=== PATIENT | female | born 1985 | race American Indian/Alaskan Native ===

== ENCOUNTER 2020-01-25 10:53 | Day surgery (SDC) | payer OTHER, MEDICAID ==
--- NOTE | 2020-01-25 08:36 | History and Physical Report ---
History of Present Illness Date of examination: 01/25/20 Chief complaint: , vaginal bleeding History of present illness: Pt is a 34 year old [place] LMP 10/18/19 at 14w1d by LMP was noted to have a missed at 11 wks on 01/23/20. On 01/24/20 she presented with vaginal bleeding and presents today for surgical management of incomplete . Past History Past Medical History: GERD Past Surgical History: D&C Family/Genetic History: stroke Social history: - Obstetrical History Expected Date of Delivery: 07/24/20 Actual Gestation: 14 Week(s) 1 Day(s) : 2 Para: 0 Hx # Term Pregnancies: 0 Number of Pregnancies: 0 Spontaneous Abortions: 0 Induced : 1 Number of Living Children: 0 Review of Systems All systems: negative - Physical Exam Breasts: Positive: deferred Abdomen: Positive: soft Genitourinary (Female): Positive: normal external genitalia Extremities: Positive: normal Results All other labs normal. Assessment and Plan A: Incomplete at 11 wks P: Proceed with suction dilation and curettage and other indicated procedures
[~2020-01-25 10:53] MED LIST: LACTATED RINGERS 1,000 ML IV SCH
--- NOTE | 2020-01-25 11:33 | Anesthesia Consultation ---
Anesthesia Consult and Med Hx Date of service: 01/25/20 - Airway Anesthetic Teeth Evaluation: Good ROM Head & Neck: Adequate Mental/Hyoid Distance: Adequate Mallampati Class: Class III Intubation Access Assessment: Possibly Difficult - Pulmonary Exam CTA: Yes - Cardiac Exam Cardiac Exam: RRR - Pre-Operative Health Status ASA Pre-Surgery Classification: ASA1 Proposed Anesthetic Plan: General - Pulmonary Hx Smoking: No Hx Respiratory Symptoms: No - Cardiovascular System Hx Hypertension: No - Central Nervous System CVA: No - Gastrointestinal Hx Gastroesophageal Reflux Disease: Yes (well controlled) - Endocrine Hx Renal Disease: No Hx Liver Disease: No Hx Insulin Dependent Diabetes: No Hx Non-Insulin Dependent Diabetes: No Hx Thyroid Disease: No - Other Systems Hx Obesity: No - Additional Comments Anesthesia Medical History Comments: No prior GA. No FHx anesthetic complications. Missed Ab at 11wks.
[2020-01-25] MEDS ORDERED: fentaNYL 100 MCG/2 ML INJ IV PRN (11:34)
--- NOTE | 2020-01-25 11:34 | Anesthesia Day of Surgery ---
Anesthesia Day of Surgery - Day of Surgery Patient Examined: Yes Patient H&P Reviewed: Yes Patient is NPO: Yes
[2020-01-25] MEDS ORDERED: miSOPROStol 200 MCG TAB PR ONE ×2 (12:00→14:27)
[2020-01-25] MEDS ORDERED: DOXYCYCLINE HYCLATE 100 MG in SODIUM CHLORIDE 0.9% 250ML 250 ML IV ONE (12:00)
[2020-01-25] MEDS ORDERED: SCOPOLAMINE TRANSDERMAL PATCH 72 HR TD NR (12:00)
[2020-01-25] MEDS ORDERED: MIDAZOLAM 2 MG/2 ML INJ IV NR (12:00)
[2020-01-25] MEDS ORDERED: METHYLERGONOVINE MALEATE 0.2 MG/ML VIAL IM ONE ×2 (12:00→14:28)
[2020-01-25 12:26] LABS: Basophils % (Auto) 0.3 % (0.0-1.8); Eosinophils # (Auto) 0.1 K/mm3 (0.0-0.4); Eosinophils % (Auto) 1.6 % (0.0-4.3); Hematocrit 35.4 % (30.3-42.9); Hemoglobin 11.8 gm/dl (10.1-14.3); Lymphocytes # (Auto) 1.6 K/mm3 (1.2-5.4); Lymphocytes % (Auto) 22.8 % (13.4-35.0); Mean Corpuscular HGB Conc 33 % (30-34); Mean Corpuscular Volume 93 fl (79-97); Monocytes # (Auto) 0.5 K/mm3 (0.0-0.8); Monocytes % (Auto) 7.2 % (0.0-7.3); Platelet Count 226 K/mm3 (140-440); Red Cell Distribution Width 13.9 % (13.2-15.2)
[2020-01-25] MEDS ORDERED: SILVER NITRATE APPLICATOR 1 EA TP ONE (13:31)
[2020-01-25] MEDS ORDERED: HYDROmorphone 1 MG/1 ML INJ ONE (13:59)
[2020-01-25] MEDS ORDERED: LIDOCAINE MPF (2%) 20 MG/1 ML VIAL 5 ML ONE (13:59)
[2020-01-25] MEDS ORDERED: propofoL 200 MG/20 ML VIAL IV ONE (13:59)
[2020-01-25] MEDS ORDERED: ONDANSETRON 4 MG/2 ML INJ ONE (14:29)
[2020-01-25] MEDS ORDERED: KETOROLAC 30 MG/1 ML INJ ONE (14:29)
[2020-01-25] MEDS ORDERED: SODIUM CHLORIDE 0.9% IRR 1,000 ML BOTTLE IR ONE (14:29)
--- NOTE | 2020-01-25 14:34 | Operative Report ---
Operative Report Operative Report: Date of procedure: January 25, 2020 Preoperative diagnosis: Incomplete at 11 wks Postoperative diagnosis: Same Procedure: Suction Dilation and Curettage Surgeon: Winnie Fernandez MD Anesthesia: General Findings: 1) Small mobile antervered uterus which sounded to 11 cm 2) Open cervical os with products of conception 3) No fetus visualized on ultrasound prior to the start of the procedure EBL: 50 mL IVF: 700 mL Urine output: 200 mL, clear, prior to procedure Specimens: Products of conception to pathology Drains: None Complications: None. Counts correct x 2 Disposition: Stable to PACU Indication for procedure: Pt is a 34 year old who presents for surgical management of incomplete at 11 wks. Procedure in detail: After the risks, benefits, alternatives and complications were explained to the patient she gave informed consent for the procedure. She was subsequently taken to the operating room with her IV noted to be running well. She was placed in the dorsal supine position and SCDs were noted to be in place and functioning. General anesthesia was then induced without difficulty. She was then placed in the dorsal lithotomy position and prepped and draped in a normal sterile fashion. A timeout was performed. An ultrasound was performed prior to the start of the procedure indicating no fetus was present, just products of conception. The bladder was emptied yielding 200 mL of clear urine. A bi-valve speculum was placed into the vagina for visualization of the cervix. A single-tooth tenaculum was placed on the anterior lip of the cervix. The cervix was serially dilated to a #29 Antonio dilator. A number 10 rigid suction curette was used to evacuate the uterine cavity. A sharp curettage was done and noted to be gritty x 4 quadrants. Ultrasound confirms a thin endometrial stripe. A dose of Methergine 0.2 mg IM was given to ensure hemostasis. All instruments were then removed from the vagina atraumatically. Misoprostol 800 mg was placed per rectum. At this time, the procedure was ended. The patient was placed into the dorsal supine position and extubated without difficulty. She was then taken to the PACU in stable condition. All counts were correct x 2.
--- NOTE | 2020-01-25 14:38 | Short Stay Summary ---
Short Stay Documentation Date of service: 01/25/20 - History H&P: dictated Social history: - Allergies and Medications Current Medications: Allergies chloroquine Allergy (Verified 01/25/20 11:15) Unknown Active Medications Fentanyl (Sublimaze) 50 mcg IV Q5MIN PRN PRN Reason: Pain , Severe (7-10) Lactated Ringer's (Lactated Ringers) 1,000 mls @ 100 mls/hr IV DIRECT PETE Last Admin: 01/25/20 12:00 Dose: 100 mls/hr Documented by: Midazolam HCl (Versed) 2 mg IV PREOP NR Stop: 01/25/20 23:59 Last Admin: 01/25/20 12:50 Dose: 2 mg Documented by: Scopolamine (Transderm-Scop) 1 each TD PREOP NR Stop: 01/25/20 18:00 Last Admin: 01/25/20 12:50 Dose: 1 each Documented by: - Physical exam Breasts: deferred - Brief post op/procedure progress note Date of procedure: 01/25/20 Pre-op diagnosis: Incomplete at 11 wks Post-op diagnosis: same Procedure: Suction dilation and curettage Anesthesia: MAC Findings: 1) Small mobile antervered uterus which sounded to 11 cm 2) Open cervical os with products of conception 3) No fetus visualized on ultrasound prior to the start of the procedure Surgeon: ALLAN FERNANDEZ Estimated blood loss: 50-100ml (50 mL) Pathology: list (products of conception) Specimen disposition: to lab Condition: stable - Hospital course Hospital course: Patient underwent suction dilation and curettage which he tolerated well. She was observed in the PACU until she met discharge criteria. She will follow-up in the office in [address] Fernandez. - Disposition Condition at discharge: Stable Disposition: DC-01 TO HOME OR SELFCARE - Discharge Diagnoses (1) Incomplete Status: Acute Short Stay Discharge Plan Activity: other (Nothing in vagina x 4 wks, no tub baths ) Weight Bearing Status: Full Weight Bearing Diet: regular Follow up with: PRIMARY CARE, [Primary Care Provider] - 7 Days Prescriptions: Doxycycline Hyclate 100 mg PO BID #14 tablet. Ibuprofen [Motrin] 800 mg PO Q8HR PRN #30 tablet PRN Reason: Pain, Moderate (4-6) oxyCODONE /ACETAMINOPHEN [Percocet 5/325] 1 tab PO Q6HR PRN #20 tablet PRN Reason: Pain
--- NOTE | 2020-01-25 14:53 | Ultrasound Report ---
ULTRASOUND GUIDANCE INTRAOPERATIVE HISTORY: Retained products of conception FINDINGS: Transabdominal grayscale ultrasound imaging was provided during D and C by [facility]MENT SPECIALIST. The init ial images demonstrate a slightly prominent endometrium measuring 1.1 cm in thickness. Post procedure the endometrium measures 3 mm. Please correlate with the procedural report as needed. IMPRESSION: Successful D and C under ultrasound guidance. Signer Name: Malvin Nieves Jr, MD Signed: 01/25/2020 2:49 PM Workstation Name: [id number]
[2020-01-25 18:53] VITALS: BP 112/60
--- NOTE | 2020-01-25 19:18 | Post Anesthesia Evaluation ---
- Post Anesthesia Evaluation Patient Participated: Yes Airway Patent: Yes Stable Respiratory Function: Yes Nausea/Vomiting: No Temp > 96.8F: Yes Pain Manageable: Yes Adequeate Hydration: Yes Anesthesia Complications: No Block Receding Appropriately: Not Applicable Patient on Ventilator: No
== END 2020-01-25 10:54 | disposition home or self-care (01) ==
LOC: OR 10:53
PROVIDERS: ATTEND Obstetrics & Gynecology
DX: O03.4 Incomplete spontaneous abortion without complication (principal); Z3A.11 11 weeks gestation of pregnancy; K21.9 Gastro-esophageal reflux disease without esophagitis; Z79.899 Other long term (current) drug therapy; Z88.8 Allergy status to other drugs, medicaments and biological substances
CPT/HCPCS: 36415; 59812; 76998; 85025; 86850; 86900; 86901; 88305; J1170; J1885; J2210; J2250; J2405; J2704; J7050; J7120

== ENCOUNTER 2021-03-18 15:16 | Inpatient (IN) | payer MEDICAID, OTHER ==
[2021-03-18] MEDS: LACTATED RINGERS 1,000 ML IV SCH (16:35)
[2021-03-18] MEDS: BETAMET ACET/BETAMET NA PH 6 MG/ML INJ 5 ML MDV IM SCH (18:19)
--- NOTE | 2021-03-18 20:11 | History and Physical Report ---
History of Present Illness Date of examination: 03/18/21 Chief complaint: Oligohydramnios History of present illness: 35yo @ 34w4d presents as admit from [facility] evaluation for oligohydramnios. Evaluation secondary to advanced maternal age and chronic hypertension. She denies contractions, LOF, or vaginal bleeding. +FM. No complaints. PNC per [facility]. Past History Past Medical History: hypertension Past Surgical History: D&C [employer] History: herpes Family/Genetic History: stroke Social history: no significant social history - Obstetrical History Expected Date of Delivery: 04/25/21 Actual Gestation: 34 Week(s) 5 Day(s) : 3 Para: 0 Spontaneous Abortions: 2 Medications and Allergies Allergies Allergy/AdvReac Type Severity Reaction Status Date / Time chloroquine Allergy Unknown Verified 01/25/20 11:15 Home Medications Medication Instructions Recorded Confirmed Last Taken Type Plus Tablet 1 tab PO DAILY 03/19/21 03/19/21 03/18/21 08:00 History Active Meds: Active Medications Betamethasone Acet/Betameth SodPhos (Betamet Acet/Betamet Na Ph 6 Mg/Ml Inj 5 Ml Mdv) 12 mg IM Q24H PETE Stop: 03/19/21 19:01 Last Admin: 03/18/21 18:19 Dose: 12 mg Documented by: Lactated Ringer's (Lactated Ringers) 1,000 mls @ 125 mls/hr IV DIRECT PETE Last Admin: 03/18/21 16:35 Dose: 125 mls/hr Documented by: - Vital Signs Vital signs: Vital Signs Pulse BP 76 118/67 03/18/21 15:53 03/18/21 15:53 Temp Pulse Resp BP Pulse Ox 98.0 F 84 20 128/64 99 03/18/21 19:24 03/18/21 20:08 03/18/21 19:24 03/18/21 19:21 03/18/21 20:08 - Physical Exam Breasts: Positive: normal Cardiovascular: Regular rate Lungs: Positive: Clear to auscultation Abdomen: Positive: normal appearance, normal bowel sounds. Negative: tenderness, guarding Genitourinary (Female): Positive: normal external genitalia Uterus: Positive: normal size Extremities: Positive: normal - Obstetrical FHR: category 1 Uterine Contraction Monitor Mode: External Uterine Contraction Pattern: Irregular Uterine Contraction Intensity: Mild Results All other labs normal. Assessment and Plan -continuous IV fluids -repeat BPP in 24 hours -continuous monitoring - Patient Problems (1) Oligohydramnios antepartum Current Visit: Yes Status: Acute Plan to address problem: -decreased GAYLA on MFM eval -continuous fluids -repeat BPP in AM -Beta x2 -MFM recommendations reviewed, if GAYLA <5cm on repeat evaluation plan for inpatient observation until delivery 36-37wks -if GAYLA>5 plan for outpatient surveillance -delivery earlier if warranted for maternal/ indications PNC per [facility] reviewed on chart. O+/Liz/HIV-HepB neg/RPRNR/OGTTelevated- 3OGTT neg -GBS ordered (2) Chronic hypertension affecting Current Visit: Yes Status: Acute Plan to address problem: labetalol 100 q d -monitor for s/s of superimposed preeclampsia (3) Advanced maternal age during Current Visit: Yes Status: Acute (4) Herpes infection in Current Visit: Yes Status: Acute Plan to address problem: -valacyclovir daily (5) Glucose intolerance Current Visit: Yes Status: Acute Plan to address problem: -3OGTT wnl
[2021-03-18] MEDS ORDERED: PRENATAL VIT27-FE FUMARATE-FOLIC ACID VIT TAB PO ONE (20:29)
[2021-03-18] MEDS: valACYclovir 500 MG TAB PO SCH (21:35)
[2021-03-18 21:58] LABS: Bilirubin,Urine NEG (Negative); Blood,Urine NEG (Negative); Color,Urine Straw (Yellow); Protein,Urine <15 mg/dL mg/dL (Negative); RBC,Urine < 1.0 /HPF (0.0-6.0); Urobilinogen,Urine < 2.0 mg/dL (<2.0); WBC,Urine < 1.0 /HPF (0.0-6.0)
[2021-03-19] MEDS: LACTATED RINGERS 1,000 ML IV SCH ×2 (04:31→18:35)
--- NOTE | 2021-03-19 07:45 | Progress Note ---
Assessment and Plan - Patient Problems (1) Oligohydramnios antepartum Current Visit: Yes Status: Acute Plan to address problem: Plan for induction at 36 weeks Subjective - Subjective Date of service: 03/19/21 Interval history: 35-year-old -0-2-0 at 34+5 weeks admitted for oligohydramnios. Plan is to deliver at 36 weeks. The patient is currently without complaints. Patient reports: no new complaints, no loss of fluid Objective - Vital Signs Vital Signs: Vital Signs - 12hr 03/18/21 03/18/21 03/18/21 19:45 19:50 19:55 Temperature Pulse Rate 81 86 83 Respiratory Rate Blood Pressure O2 Sat by Pulse 98 99 98 Oximetry 03/18/21 03/18/21 03/18/21 20:03 20:08 20:13 Temperature Pulse Rate 81 84 84 Respiratory Rate Blood Pressure O2 Sat by Pulse 99 99 99 Oximetry 03/18/21 03/18/21 03/18/21 20:18 20:23 20:28 Temperature Pulse Rate 83 81 81 Respiratory Rate Blood Pressure O2 Sat by Pulse 99 100 99 Oximetry 03/18/21 03/18/21 03/18/21 20:33 20:37 20:43 Temperature Pulse Rate 79 73 77 Respiratory Rate Blood Pressure O2 Sat by Pulse 98 98 98 Oximetry 03/18/21 03/18/21 03/18/21 20:48 20:53 20:58 Temperature Pulse Rate 73 85 82 Respiratory Rate Blood Pressure O2 Sat by Pulse 98 98 98 Oximetry 03/18/21 03/18/21 03/18/21 21:07 21:12 21:17 Temperature Pulse Rate 85 66 78 Respiratory Rate Blood Pressure O2 Sat by Pulse 100 99 99 Oximetry 03/18/21 03/18/21 03/18/21 21:22 21:27 21:32 Temperature Pulse Rate 72 75 81 Respiratory Rate Blood Pressure O2 Sat by Pulse 99 98 99 Oximetry 03/18/21 03/18/21 03/18/21 21:37 21:42 21:47 Temperature Pulse Rate 76 69 78 Respiratory Rate Blood Pressure O2 Sat by Pulse 99 99 99 Oximetry 03/18/21 03/18/21 03/18/21 21:52 21:57 22:08 Temperature Pulse Rate 80 76 78 Respiratory Rate Blood Pressure O2 Sat by Pulse 99 99 98 Oximetry 05/04/0303/18/21 03/18/21 22:13 22:18 22:23 Temperature Pulse Rate 72 68 75 Respiratory Rate Blood Pressure O2 Sat by Pulse 99 100 99 Oximetry 03/18/21 03/18/21 03/18/21 22:28 22:33 22:38 Temperature Pulse Rate 74 67 66 Respiratory Rate Blood Pressure O2 Sat by Pulse 99 98 99 Oximetry 03/18/21 03/18/21 03/18/21 22:43 22:48 22:53 Temperature Pulse Rate 75 91 H 74 Respiratory Rate Blood Pressure O2 Sat by Pulse 98 98 98 Oximetry 03/18/21 03/18/21 03/18/21 22:58 23:03 23:11 Temperature Pulse Rate 78 81 88 Respiratory Rate Blood Pressure O2 Sat by Pulse 98 98 99 Oximetry 03/18/21 03/18/21 03/18/21 23:16 23:21 23:26 Temperature Pulse Rate 82 79 79 Respiratory Rate Blood Pressure O2 Sat by Pulse 99 98 97 Oximetry 03/18/21 03/18/21 03/18/21 23:31 23:36 23:41 Temperature Pulse Rate 77 86 95 H Respiratory Rate Blood Pressure 103/58 O2 Sat by Pulse 98 97 98 Oximetry 03/18/21 03/18/21 03/18/21 23:46 23:51 23:56 Temperature Pulse Rate 69 74 72 Respiratory Rate Blood Pressure O2 Sat by Pulse 97 98 98 Oximetry 03/19/21 03/19/21 03/19/21 00:01 00:06 00:11 Temperature Pulse Rate 73 70 78 Respiratory Rate Blood Pressure O2 Sat by Pulse 98 98 98 Oximetry 03/19/21 03/19/21 03/19/21 00:16 00:23 00:28 Temperature Pulse Rate 69 82 85 Respiratory Rate Blood Pressure O2 Sat by Pulse 98 99 99 Oximetry 03/19/21 03/19/21 03/19/21 00:33 00:38 00:43 Temperature Pulse Rate 80 76 79 Respiratory Rate Blood Pressure O2 Sat by Pulse 99 99 99 Oximetry 03/19/21 03/19/21 03/19/21 00:48 00:53 00:58 Temperature Pulse Rate 86 74 90 Respiratory Rate Blood Pressure O2 Sat by Pulse 98 98 98 Oximetry 03/19/21 03/19/21 03/19/21 01:00 01:03 01:08 Temperature 98.1 F Pulse Rate 82 75 Respiratory Rate Blood Pressure O2 Sat by Pulse 98 99 Oximetry 03/19/21 03/19/21 03/19/21 01:13 01:18 01:23 Temperature Pulse Rate 93 H 78 92 H Respiratory Rate Blood Pressure O2 Sat by Pulse 98 98 98 Oximetry 03/19/21 03/19/21 03/19/21 01:28 01:33 01:41 Temperature Pulse Rate 80 74 77 Respiratory Rate Blood Pressure O2 Sat by Pulse 98 98 99 Oximetry 03/19/21 03/19/21 03/19/21 01:46 01:51 01:56 Temperature Pulse Rate 82 80 88 Respiratory Rate Blood Pressure O2 Sat by Pulse 99 99 100 Oximetry 03/19/21 03/19/21 03/19/21 02:01 02:06 02:11 Temperature Pulse Rate 77 87 91 H Respiratory Rate Blood Pressure O2 Sat by Pulse 98 98 98 Oximetry 03/19/21 03/19/21 03/19/21 02:16 02:21 02:26 Temperature Pulse Rate 83 91 H 91 H Respiratory Rate Blood Pressure O2 Sat by Pulse 99 98 98 Oximetry 03/19/21 03/19/21 03/19/21 02:31 02:40 02:45 Temperature Pulse Rate 75 87 93 H Respiratory Rate Blood Pressure O2 Sat by Pulse 98 99 99 Oximetry 03/19/21 03/19/21 03/19/21 02:50 02:55 03:00 Temperature Pulse Rate 80 97 H 92 H Respiratory Rate Blood Pressure O2 Sat by Pulse 99 99 98 Oximetry 03/19/21 03/19/21 03/19/21 03:05 03:10 03:15 Temperature Pulse Rate 75 80 78 Respiratory Rate Blood Pressure 107/61 O2 Sat by Pulse 98 99 99 Oximetry 03/19/21 03/19/21 03/19/21 03:20 03:25 03:30 Temperature Pulse Rate 96 H 86 91 H Respiratory Rate Blood Pressure O2 Sat by Pulse 99 99 100 Oximetry 03/19/21 03/19/21 03/19/21 03:35 03:40 03:45 Temperature Pulse Rate 91 H 78 91 H Respiratory Rate Blood Pressure O2 Sat by Pulse 99 98 98 Oximetry 03/19/21 03/19/21 03/19/21 03:50 03:55 04:00 Temperature Pulse Rate 96 H 81 91 H Respiratory Rate Blood Pressure O2 Sat by Pulse 99 98 98 Oximetry 03/19/21 03/19/21 03/19/21 04:05 04:12 04:17 Temperature Pulse Rate 81 96 H 89 Respiratory Rate Blood Pressure O2 Sat by Pulse 98 100 99 Oximetry 03/19/21 03/19/21 03/19/21 04:22 04:27 04:32 Temperature Pulse Rate 92 H 78 99 H Respiratory Rate Blood Pressure O2 Sat by Pulse 98 99 99 Oximetry 03/19/21 03/19/21 03/19/21 04:37 04:42 04:47 Temperature Pulse Rate 71 92 H 76 Respiratory Rate Blood Pressure O2 Sat by Pulse 98 98 99 Oximetry 03/19/21 03/19/21 03/19/21 04:52 04:57 05:02 Temperature Pulse Rate 80 97 H 75 Respiratory Rate Blood Pressure O2 Sat by Pulse 99 99 99 Oximetry 03/19/21 03/19/21 03/19/21 05:07 05:15 05:20 Temperature Pulse Rate 85 94 H 79 Respiratory Rate Blood Pressure O2 Sat by Pulse 99 99 99 Oximetry 03/19/21 03/19/21 03/19/21 05:25 05:30 05:35 Temperature Pulse Rate 65 77 76 Respiratory Rate Blood Pressure O2 Sat by Pulse 99 99 99 Oximetry 03/19/21 03/19/21 03/19/21 05:40 05:45 05:50 Temperature Pulse Rate 70 90 91 H Respiratory Rate Blood Pressure O2 Sat by Pulse 99 99 98 Oximetry 03/19/21 03/19/21 03/19/21 05:55 06:00 06:05 Temperature Pulse Rate 92 H 88 95 H Respiratory Rate Blood Pressure O2 Sat by Pulse 99 98 98 Oximetry 03/19/21 03/19/21 03/19/21 06:10 06:14 06:15 Temperature Pulse Rate 76 96 H 99 H Respiratory Rate Blood Pressure 98/55 O2 Sat by Pulse 98 99 Oximetry 03/19/21 03/19/21 03/19/21 06:17 06:20 06:25 Temperature 98.6 F Pulse Rate 102 H 87 Respiratory 20 Rate Blood Pressure O2 Sat by Pulse 98 98 99 Oximetry 03/19/21 03/19/21 03/19/21 06:30 06:35 06:40 Temperature Pulse Rate 81 95 H 99 H Respiratory Rate Blood Pressure O2 Sat by Pulse 98 99 98 Oximetry 03/19/21 03/19/21 03/19/21 06:45 06:50 06:55 Temperature Pulse Rate 80 89 103 H Respiratory Rate Blood Pressure O2 Sat by Pulse 98 99 99 Oximetry 03/19/21 03/19/21 03/19/21 07:00 07:05 07:10 Temperature Pulse Rate 102 H 99 H 76 Respiratory Rate Blood Pressure O2 Sat by Pulse 99 98 98 Oximetry 03/19/21 03/19/21 03/19/21 07:15 07:20 07:25 Temperature Pulse Rate 75 70 75 Respiratory Rate Blood Pressure O2 Sat by Pulse 98 98 98 Oximetry 03/19/21 03/19/21 03/19/21 07:30 07:35 07:40 Temperature Pulse Rate 89 77 91 H Respiratory Rate Blood Pressure O2 Sat by Pulse 98 98 98 Oximetry - Labs Labs: Laboratory Results - last 24 hr 03/18/21 03/18/21 20:35 21:41 Urine Color Straw Urine Turbidity Clear Urine pH 7.0 Ur Specific [place] 1.006 Urine Protein <15 mg/dl Urine Glucose (UA) Neg Urine Ketones Neg Urine Blood Neg Urine Nitrite Neg Urine Bilirubin Neg Urine Urobilinogen < 2.0 Ur Leukocyte Esterase Neg Urine WBC (Auto) < 1.0 Urine RBC (Auto) < 1.0 U Epithel Cells (Auto) 1.0 Membranes Rupture Negative
--- NOTE | 2021-03-19 08:06 | Consultation ---
History of Present Illness Consult date: 03/19/21 Past History Past Medical History: hypertension Past Surgical History: D&C [employer] History: herpes Family/Genetic History: stroke - Obstetrical History : 3 Medications and Allergies Allergies Allergy/AdvReac Type Severity Reaction Status Date / Time chloroquine Allergy Unknown Verified 01/25/20 11:15 Home Medications Medication Instructions Recorded Confirmed Last Taken Type Plus Tablet 1 tab PO DAILY 03/19/21 03/19/21 03/18/21 08:00 History Active Meds: Active Medications Betamethasone Acet/Betameth SodPhos (Betamet Acet/Betamet Na Ph 6 Mg/Ml Inj 5 Ml Mdv) 12 mg IM Q24H PETE Stop: 03/19/21 19:01 Last Admin: 03/18/21 18:19 Dose: 12 mg Documented by: Lactated Ringer's (Lactated Ringers) 1,000 mls @ 125 mls/hr IV DIRECT PETE Last Admin: 03/19/21 04:31 Dose: 125 mls/hr Documented by: Labetalol HCl (Labetalol 100 Mg Tab) 100 mg PO QDAY PETE Valacyclovir HCl (Valacyclovir 500 Mg Tab) 1,000 mg PO QDAY PETE Last Admin: 03/18/21 21:35 Dose: 1,000 mg Documented by: - Vital Signs Vital signs: Vital Signs Pulse BP 76 118/67 03/18/21 15:53 03/18/21 15:53 Temp Pulse Resp BP Pulse Ox 98.6 F 90 20 98/55 98 03/19/21 06:17 03/19/21 08:00 03/19/21 06:17 03/19/21 06:14 03/19/21 08:00 Results All other labs normal. [facility] and [facility] to follow Pt seen yesterday in the office and was noted to have an GAYLA of 5cm She was sent to [facility] for evalaution to r/o ROM . ROM test was negative A: IUP at 34 5/7 weeks gestation -complete course of steroids CHTN stable on current labetalol dose Decreased GAYLA : continuous monitoring, monitor for Cat III tracing Repeat GAYLA /BPP/Doppler today Continued hospitalization is advised if the GAYLA remains 5cm or less
[2021-03-19] MEDS: valACYclovir 500 MG TAB PO SCH (10:05)
--- NOTE | 2021-03-19 12:37 | Ultrasound Report ---
ULTRASOUND BIOPHYSICAL PROFILE INDICATION: LOW GAYLA. COMPARISON: None available. FINDINGS: heart rate is 133 beats per minute. breathing movement = 2 Gross body movement = 2 tone = 2 Qualitative amniotic fluid volume = 0 IMPRESSION: biophysical profile = 04/21 Signer Name: Malvin Nieves Jr, MD Signed: 03/19/2021 12:32 PM Workstation Name: [id number]
[2021-03-19 18:29] LABS: Hematocrit 31.3 % (30.3-42.9); Hemoglobin 10.3 gm/dl (10.1-14.3); Mean Corpuscular HGB Conc 33 % (30-34); Mean Corpuscular Volume 94 fl (79-97); Platelet Count 184 K/mm3 (140-440); Red Blood Count 3.34 M/mm3 (3.65-5.03); Red Cell Distribution Width 13.5 % (13.2-15.2)
[2021-03-19] MEDS: BETAMET ACET/BETAMET NA PH 6 MG/ML INJ 5 ML MDV IM SCH (18:35)
[2021-03-20] MEDS: LACTATED RINGERS 1,000 ML IV SCH ×2 (04:51→22:46)
[2021-03-20] MEDS: valACYclovir 500 MG TAB PO SCH (10:07)
--- NOTE | 2021-03-20 13:18 | Progress Note ---
Assessment and Plan - Patient Problems (1) Oligohydramnios antepartum Current Visit: Yes Status: Acute Plan to address problem: continue inpatient monitoring with delivery at 36 weeks Subjective - Subjective Date of service: 03/20/21 Interval history: 35-year-old -0-2-0 at 34+6 weeks admitted for oligohydramnios. Plan is to deliver at 36 weeks. Patient is having regular contractions that are not painful. Patient reports: contractions, no loss of fluid Objective - Vital Signs Vital Signs: Vital Signs - 12hr 03/20/21 03/20/21 03/20/21 01:19 01:24 01:29 Temperature Pulse Rate 77 73 79 Respiratory Rate Blood Pressure Blood Pressure [Left] O2 Sat by Pulse 99 98 98 Oximetry 03/20/21 03/20/21 03/20/21 01:34 01:37 01:39 Temperature Pulse Rate 76 88 77 Respiratory Rate Blood Pressure 100/54 Blood Pressure [Left] O2 Sat by Pulse 98 98 Oximetry 03/20/21 03/20/21 03/20/21 01:44 01:49 01:54 Temperature Pulse Rate 77 72 78 Respiratory Rate Blood Pressure Blood Pressure [Left] O2 Sat by Pulse 97 97 97 Oximetry 03/20/21 03/20/21 03/20/21 02:03 02:08 02:13 Temperature Pulse Rate 92 H 75 78 Respiratory Rate Blood Pressure Blood Pressure [Left] O2 Sat by Pulse 94 98 97 Oximetry 03/20/21 03/20/21 03/20/21 02:18 02:23 02:28 Temperature Pulse Rate 62 66 65 Respiratory Rate Blood Pressure Blood Pressure [Left] O2 Sat by Pulse 98 98 98 Oximetry 03/20/21 03/20/21 03/20/21 02:33 02:38 02:43 Temperature Pulse Rate 64 71 63 Respiratory Rate Blood Pressure Blood Pressure [Left] O2 Sat by Pulse 98 98 97 Oximetry 03/20/21 03/20/21 03/20/21 02:48 02:53 02:58 Temperature Pulse Rate 67 64 64 Respiratory Rate Blood Pressure Blood Pressure [Left] O2 Sat by Pulse 98 97 97 Oximetry 03/20/21 03/20/21 03/20/21 03:03 03:08 03:13 Temperature Pulse Rate 89 74 70 Respiratory Rate Blood Pressure Blood Pressure [Left] O2 Sat by Pulse 98 98 98 Oximetry 03/20/21 03/20/21 03/20/21 03:18 03:23 03:28 Temperature Pulse Rate 75 90 77 Respiratory Rate Blood Pressure Blood Pressure [Left] O2 Sat by Pulse 98 98 97 Oximetry 03/20/21 03/20/21 03/20/21 03:29 03:33 03:37 Temperature Pulse Rate 104 H 91 H 82 Respiratory Rate Blood Pressure 93/55 Blood Pressure [Left] O2 Sat by Pulse 91 98 Oximetry 03/20/21 03/20/21 03/20/21 03:38 03:40 03:43 Temperature 98.1 F Pulse Rate 82 78 Respiratory Rate Blood Pressure Blood Pressure [Left] O2 Sat by Pulse 98 98 Oximetry 03/20/21 03/20/21 03/20/21 03:48 03:53 04:03 Temperature Pulse Rate 76 73 87 Respiratory Rate Blood Pressure Blood Pressure [Left] O2 Sat by Pulse 97 97 99 Oximetry 03/20/21 03/20/21 03/20/21 04:08 04:13 04:18 Temperature Pulse Rate 71 62 62 Respiratory Rate Blood Pressure Blood Pressure [Left] O2 Sat by Pulse 98 98 99 Oximetry 03/20/21 03/20/21 03/20/21 04:23 04:28 04:33 Temperature Pulse Rate 63 65 66 Respiratory Rate Blood Pressure Blood Pressure [Left] O2 Sat by Pulse 98 98 98 Oximetry 03/20/21 03/20/21 03/20/21 04:37 04:38 04:43 Temperature Pulse Rate 67 67 68 Respiratory Rate Blood Pressure 97/56 Blood Pressure [Left] O2 Sat by Pulse 99 99 Oximetry 03/20/21 03/20/21 03/20/21 04:48 04:53 04:58 Temperature Pulse Rate 63 66 69 Respiratory Rate Blood Pressure Blood Pressure [Left] O2 Sat by Pulse 99 97 97 Oximetry 03/20/21 03/20/21 03/20/21 05:03 05:08 05:13 Temperature Pulse Rate 76 72 66 Respiratory Rate Blood Pressure Blood Pressure [Left] O2 Sat by Pulse 97 98 98 Oximetry 03/20/21 03/20/21 03/20/21 05:18 05:25 05:30 Temperature Pulse Rate 70 110 H 79 Respiratory Rate Blood Pressure Blood Pressure [Left] O2 Sat by Pulse 98 98 99 Oximetry 03/20/21 03/20/21 03/20/21 05:35 05:37 05:40 Temperature Pulse Rate 70 79 78 Respiratory Rate Blood Pressure 106/56 Blood Pressure [Left] O2 Sat by Pulse 99 99 Oximetry 03/20/21 03/20/21 03/20/21 05:45 05:50 05:55 Temperature Pulse Rate 81 87 81 Respiratory Rate Blood Pressure Blood Pressure [Left] O2 Sat by Pulse 99 99 98 Oximetry 03/20/21 03/20/21 03/20/21 06:00 06:11 06:16 Temperature Pulse Rate 81 99 H 71 Respiratory Rate Blood Pressure Blood Pressure [Left] O2 Sat by Pulse 98 99 98 Oximetry 03/20/21 03/20/21 03/20/21 06:21 06:26 06:31 Temperature Pulse Rate 71 74 78 Respiratory Rate Blood Pressure Blood Pressure [Left] O2 Sat by Pulse 98 97 99 Oximetry 03/20/21 03/20/21 03/20/21 06:36 06:37 06:41 Temperature Pulse Rate 70 70 61 Respiratory Rate Blood Pressure 97/59 Blood Pressure [Left] O2 Sat by Pulse 98 98 Oximetry 03/20/21 03/20/21 03/20/21 06:46 06:51 06:56 Temperature Pulse Rate 72 69 69 Respiratory Rate Blood Pressure Blood Pressure [Left] O2 Sat by Pulse 97 97 97 Oximetry 03/20/21 03/20/21 03/20/21 07:01 07:06 07:11 Temperature Pulse Rate 83 65 70 Respiratory Rate Blood Pressure Blood Pressure [Left] O2 Sat by Pulse 98 98 98 Oximetry 03/20/21 03/20/21 03/20/21 07:16 07:23 07:28 Temperature Pulse Rate 66 88 71 Respiratory Rate Blood Pressure Blood Pressure [Left] O2 Sat by Pulse 99 99 99 Oximetry 03/20/21 03/20/21 03/20/21 07:33 07:37 07:38 Temperature Pulse Rate 69 69 72 Respiratory Rate Blood Pressure 102/58 Blood Pressure [Left] O2 Sat by Pulse 98 98 Oximetry 03/20/21 03/20/21 03/20/21 07:42 07:43 07:47 Temperature 97.9 F Pulse Rate 76 78 74 Respiratory 18 Rate Blood Pressure 108/63 Blood Pressure 108/63 [Left] O2 Sat by Pulse 91 99 99 Oximetry 03/20/21 03/20/21 03/20/21 07:48 07:53 07:58 Temperature Pulse Rate 71 73 70 Respiratory Rate Blood Pressure Blood Pressure [Left] O2 Sat by Pulse 100 100 100 Oximetry 03/20/21 03/20/21 03/20/21 08:08 08:10 08:13 Temperature Pulse Rate 96 H 80 84 Respiratory Rate Blood Pressure Blood Pressure [Left] O2 Sat by Pulse 100 92 98 Oximetry 03/20/21 03/20/21 03/20/21 08:18 08:23 08:28 Temperature Pulse Rate 72 74 78 Respiratory Rate Blood Pressure Blood Pressure [Left] O2 Sat by Pulse 99 92 99 Oximetry 03/20/21 03/20/21 03/20/21 08:33 08:37 08:38 Temperature Pulse Rate 76 83 81 Respiratory Rate Blood Pressure 105/56 Blood Pressure [Left] O2 Sat by Pulse 99 99 Oximetry 03/20/21 03/20/21 03/20/21 08:43 08:48 08:53 Temperature Pulse Rate 84 102 H 96 H Respiratory Rate Blood Pressure Blood Pressure [Left] O2 Sat by Pulse 99 98 99 Oximetry 03/20/21 03/20/21 03/20/21 08:58 09:03 09:07 Temperature Pulse Rate 102 H 106 H 99 H Respiratory Rate Blood Pressure Blood Pressure [Left] O2 Sat by Pulse 98 98 93 Oximetry 03/20/21 03/20/21 03/20/21 09:08 09:13 09:18 Temperature Pulse Rate 100 H 88 78 Respiratory Rate Blood Pressure Blood Pressure [Left] O2 Sat by Pulse 94 100 100 Oximetry 03/20/21 03/20/21 03/20/21 09:23 09:28 09:33 Temperature Pulse Rate 86 82 78 Respiratory Rate Blood Pressure Blood Pressure [Left] O2 Sat by Pulse 99 100 98 Oximetry 03/20/21 03/20/21 03/20/21 09:37 09:38 09:43 Temperature Pulse Rate 76 83 78 Respiratory Rate Blood Pressure 113/60 Blood Pressure [Left] O2 Sat by Pulse 98 98 Oximetry 03/20/21 03/20/21 03/20/21 09:48 10:00 10:01 Temperature Pulse Rate 74 112 H 110 H Respiratory Rate Blood Pressure Blood Pressure [Left] O2 Sat by Pulse 99 100 94 Oximetry 03/20/21 03/20/21 03/20/21 10:05 10:06 10:10 Temperature Pulse Rate 86 94 H 82 Respiratory Rate Blood Pressure 111/63 111/63 Blood Pressure [Left] O2 Sat by Pulse 99 99 Oximetry 03/20/21 03/20/21 03/20/21 10:15 10:20 10:25 Temperature Pulse Rate 75 71 74 Respiratory Rate Blood Pressure Blood Pressure [Left] O2 Sat by Pulse 98 98 98 Oximetry 03/20/21 03/20/21 03/20/21 10:30 10:35 10:37 Temperature Pulse Rate 65 80 85 Respiratory Rate Blood Pressure 102/62 Blood Pressure [Left] O2 Sat by Pulse 98 98 Oximetry 03/20/21 03/20/21 03/20/21 10:40 10:45 10:50 Temperature Pulse Rate 81 79 102 H Respiratory Rate Blood Pressure Blood Pressure [Left] O2 Sat by Pulse 98 98 97 Oximetry 03/20/21 03/20/21 03/20/21 10:55 11:00 11:01 Temperature 97.9 F Pulse Rate 95 H 74 85 Respiratory 16 Rate Blood Pressure 98/53 Blood Pressure 98/53 [Left] O2 Sat by Pulse 98 98 98 Oximetry 03/20/21 03/20/21 03/20/21 11:05 11:10 11:15 Temperature Pulse Rate 93 H 76 82 Respiratory Rate Blood Pressure Blood Pressure [Left] O2 Sat by Pulse 96 97 98 Oximetry 03/20/21 03/20/21 03/20/21 11:20 11:25 11:30 Temperature Pulse Rate 91 H 84 75 Respiratory Rate Blood Pressure Blood Pressure [Left] O2 Sat by Pulse 99 99 99 Oximetry 03/20/21 03/20/21 03/20/21 11:35 11:43 11:48 Temperature Pulse Rate 108 H 100 H 82 Respiratory Rate Blood Pressure Blood Pressure [Left] O2 Sat by Pulse 96 96 97 Oximetry 03/20/21 03/20/21 03/20/21 11:53 11:58 12:03 Temperature Pulse Rate 73 67 69 Respiratory Rate Blood Pressure Blood Pressure [Left] O2 Sat by Pulse 100 98 98 Oximetry 03/20/21 03/20/21 03/20/21 12:08 12:12 12:13 Temperature Pulse Rate 70 77 79 Respiratory Rate Blood Pressure 117/62 Blood Pressure [Left] O2 Sat by Pulse 98 98 Oximetry 03/20/21 03/20/21 03/20/21 12:18 12:23 12:31 Temperature Pulse Rate 74 80 79 Respiratory Rate Blood Pressure Blood Pressure [Left] O2 Sat by Pulse 99 97 99 Oximetry 03/20/21 03/20/21 03/20/21 12:36 12:37 12:41 Temperature Pulse Rate 89 90 74 Respiratory Rate Blood Pressure 115/73 Blood Pressure [Left] O2 Sat by Pulse 100 99 Oximetry 03/20/21 03/20/21 03/20/21 12:46 12:51 12:56 Temperature Pulse Rate 91 H 88 96 H Respiratory Rate Blood Pressure Blood Pressure [Left] O2 Sat by Pulse 100 100 100 Oximetry - Labs Labs: Abnormal Labs 03/19/21 17:23 WBC 13.6 H RBC 3.34 L Laboratory Results - last 24 hr 03/19/21 03/19/21 03/19/21 17:23 17:40 17:54 WBC 13.6 H RBC 3.34 L Hgb 10.3 Hct 31.3 MCV 94 MCH 31 MCHC 33 RDW 13.5 Plt Count 184 Syphilis IgG Antibody Nonreactive Blood Type O POSITIVE Antibody Screen Negative
[2021-03-21] MEDS: LACTATED RINGERS 1,000 ML IV SCH ×2 (06:09→10:02)
--- NOTE | 2021-03-21 09:34 | Progress Note ---
Assessment and Plan -continuous IV fluids -continuous monitoring - Patient Problems (1) Oligohydramnios antepartum Current Visit: Yes Status: Acute Plan to address problem: -continuous fluids -repeat BPP, persistently low fluid, repeat in AM -s/p Beta x2 -IOL at 36wks PNC per [facility] reviewed on chart. O+/Liz/HIV-HepB neg/RPRNR/OGTTelevated- 3OGTT neg -GBS ordered (2) Chronic hypertension affecting Current Visit: Yes Status: Acute Plan to address problem: labetalol 100 q d -monitor for s/s of superimposed preeclampsia (3) Advanced maternal age during Current Visit: Yes Status: Acute (4) Herpes infection in Current Visit: Yes Status: Acute (5) Glucose intolerance Current Visit: Yes Status: Acute Subjective - Subjective Principal diagnosis: Oligohydramnios Interval history: 35yo @ 35wks presents as admit from [facility] evaluation for oligohydramnios with plan for inpatient monitoring and delivery if findings persist. Evaluation secondary to advanced maternal age and chronic hypertension. No new complaints. Patient reports: new complaints, movement normal, contractions, no loss of fluid Objective - Vital Signs Vital Signs: Vital Signs - 12hr 03/20/21 03/20/21 03/20/21 21:35 21:40 21:45 Temperature Pulse Rate 82 77 78 Respiratory Rate Blood Pressure O2 Sat by Pulse 98 99 99 Oximetry 03/20/21 03/20/21 03/20/21 21:50 21:55 22:00 Temperature Pulse Rate 80 74 74 Respiratory Rate Blood Pressure O2 Sat by Pulse 99 98 99 Oximetry 03/20/21 03/20/21 03/20/21 22:05 22:10 22:15 Temperature Pulse Rate 78 80 79 Respiratory Rate Blood Pressure O2 Sat by Pulse 98 98 97 Oximetry 03/20/21 03/20/21 03/20/21 22:22 22:27 22:32 Temperature Pulse Rate 94 H 90 82 Respiratory Rate Blood Pressure O2 Sat by Pulse 100 99 99 Oximetry 03/20/21 03/20/21 03/20/21 22:37 22:42 22:47 Temperature Pulse Rate 81 73 82 Respiratory Rate Blood Pressure O2 Sat by Pulse 99 98 99 Oximetry 03/20/21 03/20/21 03/20/21 22:52 22:57 23:02 Temperature Pulse Rate 74 75 77 Respiratory Rate Blood Pressure O2 Sat by Pulse 99 99 99 Oximetry 03/20/21 03/20/21 03/20/21 23:07 23:15 23:20 Temperature Pulse Rate 78 87 76 Respiratory Rate Blood Pressure O2 Sat by Pulse 99 99 99 Oximetry 03/20/21 03/20/21 03/20/21 23:25 23:30 23:35 Temperature Pulse Rate 80 71 70 Respiratory Rate Blood Pressure O2 Sat by Pulse 98 98 97 Oximetry 03/20/21 03/20/21 03/20/21 23:40 23:45 23:50 Temperature Pulse Rate 76 72 83 Respiratory Rate Blood Pressure O2 Sat by Pulse 97 97 98 Oximetry 03/20/21 03/21/21 03/21/21 23:55 00:00 00:05 Temperature Pulse Rate 74 73 74 Respiratory Rate Blood Pressure O2 Sat by Pulse 97 97 97 Oximetry 03/21/21 03/21/21 03/21/21 00:10 00:15 00:20 Temperature Pulse Rate 74 85 69 Respiratory Rate Blood Pressure O2 Sat by Pulse 97 98 98 Oximetry 03/21/21 03/21/21 03/21/21 00:28 00:29 00:30 Temperature 98.6 F Pulse Rate 91 H 77 Respiratory Rate Blood Pressure 101/56 O2 Sat by Pulse 98 Oximetry 03/21/21 03/21/21 03/21/21 00:33 00:38 00:43 Temperature Pulse Rate 79 81 76 Respiratory Rate Blood Pressure O2 Sat by Pulse 99 99 98 Oximetry 03/21/21 03/21/21 03/21/21 00:48 00:53 00:58 Temperature Pulse Rate 83 81 87 Respiratory Rate Blood Pressure O2 Sat by Pulse 99 98 99 Oximetry 03/21/21 03/21/21 03/21/21 01:03 01:08 01:13 Temperature Pulse Rate 77 76 80 Respiratory Rate Blood Pressure O2 Sat by Pulse 98 97 98 Oximetry 03/21/21 03/21/21 03/21/21 01:18 01:23 01:28 Temperature Pulse Rate 76 86 79 Respiratory Rate Blood Pressure O2 Sat by Pulse 98 98 98 Oximetry 03/21/21 03/21/21 03/21/21 01:33 01:38 01:43 Temperature Pulse Rate 77 72 92 H Respiratory Rate Blood Pressure O2 Sat by Pulse 98 98 98 Oximetry 03/21/21 03/21/21 03/21/21 01:52 01:57 02:02 Temperature Pulse Rate 86 76 68 Respiratory Rate Blood Pressure O2 Sat by Pulse 99 99 98 Oximetry 03/21/21 03/21/21 03/21/21 02:07 02:12 02:17 Temperature Pulse Rate 71 70 77 Respiratory Rate Blood Pressure O2 Sat by Pulse 97 97 98 Oximetry 03/21/21 03/21/21 03/21/21 02:22 02:27 02:32 Temperature Pulse Rate 73 73 76 Respiratory Rate Blood Pressure O2 Sat by Pulse 98 98 98 Oximetry 03/21/21 03/21/21 03/21/21 02:37 02:42 02:47 Temperature Pulse Rate 77 75 80 Respiratory Rate Blood Pressure O2 Sat by Pulse 97 97 98 Oximetry 03/21/21 03/21/21 03/21/21 02:52 02:59 03:04 Temperature Pulse Rate 77 94 H 76 Respiratory Rate Blood Pressure O2 Sat by Pulse 98 98 98 Oximetry 03/21/21 03/21/21 03/21/21 03:09 03:14 03:19 Temperature Pulse Rate 78 70 74 Respiratory Rate Blood Pressure O2 Sat by Pulse 98 97 97 Oximetry 03/21/21 03/21/21 03/21/21 03:24 03:29 03:34 Temperature Pulse Rate 76 77 79 Respiratory Rate Blood Pressure O2 Sat by Pulse 97 98 97 Oximetry 03/21/21 03/21/21 03/21/21 03:39 03:44 03:49 Temperature Pulse Rate 81 84 81 Respiratory Rate Blood Pressure O2 Sat by Pulse 98 98 97 Oximetry 03/21/21 03/21/21 03/21/21 03:54 03:59 04:01 Temperature Pulse Rate 82 94 H 103 H Respiratory Rate Blood Pressure O2 Sat by Pulse 97 97 93 Oximetry 03/21/21 03/21/21 03/21/21 04:04 04:11 04:16 Temperature 97.8 F Pulse Rate 95 H 87 81 Respiratory 20 Rate Blood Pressure O2 Sat by Pulse 98 97 99 Oximetry 03/21/21 03/21/21 03/21/21 04:21 04:26 04:31 Temperature Pulse Rate 66 71 75 Respiratory Rate Blood Pressure O2 Sat by Pulse 98 99 99 Oximetry 03/21/21 03/21/21 03/21/21 04:36 04:41 04:46 Temperature Pulse Rate 77 75 72 Respiratory Rate Blood Pressure O2 Sat by Pulse 98 98 99 Oximetry 03/21/21 03/21/21 03/21/21 04:51 04:56 05:01 Temperature Pulse Rate 70 86 82 Respiratory Rate Blood Pressure O2 Sat by Pulse 98 98 100 Oximetry 03/21/21 03/21/21 03/21/21 05:06 05:11 05:15 Temperature Pulse Rate 79 76 75 Respiratory Rate Blood Pressure 100/58 O2 Sat by Pulse 98 98 Oximetry 03/21/21 03/21/21 03/21/21 05:16 05:21 05:26 Temperature Pulse Rate 80 81 78 Respiratory Rate Blood Pressure O2 Sat by Pulse 98 97 98 Oximetry 03/21/21 03/21/21 03/21/21 05:31 05:36 05:41 Temperature Pulse Rate 76 78 80 Respiratory Rate Blood Pressure O2 Sat by Pulse 97 97 98 Oximetry 03/21/21 03/21/21 03/21/21 05:46 05:51 06:00 Temperature Pulse Rate 79 79 92 H Respiratory Rate Blood Pressure O2 Sat by Pulse 98 97 98 Oximetry 03/21/21 03/21/21 03/21/21 06:03 06:05 06:10 Temperature Pulse Rate 84 80 74 Respiratory Rate Blood Pressure O2 Sat by Pulse 92 97 97 Oximetry 03/21/21 03/21/21 03/21/21 06:15 06:20 06:25 Temperature Pulse Rate 73 71 89 Respiratory Rate Blood Pressure O2 Sat by Pulse 97 98 98 Oximetry 03/21/21 03/21/21 03/21/21 06:30 06:35 06:47 Temperature Pulse Rate 68 72 74 Respiratory Rate Blood Pressure O2 Sat by Pulse 99 99 99 Oximetry 03/21/21 03/21/21 03/21/21 06:52 06:57 07:02 Temperature Pulse Rate 68 67 64 Respiratory Rate Blood Pressure O2 Sat by Pulse 100 99 99 Oximetry 03/21/21 03/21/21 03/21/21 07:07 07:12 07:15 Temperature 98.1 F Pulse Rate 65 73 Respiratory 18 Rate Blood Pressure O2 Sat by Pulse 98 98 Oximetry 03/21/21 03/21/21 03/21/21 07:17 07:22 07:30 Temperature Pulse Rate 74 73 107 H Respiratory Rate Blood Pressure O2 Sat by Pulse 99 98 99 Oximetry 03/21/21 03/21/21 03/21/21 07:35 07:40 07:45 Temperature Pulse Rate 78 69 80 Respiratory Rate Blood Pressure O2 Sat by Pulse 100 100 100 Oximetry 03/21/21 03/21/21 03/21/21 07:50 07:55 08:00 Temperature Pulse Rate 67 77 73 Respiratory Rate Blood Pressure O2 Sat by Pulse 100 99 99 Oximetry 03/21/21 03/21/21 03/21/21 08:05 08:10 08:15 Temperature Pulse Rate 78 79 91 H Respiratory Rate Blood Pressure O2 Sat by Pulse 99 99 100 Oximetry 03/21/21 03/21/21 03/21/21 08:31 08:36 08:41 Temperature Pulse Rate 94 H 77 88 Respiratory Rate Blood Pressure O2 Sat by Pulse 100 99 98 Oximetry 03/21/21 03/21/21 03/21/21 08:46 08:51 08:56 Temperature Pulse Rate 77 81 80 Respiratory Rate Blood Pressure O2 Sat by Pulse 99 99 99 Oximetry 03/21/21 03/21/21 03/21/21 09:01 09:06 09:11 Temperature Pulse Rate 81 77 78 Respiratory Rate Blood Pressure O2 Sat by Pulse 99 100 100 Oximetry 03/21/21 03/21/21 03/21/21 09:16 09:24 09:29 Temperature Pulse Rate 84 98 H 80 Respiratory Rate Blood Pressure O2 Sat by Pulse 100 100 99 Oximetry - Exam Breasts: deferred Cardiovascular: Regular rate Lungs: Clear to auscultation Abdomen: Present: normal appearance Uterus: Present: normal FHR: category 1 Uterine Contraction Monitor Mode: External Uterine Contraction Pattern: Absent Extremities: normal - Labs Labs: Abnormal Labs 03/19/21 17:23 WBC 13.6 H RBC 3.34 L
[2021-03-21] MEDS: valACYclovir 500 MG TAB PO SCH (10:01)
--- NOTE | 2021-03-21 13:58 | Progress Note ---
Assessment and Plan Pt seen yesterday in the office and was noted to have an GAYLA of 5cm She was sent to [facility] for evalaution to r/o ROM . ROM test was negative A: IUP at 35 0/7 weeks gestation -s/p course of steroids CHTN stable on current labetalol dose Decreased GAYLA : GAYLA 4.7cm 5/6 continuous monitoring, monitor for Cat III tracing Continue GAYLA /BPP/Doppler q 2-3 days Continued hospitalization is advised if the GAYLA remains 5cm or less , with delivery at 36 weeks If the GAYLA >5cm and testing is reassuring, she can resume twice weekly outpt a ntenatal surveillance with delivery at a later gestational age Subjective - Subjective Date of service: 03/21/21 Interval history: She has no complaints Denied cramping , bleeding , LOF Patient reports: contractions, no loss of fluid Objective - Vital Signs Vital Signs: Vital Signs - 12hr 03/21/21 03/21/21 03/21/21 01:57 02:02 02:07 Temperature Pulse Rate 76 68 71 Respiratory Rate Blood Pressure O2 Sat by Pulse 99 98 97 Oximetry 03/21/21 03/21/21 03/21/21 02:12 02:17 02:22 Temperature Pulse Rate 70 77 73 Respiratory Rate Blood Pressure O2 Sat by Pulse 97 98 98 Oximetry 03/21/21 03/21/21 03/21/21 02:27 02:32 02:37 Temperature Pulse Rate 73 76 77 Respiratory Rate Blood Pressure O2 Sat by Pulse 98 98 97 Oximetry 03/21/21 03/21/21 03/21/21 02:42 02:47 02:52 Temperature Pulse Rate 75 80 77 Respiratory Rate Blood Pressure O2 Sat by Pulse 97 98 98 Oximetry 03/21/21 03/21/21 03/21/21 02:59 03:04 03:09 Temperature Pulse Rate 94 H 76 78 Respiratory Rate Blood Pressure O2 Sat by Pulse 98 98 98 Oximetry 03/21/21 03/21/21 03/21/21 03:14 03:19 03:24 Temperature Pulse Rate 70 74 76 Respiratory Rate Blood Pressure O2 Sat by Pulse 97 97 97 Oximetry 03/21/21 03/21/21 03/21/21 03:29 03:34 03:39 Temperature Pulse Rate 77 79 81 Respiratory Rate Blood Pressure O2 Sat by Pulse 98 97 98 Oximetry 03/21/21 03/21/21 03/21/21 03:44 03:49 03:54 Temperature Pulse Rate 84 81 82 Respiratory Rate Blood Pressure O2 Sat by Pulse 98 97 97 Oximetry 03/21/21 03/21/21 03/21/21 03:59 04:01 04:04 Temperature Pulse Rate 94 H 103 H 95 H Respiratory Rate Blood Pressure O2 Sat by Pulse 97 93 98 Oximetry 03/21/21 03/21/21 03/21/21 04:11 04:16 04:21 Temperature 97.8 F Pulse Rate 87 81 66 Respiratory 20 Rate Blood Pressure O2 Sat by Pulse 97 99 98 Oximetry 03/21/21 03/21/21 03/21/21 04:26 04:31 04:36 Temperature Pulse Rate 71 75 77 Respiratory Rate Blood Pressure O2 Sat by Pulse 99 99 98 Oximetry 03/21/21 03/21/21 03/21/21 04:41 04:46 04:51 Temperature Pulse Rate 75 72 70 Respiratory Rate Blood Pressure O2 Sat by Pulse 98 99 98 Oximetry 03/21/21 03/21/21 03/21/21 04:56 05:01 05:06 Temperature Pulse Rate 86 82 79 Respiratory Rate Blood Pressure O2 Sat by Pulse 98 100 98 Oximetry 03/21/21 03/21/21 03/21/21 05:11 05:15 05:16 Temperature Pulse Rate 76 75 80 Respiratory Rate Blood Pressure 100/58 O2 Sat by Pulse 98 98 Oximetry 03/21/21 03/21/21 03/21/21 05:21 05:26 05:31 Temperature Pulse Rate 81 78 76 Respiratory Rate Blood Pressure O2 Sat by Pulse 97 98 97 Oximetry 03/21/21 03/21/21 03/21/21 05:36 05:41 05:46 Temperature Pulse Rate 78 80 79 Respiratory Rate Blood Pressure O2 Sat by Pulse 97 98 98 Oximetry 03/21/21 03/21/21 03/21/21 05:51 06:00 06:03 Temperature Pulse Rate 79 92 H 84 Respiratory Rate Blood Pressure O2 Sat by Pulse 97 98 92 Oximetry 03/21/21 03/21/21 03/21/21 06:05 06:10 06:15 Temperature Pulse Rate 80 74 73 Respiratory Rate Blood Pressure O2 Sat by Pulse 97 97 97 Oximetry 03/21/21 03/21/21 03/21/21 06:20 06:25 06:30 Temperature Pulse Rate 71 89 68 Respiratory Rate Blood Pressure O2 Sat by Pulse 98 98 99 Oximetry 03/21/21 03/21/21 03/21/21 06:35 06:47 06:52 Temperature Pulse Rate 72 74 68 Respiratory Rate Blood Pressure O2 Sat by Pulse 99 99 100 Oximetry 03/21/21 03/21/21 03/21/21 06:57 07:02 07:07 Temperature Pulse Rate 67 64 65 Respiratory Rate Blood Pressure O2 Sat by Pulse 99 99 98 Oximetry 03/21/21 03/21/21 03/21/21 07:12 07:15 07:17 Temperature 98.1 F Pulse Rate 73 74 Respiratory 18 Rate Blood Pressure O2 Sat by Pulse 98 99 Oximetry 03/21/21 03/21/21 03/21/21 07:22 07:30 07:35 Temperature Pulse Rate 73 107 H 78 Respiratory Rate Blood Pressure O2 Sat by Pulse 98 99 100 Oximetry 03/21/21 03/21/21 03/21/21 07:40 07:45 07:50 Temperature Pulse Rate 69 80 67 Respiratory Rate Blood Pressure O2 Sat by Pulse 100 100 100 Oximetry 03/21/21 03/21/21 03/21/21 07:55 08:00 08:05 Temperature Pulse Rate 77 73 78 Respiratory Rate Blood Pressure O2 Sat by Pulse 99 99 99 Oximetry 03/21/21 03/21/21 03/21/21 08:10 08:15 08:31 Temperature Pulse Rate 79 91 H 94 H Respiratory Rate Blood Pressure O2 Sat by Pulse 99 100 100 Oximetry 03/21/21 03/21/21 03/21/21 08:36 08:41 08:46 Temperature Pulse Rate 77 88 77 Respiratory Rate Blood Pressure O2 Sat by Pulse 99 98 99 Oximetry 03/21/21 03/21/21 03/21/21 08:51 08:56 09:01 Temperature Pulse Rate 81 80 81 Respiratory Rate Blood Pressure O2 Sat by Pulse 99 99 99 Oximetry 03/21/21 03/21/21 03/21/21 09:06 09:11 09:16 Temperature Pulse Rate 77 78 84 Respiratory Rate Blood Pressure O2 Sat by Pulse 100 100 100 Oximetry 03/21/21 03/21/21 03/21/21 09:24 09:29 09:34 Temperature Pulse Rate 98 H 80 79 Respiratory Rate Blood Pressure O2 Sat by Pulse 100 99 99 Oximetry 03/21/21 03/21/21 03/21/21 09:39 09:44 09:49 Temperature Pulse Rate 87 72 76 Respiratory Rate Blood Pressure O2 Sat by Pulse 98 98 98 Oximetry 03/21/21 03/21/21 03/21/21 09:54 09:59 10:00 Temperature Pulse Rate 92 H 75 74 Respiratory Rate Blood Pressure 109/61 O2 Sat by Pulse 99 99 Oximetry 03/21/21 03/21/21 03/21/21 10:01 10:04 10:14 Temperature Pulse Rate 74 77 88 Respiratory Rate Blood Pressure 109/61 O2 Sat by Pulse 100 100 Oximetry 03/21/21 03/21/21 03/21/21 10:19 10:24 10:29 Temperature Pulse Rate 78 78 81 Respiratory Rate Blood Pressure O2 Sat by Pulse 100 100 100 Oximetry 03/21/21 03/21/21 03/21/21 10:34 10:39 10:44 Temperature Pulse Rate 89 79 76 Respiratory Rate Blood Pressure O2 Sat by Pulse 100 100 100 Oximetry 03/21/21 03/21/21 03/21/21 10:49 11:01 11:06 Temperature Pulse Rate 75 57 L 91 H Respiratory Rate Blood Pressure O2 Sat by Pulse 99 100 100 Oximetry 03/21/21 03/21/21 03/21/21 11:11 11:16 11:21 Temperature Pulse Rate 79 85 79 Respiratory Rate Blood Pressure O2 Sat by Pulse 99 100 99 Oximetry 03/21/21 03/21/21 03/21/21 11:26 11:31 11:36 Temperature Pulse Rate 75 77 75 Respiratory Rate Blood Pressure O2 Sat by Pulse 97 99 99 Oximetry 03/21/21 03/21/21 03/21/21 11:41 11:46 11:51 Temperature Pulse Rate 77 76 74 Respiratory Rate Blood Pressure O2 Sat by Pulse 100 99 100 Oximetry 03/21/21 03/21/21 03/21/21 11:56 12:00 12:04 Temperature 98.1 F Pulse Rate 75 65 Respiratory 16 Rate Blood Pressure O2 Sat by Pulse 100 99 Oximetry 03/21/21 03/21/21 03/21/21 12:09 12:14 12:19 Temperature Pulse Rate 73 84 73 Respiratory Rate Blood Pressure O2 Sat by Pulse 99 99 100 Oximetry 03/21/21 03/21/2103/21/21 12:24 12:29 12:34 Temperature Pulse Rate 94 H 74 76 Respiratory Rate Blood Pressure O2 Sat by Pulse 100 99 99 Oximetry 03/21/21 03/21/21 03/21/21 12:39 12:44 12:52 Temperature Pulse Rate 74 73 101 H Respiratory Rate Blood Pressure O2 Sat by Pulse 99 99 99 Oximetry 03/21/21 03/21/21 03/21/21 12:57 13:02 13:07 Temperature Pulse Rate 82 66 64 Respiratory Rate Blood Pressure O2 Sat by Pulse 100 99 100 Oximetry 03/21/21 03/21/21 03/21/21 13:12 13:17 13:22 Temperature Pulse Rate 69 72 76 Respiratory Rate Blood Pressure O2 Sat by Pulse 99 99 99 Oximetry 03/21/21 03/21/21 03/21/21 13:27 13:32 13:38 Temperature Pulse Rate 71 78 Respiratory Rate Blood Pressure O2 Sat by Pulse 100 99 99 Oximetry 03/21/21 03/21/21 03/21/21 13:43 13:48 13:53 Temperature Pulse Rate 80 66 87 Respiratory Rate Blood Pressure O2 Sat by Pulse 100 100 100 Oximetry - Exam Narrative Exam: NAD laying in bed FHR: category 1 Uterine Contraction Pattern: Absent Extremities: normal - Labs Labs: Abnormal Labs 03/19/21 17:23 WBC 13.6 H RBC 3.34 L
[2021-03-22] MEDS: valACYclovir 500 MG TAB PO SCH (10:17)
--- NOTE | 2021-03-22 11:06 | Ultrasound Report ---
ULTRASOUND OBSTETRIC LIMITED ULTRASOUND BIOPHYSICAL PROFILE INDICATION / CLINICAL INFORMATION: oligohydramnios. Clinical Gestational Age (GA): 35.1 weeks.days COMPARISON: 03/19/2021 FINDINGS: BREATHING MOVEMENT = 2 GROSS BODY MOVEMENT = 2 TONE = 2 QUALITATIVE AMNIOTIC FLUID VOLUME = 0 TOTAL BIOPHYSICAL SCORE = 8/8 HEART RATE (beats per minute): 143 AMNIOTIC FLUID INDEX (cm) = 3.9 (normal = 7-24 cm) PRESENTATION: Cephalic. ADDITIONAL FINDINGS: None. IMPRESSION: 1. Biophysical Score = 6/8 2. Oligohydramnios, similar when compared to the prior examination. Signer Name: Yoan Mercado MD Signed: 03/22/2021 11:01 AM Workstation Name: [id number]
--- NOTE | 2021-03-22 11:09 | Progress Note ---
Assessment and Plan -continuous IV fluids -continuous monitoring - Patient Problems (1) Oligohydramnios antepartum Current Visit: Yes Status: Acute Plan to address problem: -continuous fluids -repeat BPP this AM, persistently low fluid -s/p Beta x2 -IOL at 36wks PNC per [facility] reviewed on chart. O+/Liz/HIV-HepB neg/RPRNR/OGTTelevated- 3OGTT neg -GBS negative (2) Chronic hypertension affecting Current Visit: Yes Status: Acute Plan to address problem: labetalol 100 q d -monitor for s/s of superimposed preeclampsia (3) Advanced maternal age during Current Visit: Yes Status: Acute (4) Herpes infection in Current Visit: Yes Status: Acute (5) Glucose intolerance Current Visit: Yes Status: Acute Subjective - Subjective Date of service: 03/22/21 Principal diagnosis: Oligohydramnios Interval history: 35yo @ 35w1d presents as admit from [facility] evaluation for oligohydramnios with plan for inpatient monitoring and delivery if findings persist. Evaluation secondary to advanced maternal age and chronic hypertension. No new complaints. Patient reports: new complaints, movement normal, contractions, no loss of fluid Objective - Vital Signs Vital Signs: Vital Signs - 12hr 03/21/21 03/21/21 03/21/21 23:10 23:15 23:20 Temperature Pulse Rate 68 69 70 Respiratory Rate Blood Pressure Blood Pressure [Left] O2 Sat by Pulse 100 98 98 Oximetry 03/21/21 03/21/21 03/21/21 23:25 23:30 23:35 Temperature Pulse Rate 69 72 69 Respiratory Rate Blood Pressure Blood Pressure [Left] O2 Sat by Pulse 97 98 98 Oximetry 03/21/21 03/21/21 03/21/21 23:41 23:46 23:51 Temperature Pulse Rate 96 H 86 76 Respiratory Rate Blood Pressure Blood Pressure [Left] O2 Sat by Pulse 99 100 100 Oximetry 03/21/21 03/22/21 03/22/21 23:56 00:01 00:06 Temperature Pulse Rate 77 75 80 Respiratory Rate Blood Pressure Blood Pressure [Left] O2 Sat by Pulse 99 97 97 Oximetry 03/22/21 03/22/21 03/22/21 00:11 00:16 00:21 Temperature Pulse Rate 85 86 82 Respiratory Rate Blood Pressure Blood Pressure [Left] O2 Sat by Pulse 98 99 100 Oximetry 03/22/21 03/22/21 03/22/21 00:26 00:31 00:36 Temperature Pulse Rate 89 93 H 82 Respiratory Rate Blood Pressure Blood Pressure [Left] O2 Sat by Pulse 99 100 100 Oximetry 03/22/21 03/22/21 03/22/21 00:41 00:46 00:56 Temperature Pulse Rate 74 81 96 H Respiratory Rate Blood Pressure Blood Pressure [Left] O2 Sat by Pulse 99 99 100 Oximetry 03/22/21 03/22/21 03/22/21 01:01 01:06 01:11 Temperature Pulse Rate 66 69 76 Respiratory Rate Blood Pressure Blood Pressure [Left] O2 Sat by Pulse 97 97 97 Oximetry 03/22/21 03/22/21 03/22/21 01:16 01:21 01:28 Temperature Pulse Rate 73 75 97 H Respiratory Rate Blood Pressure Blood Pressure [Left] O2 Sat by Pulse 98 97 99 Oximetry 03/22/21 03/22/21 03/22/21 01:33 01:38 01:43 Temperature Pulse Rate 73 77 76 Respiratory Rate Blood Pressure Blood Pressure [Left] O2 Sat by Pulse 99 98 99 Oximetry 03/22/21 03/22/21 03/22/21 01:48 01:53 01:58 Temperature Pulse Rate 75 78 77 Respiratory Rate Blood Pressure Blood Pressure [Left] O2 Sat by Pulse 99 99 99 Oximetry 03/22/21 03/22/21 03/22/21 02:03 02:08 02:13 Temperature Pulse Rate 81 76 78 Respiratory Rate Blood Pressure Blood Pressure [Left] O2 Sat by Pulse 99 98 99 Oximetry 03/22/21 03/22/21 03/22/21 02:18 02:26 02:31 Temperature Pulse Rate 73 97 H 73 Respiratory Rate Blood Pressure Blood Pressure [Left] O2 Sat by Pulse 97 98 99 Oximetry 03/22/21 03/22/21 03/22/21 02:36 02:41 02:46 Temperature Pulse Rate 68 77 78 Respiratory Rate Blood Pressure Blood Pressure [Left] O2 Sat by Pulse 98 98 98 Oximetry 03/22/21 03/22/21 03/22/21 02:51 02:56 03:01 Temperature Pulse Rate 73 73 82 Respiratory Rate Blood Pressure Blood Pressure [Left] O2 Sat by Pulse 100 100 100 Oximetry 03/22/21 03/22/2121 03:06 03:10 03:11 Temperature Pulse Rate 78 95 H 77 Respiratory Rate Blood Pressure Blood Pressure [Left] O2 Sat by Pulse 99 92 97 Oximetry 03/22/21 03/22/21 03/22/21 03:16 03:21 03:32 Temperature Pulse Rate 80 73 94 H Respiratory Rate Blood Pressure Blood Pressure [Left] O2 Sat by Pulse 98 99 100 Oximetry 03/22/21 03/22/21 03/22/21 03:37 03:42 03:47 Temperature Pulse Rate 66 63 66 Respiratory Rate Blood Pressure Blood Pressure [Left] O2 Sat by Pulse 98 99 98 Oximetry 03/22/21 03/22/21 03/22/21 03:52 03:57 04:02 Temperature Pulse Rate 64 69 69 Respiratory Rate Blood Pressure Blood Pressure [Left] O2 Sat by Pulse 98 98 98 Oximetry 03/22/21 03/22/21 03/22/21 04:11 04:16 04:21 Temperature Pulse Rate 77 75 73 Respiratory Rate Blood Pressure Blood Pressure [Left] O2 Sat by Pulse 99 99 98 Oximetry 03/22/21 03/22/21 03/22/21 04:26 04:31 04:36 Temperature Pulse Rate 70 77 73 Respiratory Rate Blood Pressure Blood Pressure [Left] O2 Sat by Pulse 98 98 99 Oximetry 03/22/21 03/22/21 03/22/21 04:41 04:46 04:51 Temperature Pulse Rate 75 79 74 Respiratory Rate Blood Pressure Blood Pressure [Left] O2 Sat by Pulse 98 98 98 Oximetry 03/22/21 03/22/21 03/22/21 04:56 05:01 05:06 Temperature Pulse Rate 86 94 H 83 Respiratory Rate Blood Pressure Blood Pressure [Left] O2 Sat by Pulse 94 97 99 Oximetry 03/22/21 03/22/21 03/22/21 05:11 05:16 05:21 Temperature Pulse Rate 85 76 73 Respiratory Rate Blood Pressure Blood Pressure [Left] O2 Sat by Pulse 100 98 98 Oximetry 03/22/21 03/22/21 03/22/21 05:26 05:31 05:36 Temperature Pulse Rate 74 74 78 Respiratory Rate Blood Pressure Blood Pressure [Left] O2 Sat by Pulse 99 98 99 Oximetry 03/22/21 03/22/21 03/22/21 05:41 05:46 05:51 Temperature Pulse Rate 80 71 64 Respiratory Rate Blood Pressure Blood Pressure [Left] O2 Sat by Pulse 98 98 98 Oximetry 03/22/21 03/22/21 03/22/21 05:56 06:01 06:06 Temperature Pulse Rate 64 64 68 Respiratory Rate Blood Pressure Blood Pressure [Left] O2 Sat by Pulse 97 97 97 Oximetry 03/22/21 03/22/21 03/22/21 06:11 06:20 06:25 Temperature Pulse Rate 76 92 H 70 Respiratory Rate Blood Pressure Blood Pressure [Left] O2 Sat by Pulse 97 100 98 Oximetry 03/22/21 03/22/21 03/22/21 06:30 06:35 06:40 Temperature Pulse Rate 69 69 66 Respiratory Rate Blood Pressure Blood Pressure [Left] O2 Sat by Pulse 97 97 98 Oximetry 03/22/21 03/22/21 03/22/21 06:45 06:50 06:59 Temperature Pulse Rate 71 98 H 85 Respiratory Rate Blood Pressure Blood Pressure [Left] O2 Sat by Pulse 98 97 98 Oximetry 03/22/21 03/22/21 03/22/21 07:04 07:09 07:14 Temperature Pulse Rate 79 75 76 Respiratory Rate Blood Pressure Blood Pressure [Left] O2 Sat by Pulse 100 99 99 Oximetry 03/22/21 03/22/21 03/22/21 07:19 07:24 07:29 Temperature Pulse Rate 89 77 73 Respiratory Rate Blood Pressure Blood Pressure [Left] O2 Sat by Pulse 99 99 99 Oximetry 03/22/21 03/22/21 03/22/21 07:45 07:48 07:50 Temperature 98.4 F Pulse Rate 90 68 70 Respiratory 16 Rate Blood Pressure 118/68 Blood Pressure 118/68 [Left] O2 Sat by Pulse 98 98 98 Oximetry 03/22/21 03/22/21 03/22/21 07:55 08:00 08:05 Temperature Pulse Rate 75 73 72 Respiratory Rate Blood Pressure Blood Pressure [Left] O2 Sat by Pulse 99 98 98 Oximetry 03/22/21 03/22/21 03/22/21 08:10 08:15 08:20 Temperature Pulse Rate 73 88 80 Respiratory Rate Blood Pressure Blood Pressure [Left] O2 Sat by Pulse 98 98 99 Oximetry 03/22/21 03/22/21 03/22/21 09:23 09:28 09:33 Temperature Pulse Rate 83 79 85 Respiratory Rate Blood Pressure Blood Pressure [Left] O2 Sat by Pulse 100 99 99 Oximetry 03/22/21 03/22/21 03/22/21 09:38 09:43 09:49 Temperature Pulse Rate 97 H 77 110 H Respiratory Rate Blood Pressure Blood Pressure [Left] O2 Sat by Pulse 99 99 100 Oximetry 03/22/21 03/22/21 03/22/21 09:54 09:59 10:04 Temperature Pulse Rate 83 79 78 Respiratory Rate Blood Pressure Blood Pressure [Left] O2 Sat by Pulse 98 98 98 Oximetry 03/22/21 03/22/21 03/22/21 10:14 10:15 10:16 Temperature Pulse Rate 102 H 93 H 87 Respiratory Rate Blood Pressure 99/65 107/71 Blood Pressure [Left] O2 Sat by Pulse 98 Oximetry 03/22/21 03/22/21 03/22/21 10:17 10:19 10:24 Temperature Pulse Rate 87 94 H 81 Respiratory Rate Blood Pressure 107/71 Blood Pressure [Left] O2 Sat by Pulse 99 99 Oximetry 03/22/21 03/22/21 03/22/21 10:29 10:34 10:39 Temperature Pulse Rate 84 79 77 Respiratory Rate Blood Pressure Blood Pressure [Left] O2 Sat by Pulse 99 97 97 Oximetry 03/22/21 03/22/21 03/22/21 10:44 10:51 10:56 Temperature Pulse Rate 75 92 H 75 Respiratory Rate Blood Pressure Blood Pressure [Left] O2 Sat by Pulse 96 98 99 Oximetry 03/22/21 03/22/21 11:01 11:06 Temperature Pulse Rate 77 75 Respiratory Rate Blood Pressure Blood Pressure [Left] O2 Sat by Pulse 98 98 Oximetry - Exam Breasts: normal Cardiovascular: Regular rate Lungs: Clear to auscultation Abdomen: Present: normal appearance Uterus: Present: normal FHR: category 1 Uterine Contraction Monitor Mode: External Uterine Contraction Pattern: Absent Extremities: normal - Labs Labs: Abnormal Labs 03/19/21 17:23 WBC 13.6 H RBC 3.34 L Laboratory Results - last 24 hr 03/21/21 09:00 Coronavirus (PCR) Negative
[2021-03-22 12:41] LABS: Hemoglobin 9.5 gm/dl (10.1-14.3); Mean Corpuscular HGB Conc 33 % (30-34); Mean Corpuscular Volume 94 fl (79-97); Platelet Count 183 K/mm3 (140-440); Red Cell Distribution Width 13.7 % (13.2-15.2)
[2021-03-22] MEDS: LACTATED RINGERS 1,000 ML IV SCH (15:39)
--- NOTE | 2021-03-23 08:25 | Progress Note ---
Assessment and Plan - Patient Problems (1) Oligohydramnios antepartum Current Visit: Yes Status: Acute Plan to address problem: continue expectant management with delivery at 36 weeks Subjective - Subjective Date of service: 03/23/21 Principal diagnosis: Oligohydramnios Interval history: 35-year-old -0-2-0 at 35+ weeks admitted for oligohydramnios. Plan is to deliver at 36 weeks. Patient denies contractions or vaginal bleeding Patient reports: movement normal, no loss of fluid Objective - Vital Signs Vital Signs: Vital Signs - 12hr 03/22/21 03/22/21 03/22/21 20:27 20:32 20:37 Temperature Pulse Rate 87 81 78 Respiratory Rate Blood Pressure Blood Pressure [Left] O2 Sat by Pulse 99 99 98 Oximetry 03/22/21 03/22/21 03/22/21 20:42 20:50 20:55 Temperature Pulse Rate 85 100 H 77 Respiratory Rate Blood Pressure Blood Pressure [Left] O2 Sat by Pulse 99 99 100 Oximetry 03/22/21 03/22/21 03/22/21 21:00 21:05 21:10 Temperature Pulse Rate 81 77 101 H Respiratory Rate Blood Pressure Blood Pressure [Left] O2 Sat by Pulse 100 99 99 Oximetry 03/22/21 03/22/21 03/22/21 21:16 21:21 21:26 Temperature Pulse Rate 95 H 89 82 Respiratory Rate Blood Pressure Blood Pressure [Left] O2 Sat by Pulse 100 99 98 Oximetry 03/22/21 03/22/21 03/22/21 21:35 21:40 21:45 Temperature Pulse Rate 98 H 83 83 Respiratory Rate Blood Pressure Blood Pressure [Left] O2 Sat by Pulse 100 99 99 Oximetry 03/22/21 03/22/21 03/22/21 21:50 21:55 22:00 Temperature Pulse Rate 75 77 78 Respiratory Rate Blood Pressure Blood Pressure [Left] O2 Sat by Pulse 98 99 98 Oximetry 03/22/21 03/22/21 03/22/21 22:05 22:12 22:17 Temperature Pulse Rate 78 110 H 81 Respiratory Rate Blood Pressure Blood Pressure [Left] O2 Sat by Pulse 99 99 99 Oximetry 03/22/21 03/22/21 03/22/21 22:22 22:27 22:32 Temperature Pulse Rate 78 79 81 Respiratory Rate Blood Pressure Blood Pressure [Left] O2 Sat by Pulse 99 99 99 Oximetry 03/22/21 03/22/21 03/22/21 22:37 22:42 22:51 Temperature Pulse Rate 78 82 90 Respiratory Rate Blood Pressure Blood Pressure [Left] O2 Sat by Pulse 99 99 99 Oximetry 03/22/21 03/22/21 03/22/21 22:56 23:01 23:06 Temperature Pulse Rate 83 82 80 Respiratory Rate Blood Pressure Blood Pressure [Left] O2 Sat by Pulse 98 98 98 Oximetry 03/22/21 03/22/21 03/22/21 23:11 23:16 23:25 Temperature Pulse Rate 81 79 85 Respiratory Rate Blood Pressure Blood Pressure [Left] O2 Sat by Pulse 99 98 99 Oximetry 03/22/21 03/22/21 03/22/21 23:30 23:35 23:40 Temperature Pulse Rate 80 92 H 74 Respiratory Rate Blood Pressure Blood Pressure [Left] O2 Sat by Pulse 98 98 97 Oximetry 03/22/21 03/22/21 03/22/21 23:48 23:53 23:58 Temperature Pulse Rate 111 H 81 82 Respiratory Rate Blood Pressure Blood Pressure [Left] O2 Sat by Pulse 98 98 97 Oximetry 03/23/21 03/23/21 03/23/21 00:03 00:08 00:13 Temperature Pulse Rate 80 83 78 Respiratory Rate Blood Pressure Blood Pressure [Left] O2 Sat by Pulse 97 98 98 Oximetry 03/23/21 03/23/21 03/23/21 00:20 00:25 00:30 Temperature Pulse Rate 99 H 75 76 Respiratory Rate Blood Pressure Blood Pressure [Left] O2 Sat by Pulse 100 97 98 Oximetry 03/23/21 03/23/21 03/23/21 00:35 00:40 00:45 Temperature Pulse Rate 76 80 79 Respiratory Rate Blood Pressure Blood Pressure [Left] O2 Sat by Pulse 97 97 98 Oximetry 03/23/21 03/23/21 03/23/21 00:50 00:51 00:55 Temperature Pulse Rate 85 86 96 H Respiratory Rate Blood Pressure Blood Pressure [Left] O2 Sat by Pulse 98 91 96 Oximetry 03/23/21 03/23/21 03/23/21 00:58 01:00 01:05 Temperature Pulse Rate 94 H 82 65 Respiratory Rate Blood Pressure Blood Pressure [Left] O2 Sat by Pulse 90 98 99 Oximetry 03/23/21 03/23/21 03/23/21 01:10 01:15 01:20 Temperature Pulse Rate 75 74 75 Respiratory Rate Blood Pressure Blood Pressure [Left] O2 Sat by Pulse 98 97 97 Oximetry 03/23/21 03/23/21 03/23/21 01:25 01:30 01:35 Temperature Pulse Rate 75 76 75 Respiratory Rate Blood Pressure Blood Pressure [Left] O2 Sat by Pulse 97 97 97 Oximetry 03/23/21 03/23/21 03/23/21 01:40 01:45 01:50 Temperature Pulse Rate 78 98 H 95 H Respiratory Rate Blood Pressure Blood Pressure [Left] O2 Sat by Pulse 97 99 98 Oximetry 03/23/21 03/23/21 03/23/21 01:52 01:55 02:00 Temperature 98.1 F Pulse Rate 77 67 66 Respiratory Rate Blood Pressure 108/57 Blood Pressure [Left] O2 Sat by Pulse 97 97 Oximetry 03/23/21 03/23/21 03/23/21 02:05 02:10 02:15 Temperature Pulse Rate 70 71 69 Respiratory Rate Blood Pressure Blood Pressure [Left] O2 Sat by Pulse 97 97 97 Oximetry 03/23/21 03/23/21 03/23/21 02:20 02:22 02:25 Temperature Pulse Rate 75 76 85 Respiratory Rate Blood Pressure Blood Pressure [Left] O2 Sat by Pulse 97 93 88 Oximetry 03/23/21 03/23/21 03/23/21 02:28 02:30 02:35 Temperature Pulse Rate 91 H 84 86 Respiratory Rate Blood Pressure Blood Pressure [Left] O2 Sat by Pulse 93 96 96 Oximetry 03/23/21 03/23/21 03/23/21 02:36 02:40 02:45 Temperature Pulse Rate 94 H 99 H 73 Respiratory Rate Blood Pressure Blood Pressure [Left] O2 Sat by Pulse 94 98 98 Oximetry 03/23/21 03/23/21 03/23/21 02:50 02:55 03:00 Temperature Pulse Rate 70 74 74 Respiratory Rate Blood Pressure Blood Pressure [Left] O2 Sat by Pulse 98 98 98 Oximetry 03/23/21 03/23/21 03/23/21 03:05 03:10 03:15 Temperature Pulse Rate 78 74 78 Respiratory Rate Blood Pressure Blood Pressure [Left] O2 Sat by Pulse 98 98 98 Oximetry 03/23/21 03/23/21 03/23/21 03:20 03:25 03:32 Temperature Pulse Rate 78 76 85 Respiratory Rate Blood Pressure Blood Pressure [Left] O2 Sat by Pulse 98 98 98 Oximetry 03/23/21 03/23/21 03/23/21 03:37 03:42 03:47 Temperature Pulse Rate 68 67 71 Respiratory Rate Blood Pressure Blood Pressure [Left] O2 Sat by Pulse 98 97 97 Oximetry 03/23/21 03/23/21 03/23/21 03:52 03:57 04:02 Temperature Pulse Rate 73 72 74 Respiratory Rate Blood Pressure Blood Pressure [Left] O2 Sat by Pulse 97 98 97 Oximetry 03/23/21 03/23/21 03/23/21 04:07 04:09 04:12 Temperature Pulse Rate 72 83 89 Respiratory Rate Blood Pressure Blood Pressure [Left] O2 Sat by Pulse 97 94 97 Oximetry 03/23/21 03/23/21 03/23/21 04:17 04:22 04:27 Temperature Pulse Rate 101 H 91 H 86 Respiratory Rate Blood Pressure Blood Pressure [Left] O2 Sat by Pulse 95 98 99 Oximetry 03/23/21 03/23/21 03/23/21 04:32 04:37 04:42 Temperature Pulse Rate 73 68 75 Respiratory Rate Blood Pressure Blood Pressure [Left] O2 Sat by Pulse 99 98 98 Oximetry 03/23/21 03/23/21 03/23/21 04:47 04:52 04:57 Temperature Pulse Rate 74 76 76 Respiratory Rate Blood Pressure Blood Pressure [Left] O2 Sat by Pulse 98 98 98 Oximetry 03/23/21 03/23/21 03/23/21 05:02 05:09 05:14 Temperature Pulse Rate 80 93 H 76 Respiratory Rate Blood Pressure Blood Pressure [Left] O2 Sat by Pulse 98 99 98 Oximetry 03/23/21 03/23/21 03/23/21 05:19 05:24 05:29 Temperature Pulse Rate 73 72 71 Respiratory Rate Blood Pressure Blood Pressure [Left] O2 Sat by Pulse 98 98 98 Oximetry 03/23/21 03/23/21 03/23/21 05:34 05:39 05:43 Temperature Pulse Rate 69 75 84 Respiratory Rate Blood Pressure Blood Pressure [Left] O2 Sat by Pulse 97 97 89 Oximetry 03/23/21 03/23/21 03/23/21 05:44 05:49 05:54 Temperature Pulse Rate 79 80 77 Respiratory Rate Blood Pressure Blood Pressure [Left] O2 Sat by Pulse 97 97 98 Oximetry 03/23/21 03/23/21 03/23/21 06:01 06:05 06:11 Temperature Pulse Rate 103 H 82 75 Respiratory Rate Blood Pressure Blood Pressure [Left] O2 Sat by Pulse 99 98 98 Oximetry 03/23/21 03/23/21 03/23/21 06:15 06:20 06:25 Temperature Pulse Rate 78 76 80 Respiratory Rate Blood Pressure Blood Pressure [Left] O2 Sat by Pulse 98 99 99 Oximetry 03/23/21 03/23/21 03/23/21 06:30 06:35 06:41 Temperature Pulse Rate 75 70 84 Respiratory Rate Blood Pressure Blood Pressure [Left] O2 Sat by Pulse 98 98 98 Oximetry 03/23/21 03/23/21 03/23/21 06:52 06:58 07:02 Temperature Pulse Rate 80 82 71 Respiratory Rate Blood Pressure Blood Pressure [Left] O2 Sat by Pulse 98 99 99 Oximetry 03/23/21 03/23/21 03/23/21 07:07 07:13 07:17 Temperature Pulse Rate 72 74 73 Respiratory Rate Blood Pressure Blood Pressure [Left] O2 Sat by Pulse 99 98 99 Oximetry 03/23/21 03/23/21 03/23/21 07:22 07:25 07:26 Temperature 98.4 F Pulse Rate 77 81 75 Respiratory 18 Rate Blood Pressure 117/67 Blood Pressure 117/67 [Left] O2 Sat by Pulse 99 99 Oximetry 03/23/21 03/23/21 03/23/21 07:27 07:32 07:41 Temperature Pulse Rate 74 81 91 H Respiratory Rate Blood Pressure Blood Pressure [Left] O2 Sat by Pulse 99 99 98 Oximetry 03/23/21 03/23/21 03/23/21 07:46 07:51 07:57 Temperature Pulse Rate 74 82 92 H Respiratory Rate Blood Pressure Blood Pressure [Left] O2 Sat by Pulse 99 100 99 Oximetry 03/23/21 03/23/21 03/23/21 08:01 08:07 08:12 Temperature Pulse Rate 77 75 84 Respiratory Rate Blood Pressure Blood Pressure [Left] O2 Sat by Pulse 98 98 100 Oximetry 03/23/21 08:20 Temperature Pulse Rate 88 Respiratory Rate Blood Pressure Blood Pressure [Left] O2 Sat by Pulse 97 Oximetry - Labs Labs: Abnormal Labs 03/19/21 03/22/21 17:23 11:51 WBC 13.6 H RBC 3.34 L 3.10 L Hgb 9.5 L Hct 29.0 L Laboratory Results - last 24 hr 03/22/21 03/22/21 11:51 11:53 WBC 10.1 RBC 3.10 L Hgb 9.5 L Hct 29.0 L MCV 94 MCH 31 MCHC 33 RDW 13.7 Plt Count 183 Blood Type O POSITIVE Antibody Screen Negative
[2021-03-23] MEDS: valACYclovir 500 MG TAB PO SCH (09:52)
--- NOTE | 2021-03-23 12:34 | Progress Note ---
Assessment and Plan A: IUP at 35 2/7 weeks gestation -s/p course of steroids CHTN stable on current labetalol dose Oligohydramnios GAYLA 4.7cm 03/19 GAYLA 3.9cm on 03/22 continuous monitoring, monitor for Cat III tracing Continue GAYLA /BPP/Doppler q 2-3 days Delivery is advised at 36 weeks gestation Pt is in agreement with the plan of care Subjective - Subjective Date of service: 03/23/21 Principal diagnosis: Oligohydramnios Interval history: She has no complaints Denied cramping , bleeding , LOF Repeat GAYLA 03/22 was 3.9cm BPP 04/21 ( -2 for fluid ), NST has been Cat I Patient reports: movement normal, no loss of fluid Objective - Vital Signs Vital Signs: Vital Signs - 12hr 03/23/21 03/23/21 03/23/21 00:35 00:40 00:45 Temperature Pulse Rate 76 80 79 Respiratory Rate Blood Pressure Blood Pressure [Left] O2 Sat by Pulse 97 97 98 Oximetry 03/23/21 03/23/21 03/23/21 00:50 00:51 00:55 Temperature Pulse Rate 85 86 96 H Respiratory Rate Blood Pressure Blood Pressure [Left] O2 Sat by Pulse 98 91 96 Oximetry 03/23/21 03/23/21 03/23/21 00:58 01:00 01:05 Temperature Pulse Rate 94 H 82 65 Respiratory Rate Blood Pressure Blood Pressure [Left] O2 Sat by Pulse 90 98 99 Oximetry 03/23/21 03/23/21 03/23/21 01:10 01:15 01:20 Temperature Pulse Rate 75 74 75 Respiratory Rate Blood Pressure Blood Pressure [Left] O2 Sat by Pulse 98 97 97 Oximetry 03/23/21 03/23/21 03/23/21 01:25 01:30 01:35 Temperature Pulse Rate 75 76 75 Respiratory Rate Blood Pressure Blood Pressure [Left] O2 Sat by Pulse 97 97 97 Oximetry 03/23/21 03/23/21 03/23/21 01:40 01:45 01:50 Temperature Pulse Rate 78 98 H 95 H Respiratory Rate Blood Pressure Blood Pressure [Left] O2 Sat by Pulse 97 99 98 Oximetry 03/23/21 03/23/21 03/23/21 01:52 01:55 02:00 Temperature 98.1 F Pulse Rate 77 67 66 Respiratory Rate Blood Pressure 108/57 Blood Pressure [Left] O2 Sat by Pulse 97 97 Oximetry 03/23/21 03/23/21 03/23/21 02:05 02:10 02:15 Temperature Pulse Rate 70 71 69 Respiratory Rate Blood Pressure Blood Pressure [Left] O2 Sat by Pulse 97 97 97 Oximetry 03/23/21 03/23/21 03/23/21 02:20 02:22 02:25 Temperature Pulse Rate 75 76 85 Respiratory Rate Blood Pressure Blood Pressure [Left] O2 Sat by Pulse 97 93 88 Oximetry 03/23/21 03/23/21 03/23/21 02:28 02:30 02:35 Temperature Pulse Rate 91 H 84 86 Respiratory Rate Blood Pressure Blood Pressure [Left] O2 Sat by Pulse 93 96 96 Oximetry 03/23/21 03/23/21 03/23/21 02:36 02:40 02:45 Temperature Pulse Rate 94 H 99 H 73 Respiratory Rate Blood Pressure Blood Pressure [Left] O2 Sat by Pulse 94 98 98 Oximetry 03/23/21 03/23/21 03/23/21 02:50 02:55 03:00 Temperature Pulse Rate 70 74 74 Respiratory Rate Blood Pressure Blood Pressure [Left] O2 Sat by Pulse 98 98 98 Oximetry 03/23/21 03/23/21 03/23/21 03:05 03:10 03:15 Temperature Pulse Rate 78 74 78 Respiratory Rate Blood Pressure Blood Pressure [Left] O2 Sat by Pulse 98 98 98 Oximetry 03/23/21 03/23/21 03/23/21 03:20 03:25 03:32 Temperature Pulse Rate 78 76 85 Respiratory Rate Blood Pressure Blood Pressure [Left] O2 Sat by Pulse 98 98 98 Oximetry 03/23/21 03/23/21 03/23/21 03:37 03:42 03:47 Temperature Pulse Rate 68 67 71 Respiratory Rate Blood Pressure Blood Pressure [Left] O2 Sat by Pulse 98 97 97 Oximetry 03/23/21 03/23/21 03/23/21 03:52 03:57 04:02 Temperature Pulse Rate 73 72 74 Respiratory Rate Blood Pressure Blood Pressure [Left] O2 Sat by Pulse 97 98 97 Oximetry 03/23/21 03/23/21 03/23/21 04:07 04:09 04:12 Temperature Pulse Rate 72 83 89 Respiratory Rate Blood Pressure Blood Pressure [Left] O2 Sat by Pulse 97 94 97 Oximetry 03/23/21 03/23/21 03/23/21 04:17 04:22 04:27 Temperature Pulse Rate 101 H 91 H 86 Respiratory Rate Blood Pressure Blood Pressure [Left] O2 Sat by Pulse 95 98 99 Oximetry 03/23/21 03/23/21 03/23/21 04:32 04:37 04:42 Temperature Pulse Rate 73 68 75 Respiratory Rate Blood Pressure Blood Pressure [Left] O2 Sat by Pulse 99 98 98 Oximetry 03/23/21 03/23/21 03/23/21 04:47 04:52 04:57 Temperature Pulse Rate 74 76 76 Respiratory Rate Blood Pressure Blood Pressure [Left] O2 Sat by Pulse 98 98 98 Oximetry 03/23/21 03/23/21 03/23/21 05:02 05:09 05:14 Temperature Pulse Rate 80 93 H 76 Respiratory Rate Blood Pressure Blood Pressure [Left] O2 Sat by Pulse 98 99 98 Oximetry 03/23/21 03/23/21 03/23/21 05:19 05:24 05:29 Temperature Pulse Rate 73 72 71 Respiratory Rate Blood Pressure Blood Pressure [Left] O2 Sat by Pulse 98 98 98 Oximetry 03/23/21 03/23/21 03/23/21 05:34 05:39 05:43 Temperature Pulse Rate 69 75 84 Respiratory Rate Blood Pressure Blood Pressure [Left] O2 Sat by Pulse 97 97 89 Oximetry 03/23/21 03/23/21 03/23/21 05:44 05:49 05:54 Temperature Pulse Rate 79 80 77 Respiratory Rate Blood Pressure Blood Pressure [Left] O2 Sat by Pulse 97 97 98 Oximetry 03/23/21 03/23/21 03/23/21 06:01 06:05 06:11 Temperature Pulse Rate 103 H 82 75 Respiratory Rate Blood Pressure Blood Pressure [Left] O2 Sat by Pulse 99 98 98 Oximetry 03/23/21 03/23/21 03/23/21 06:15 06:20 06:25 Temperature Pulse Rate 78 76 80 Respiratory Rate Blood Pressure Blood Pressure [Left] O2 Sat by Pulse 98 99 99 Oximetry 03/23/21 03/23/21 03/23/21 06:30 06:35 06:41 Temperature Pulse Rate 75 70 84 Respiratory Rate Blood Pressure Blood Pressure [Left] O2 Sat by Pulse 98 98 98 Oximetry 03/23/21 03/23/21 03/23/21 06:52 06:58 07:02 Temperature Pulse Rate 80 82 71 Respiratory Rate Blood Pressure Blood Pressure [Left] O2 Sat by Pulse 98 99 99 Oximetry 03/23/21 03/23/21 03/23/21 07:07 07:13 07:17 Temperature Pulse Rate 72 74 73 Respiratory Rate Blood Pressure Blood Pressure [Left] O2 Sat by Pulse 99 98 99 Oximetry 03/23/21 03/23/21 03/23/21 07:22 07:25 07:26 Temperature 98.4 F Pulse Rate 77 81 75 Respiratory 18 Rate Blood Pressure 117/67 Blood Pressure 117/67 [Left] O2 Sat by Pulse 99 99 Oximetry 03/23/21 03/23/21 03/23/21 07:27 07:32 07:41 Temperature Pulse Rate 74 81 91 H Respiratory Rate Blood Pressure Blood Pressure [Left] O2 Sat by Pulse 99 99 98 Oximetry 03/23/21 03/23/21 03/23/21 07:46 07:51 07:57 Temperature Pulse Rate 74 82 92 H Respiratory Rate Blood Pressure Blood Pressure [Left] O2 Sat by Pulse 99 100 99 Oximetry 03/23/21 03/23/21 03/23/21 08:01 08:07 08:12 Temperature Pulse Rate 77 75 84 Respiratory Rate Blood Pressure Blood Pressure [Left] O2 Sat by Pulse 98 98 100 Oximetry 03/23/21 03/23/21 03/23/21 08:20 08:24 08:29 Temperature Pulse Rate 88 87 72 Respiratory Rate Blood Pressure Blood Pressure [Left] O2 Sat by Pulse 97 99 99 Oximetry 03/23/21 03/23/21 03/23/21 08:34 08:40 08:44 Temperature Pulse Rate 83 72 79 Respiratory Rate Blood Pressure Blood Pressure [Left] O2 Sat by Pulse 99 99 100 Oximetry 03/23/21 03/23/21 03/23/21 08:49 08:54 08:59 Temperature Pulse Rate 50 L 74 72 Respiratory Rate Blood Pressure Blood Pressure [Left] O2 Sat by Pulse 76 L 100 99 Oximetry 03/23/21 03/23/21 03/23/21 09:04 09:09 09:14 Temperature Pulse Rate 72 74 76 Respiratory Rate Blood Pressure Blood Pressure [Left] O2 Sat by Pulse 99 100 99 Oximetry 03/23/21 03/23/21 03/23/21 09:19 09:24 09:29 Temperature Pulse Rate 78 78 86 Respiratory Rate Blood Pressure Blood Pressure [Left] O2 Sat by Pulse 99 99 100 Oximetry 03/23/21 03/23/21 03/23/21 09:39 09:40 09:44 Temperature Pulse Rate 92 H 83 158 H Respiratory Rate Blood Pressure Blood Pressure [Left] O2 Sat by Pulse 96 87 96 Oximetry 03/23/21 03/23/21 03/23/21 09:46 09:49 09:50 Temperature Pulse Rate 82 82 Respiratory Rate Blood Pressure 114/71 114/71 Blood Pressure [Left] O2 Sat by Pulse 91 93 Oximetry 03/23/21 03/23/21 03/23/21 09:55 10:00 10:06 Temperature Pulse Rate 67 70 61 Respiratory Rate Blood Pressure Blood Pressure [Left] O2 Sat by Pulse 87 87 94 Oximetry 03/23/21 03/23/21 03/23/21 10:08 10:13 10:39 Temperature Pulse Rate 84 52 L Respiratory Rate Blood Pressure Blood Pressure [Left] O2 Sat by Pulse 88 89 88 Oximetry 03/23/21 03/23/21 03/23/21 10:42 10:46 10:52 Temperature Pulse Rate 89 80 86 Respiratory Rate Blood Pressure Blood Pressure [Left] O2 Sat by Pulse 99 99 99 Oximetry 03/23/21 03/23/21 03/23/21 10:56 11:01 11:06 Temperature Pulse Rate 81 85 83 Respiratory Rate Blood Pressure Blood Pressure [Left] O2 Sat by Pulse 99 99 99 Oximetry 03/23/21 03/23/21 03/23/21 11:36 11:41 11:45 Temperature Pulse Rate 88 78 83 Respiratory Rate Blood Pressure Blood Pressure [Left] O2 Sat by Pulse 98 99 100 Oximetry 03/23/21 03/23/21 03/23/21 11:50 11:55 12:04 Temperature Pulse Rate 89 79 105 H Respiratory Rate Blood Pressure Blood Pressure [Left] O2 Sat by Pulse 98 99 100 Oximetry 03/23/21 03/23/21 03/23/21 12:09 12:14 12:20 Temperature Pulse Rate 74 77 73 Respiratory Rate Blood Pressure Blood Pressure [Left] O2 Sat by Pulse 99 99 98 Oximetry 03/23/21 12:28 Temperature Pulse Rate 95 H Respiratory Rate Blood Pressure Blood Pressure [Left] O2 Sat by Pulse 99 Oximetry - Exam Narrative Exam: laying in bed NAD Abdomen: Present: normal appearance FHR: category 1 Uterine Contraction Pattern: Absent Extremities: normal - Labs Labs: Abnormal Labs 03/19/21 03/22/21 17:23 11:51 WBC 13.6 H RBC 3.34 L 3.10 L Hgb 9.5 L Hct 29.0 L Laboratory Results - last 24 hr 03/22/21 03/22/21 11:51 11:53 WBC 10.1 RBC 3.10 L Hgb 9.5 L Hct 29.0 L MCV 94 MCH 31 MCHC 33 RDW 13.7 Plt Count 183 Blood Type O POSITIVE Antibody Screen Negative - Results US- obstetric: report reviewed (03/22 US reviewed)
[2021-03-23] MEDS: LACTATED RINGERS 1,000 ML IV SCH ×2 (13:15→21:39)
[2021-03-24] MEDS: valACYclovir 500 MG TAB PO SCH (10:36)
--- NOTE | 2021-03-24 12:00 | Ultrasound Report ---
US OB BPP WO NON-STRESS US OB LIMITED US OB VELOCIMETRY UMBILCAL ART INDICATION / CLINICAL INFORMATION: Oligohydramnios. COMPARISON: Ultrasound 2 days prior. FINDINGS: Biophysical profile: breathing movement = 2 Gross body movement = 2 tone = 2 Qualitative amniotic fluid volume = 0 Amniotic fluid index is 2.3 cm. (Previously 3.9) Presentation is Cephalic. heart rate is 146 beats per minute. S/D ratio average: 2.33 Resistive index: 0.6 Umbilical artery waveform is normal. IMPRESSION: 1. biophysical profile = 04/21 2. Persistent oligohydramnios, as above. 3. Umbilical artery waveform is normal with normal S/D ratio and resistive index. Signer Name: Dante Cobb MD Signed: 03/24/2021 11:55 AM Workstation Name: [id number]
[2021-03-24] MEDS: LACTATED RINGERS 1,000 ML IV SCH ×2 (12:11→20:16)
--- NOTE | 2021-03-24 13:06 | Progress Note ---
Assessment and Plan A: IUP at 35 3/7 weeks gestation -s/p course of steroids CHTN stable on current labetalol dose Oligohydramnios 03/19/21 : GAYLA 4.7cm 03/22 : GAYLA 3.9cm 03/24 GAYLA 2.3cm , normal dopplers BPP 6/8 - cat I tracing final BPP 8/10 1. Continuous monitoring, monitor for Cat III tracing Proceed with delivery if tracing becomes non reassuring ( Cat III), BPP 6/10 or less , AEDF or RF on UA dopplers 2. Continue GAYLA /BPP/Doppler q 2-3 days 3 Delivery is advised at 36 weeks gestation - sooner if indicated ( see above) She is tired of being hospitalized and asked about an earlier delivery We discussed delivery at 35 vs 36 weeks , potential risks associaed with prematurity, NICU admission, prolonged hospitalization. All questions were answered She would like to continue expectant management , with planned delivery at 36 0/7 weeks if the fetus remains stable , to reduce the length of NICU stay Advised immediate delivery is recommended if the status becomes non reassuring 4 Labetalol was held to reduce maternal hypotension, and potential uteroplacental insufficiency She is in agreement with the plan of care Subjective - Subjective Date of service: 03/24/21 Principal diagnosis: Oligohydramnios Interval history: She has no complaints Denied cramping , bleeding , LOF , abnl vaginal discharge Patient reports: movement normal, no loss of fluid Objective - Vital Signs Vital Signs: Vital Signs - 12hr 03/24/21 03/24/21 03/24/21 01:06 01:11 01:16 Temperature Pulse Rate 73 72 72 Respiratory Rate Blood Pressure O2 Sat by Pulse 97 97 97 Oximetry 03/24/21 03/24/21 03/24/21 01:21 01:26 01:31 Temperature Pulse Rate 73 74 78 Respiratory Rate Blood Pressure O2 Sat by Pulse 97 97 97 Oximetry 03/24/21 03/24/21 03/24/21 01:36 01:41 01:46 Temperature Pulse Rate 69 73 74 Respiratory Rate Blood Pressure O2 Sat by Pulse 97 97 97 Oximetry 03/24/21 03/24/21 03/24/21 01:51 01:56 01:59 Temperature Pulse Rate 73 73 88 Respiratory Rate Blood Pressure O2 Sat by Pulse 96 96 86 Oximetry 03/24/21 03/24/21 03/24/21 02:01 02:06 02:11 Temperature Pulse Rate 79 104 H 62 Respiratory Rate Blood Pressure O2 Sat by Pulse 95 100 97 Oximetry 03/24/21 03/24/21 03/24/21 02:16 02:21 02:26 Temperature Pulse Rate 64 63 69 Respiratory Rate Blood Pressure O2 Sat by Pulse 98 97 97 Oximetry 03/24/21 03/24/21 03/24/21 02:31 02:36 02:41 Temperature Pulse Rate 72 73 73 Respiratory Rate Blood Pressure O2 Sat by Pulse 97 96 96 Oximetry 03/24/21 03/24/21 03/24/21 02:43 02:46 02:49 Temperature Pulse Rate 87 83 83 Respiratory Rate Blood Pressure O2 Sat by Pulse 89 95 93 Oximetry 03/24/21 03/24/21 03/24/21 02:51 02:54 02:56 Temperature Pulse Rate 80 101 H 95 H Respiratory Rate Blood Pressure O2 Sat by Pulse 96 93 99 Oximetry 03/24/21 03/24/21 03/24/21 03:01 03:06 03:11 Temperature Pulse Rate 96 H 72 66 Respiratory Rate Blood Pressure O2 Sat by Pulse 99 99 98 Oximetry 03/24/21 03/24/21 03/24/21 03:16 03:21 03:26 Temperature Pulse Rate 68 68 74 Respiratory Rate Blood Pressure O2 Sat by Pulse 97 97 97 Oximetry 03/24/21 03/24/21 03/24/21 03:31 03:36 03:41 Temperature Pulse Rate 72 75 75 Respiratory Rate Blood Pressure O2 Sat by Pulse 97 97 97 Oximetry 03/24/21 03/24/21 03/24/21 03:46 03:49 03:51 Temperature Pulse Rate 74 79 92 H Respiratory Rate Blood Pressure O2 Sat by Pulse 97 92 98 Oximetry 03/24/21 03/24/21 03/24/21 03:57 04:02 04:07 Temperature Pulse Rate 98 H 63 64 Respiratory Rate Blood Pressure O2 Sat by Pulse 99 98 98 Oximetry 03/24/21 03/24/21 03/24/21 04:12 04:17 04:22 Temperature Pulse Rate 67 69 69 Respiratory Rate Blood Pressure O2 Sat by Pulse 97 96 96 Oximetry 03/24/21 03/24/21 03/24/21 04:27 04:28 04:32 Temperature Pulse Rate 70 77 72 Respiratory Rate Blood Pressure O2 Sat by Pulse 95 94 97 Oximetry 03/24/21 03/24/21 03/24/21 04:36 04:37 04:41 Temperature Pulse Rate 82 79 77 Respiratory Rate Blood Pressure O2 Sat by Pulse 93 97 94 Oximetry 03/24/21 03/24/21 03/24/21 04:42 04:46 04:47 Temperature Pulse Rate 68 80 78 Respiratory Rate Blood Pressure O2 Sat by Pulse 99 93 96 Oximetry 03/24/21 03/24/21 03/24/21 04:52 04:57 05:02 Temperature Pulse Rate 111 H 76 75 Respiratory Rate Blood Pressure O2 Sat by Pulse 99 98 98 Oximetry 03/24/21 03/24/21 03/24/21 05:07 05:12 05:17 Temperature Pulse Rate 70 74 68 Respiratory Rate Blood Pressure O2 Sat by Pulse 98 97 97 Oximetry 03/24/21 03/24/21 03/24/21 05:22 05:27 05:32 Temperature Pulse Rate 70 75 74 Respiratory Rate Blood Pressure O2 Sat by Pulse 98 97 97 Oximetry 03/24/21 03/24/21 03/24/21 05:37 05:46 05:51 Temperature Pulse Rate 73 106 H 66 Respiratory Rate Blood Pressure O2 Sat by Pulse 97 99 98 Oximetry 03/24/21 03/24/21 03/24/21 05:56 06:01 06:06 Temperature Pulse Rate 62 65 73 Respiratory Rate Blood Pressure O2 Sat by Pulse 98 97 95 Oximetry 03/24/21 03/24/21 03/24/21 06:10 06:11 06:16 Temperature Pulse Rate 78 72 72 Respiratory Rate Blood Pressure O2 Sat by Pulse 92 95 96 Oximetry 03/24/21 03/24/21 03/24/21 06:19 06:21 06:26 Temperature Pulse Rate 76 73 79 Respiratory Rate Blood Pressure O2 Sat by Pulse 93 96 94 Oximetry 03/24/21 03/24/21 03/24/21 06:31 06:34 06:36 Temperature Pulse Rate 71 75 81 Respiratory Rate Blood Pressure O2 Sat by Pulse 96 93 96 Oximetry 03/24/21 03/24/21 03/24/21 06:41 06:46 06:50 Temperature Pulse Rate 72 75 104 H Respiratory Rate Blood Pressure O2 Sat by Pulse 95 94 98 Oximetry 03/24/21 03/24/21 03/24/21 06:55 07:00 07:05 Temperature Pulse Rate 71 71 67 Respiratory Rate Blood Pressure O2 Sat by Pulse 96 96 99 Oximetry 03/24/21 03/24/21 03/24/21 07:10 07:15 07:20 Temperature Pulse Rate 69 70 75 Respiratory Rate Blood Pressure O2 Sat by Pulse 98 98 97 Oximetry 03/24/21 03/24/21 03/24/21 07:25 07:30 07:35 Temperature Pulse Rate 72 68 70 Respiratory Rate Blood Pressure O2 Sat by Pulse 100 99 97 Oximetry 03/24/21 03/24/21 03/24/21 07:40 07:41 07:50 Temperature Pulse Rate 76 67 76 Respiratory Rate Blood Pressure O2 Sat by Pulse 97 92 0 L Oximetry 03/24/21 03/24/21 03/24/21 07:53 07:58 08:03 Temperature Pulse Rate 91 H 88 79 Respiratory Rate Blood Pressure O2 Sat by Pulse 97 98 99 Oximetry 03/24/21 03/24/21 03/24/21 08:08 08:13 08:18 Temperature Pulse Rate 70 76 72 Respiratory Rate Blood Pressure O2 Sat by Pulse 99 99 99 Oximetry 03/24/21 03/24/21 03/24/21 08:23 08:28 08:33 Temperature Pulse Rate 67 76 69 Respiratory Rate Blood Pressure O2 Sat by Pulse 99 98 99 Oximetry 03/24/21 03/24/21 03/24/21 08:38 08:47 08:52 Temperature Pulse Rate 77 81 83 Respiratory Rate Blood Pressure O2 Sat by Pulse 98 99 98 Oximetry 03/24/21 03/24/21 03/24/21 08:57 09:01 09:02 Temperature Pulse Rate 68 96 H 84 Respiratory Rate Blood Pressure O2 Sat by Pulse 98 87 98 Oximetry 03/24/21 03/24/21 03/24/21 09:07 09:12 09:17 Temperature Pulse Rate 87 94 H 85 Respiratory Rate Blood Pressure O2 Sat by Pulse 98 96 97 Oximetry 03/24/21 03/24/21 03/24/21 09:21 09:22 09:26 Temperature 98.4 F Pulse Rate 90 88 Respiratory Rate Blood Pressure O2 Sat by Pulse 91 99 Oximetry 03/24/21 03/24/21 03/24/21 09:27 09:32 09:37 Temperature Pulse Rate 89 86 89 Respiratory Rate Blood Pressure 106/63 O2 Sat by Pulse 98 98 98 Oximetry 03/24/21 03/24/21 03/24/21 09:42 09:47 09:52 Temperature Pulse Rate 92 H 86 92 H Respiratory Rate Blood Pressure O2 Sat by Pulse 98 98 98 Oximetry 03/24/21 03/24/21 03/24/21 10:09 10:14 10:19 Temperature Pulse Rate 99 H 80 93 H Respiratory Rate Blood Pressure O2 Sat by Pulse 100 100 100 Oximetry 03/24/21 03/24/21 03/24/21 10:24 10:29 10:34 Temperature Pulse Rate 82 87 91 H Respiratory Rate Blood Pressure O2 Sat by Pulse 100 99 98 Oximetry 03/24/21 03/24/21 03/24/21 10:36 10:39 10:44 Temperature Pulse Rate 81 91 H 89 Respiratory Rate Blood Pressure O2 Sat by Pulse 99 100 Oximetry 03/24/21 03/24/21 03/24/21 10:51 10:56 11:01 Temperature Pulse Rate 108 H 78 88 Respiratory Rate Blood Pressure O2 Sat by Pulse 97 99 100 Oximetry 03/24/21 03/24/21 03/24/21 11:06 11:11 11:22 Temperature Pulse Rate 80 84 101 H Respiratory Rate Blood Pressure O2 Sat by Pulse 100 99 98 Oximetry 03/24/21 03/24/21 03/24/21 11:27 11:32 11:37 Temperature Pulse Rate 79 86 81 Respiratory Rate Blood Pressure O2 Sat by Pulse 98 97 100 Oximetry 03/24/21 03/24/21 03/24/21 11:42 11:47 11:52 Temperature Pulse Rate 81 81 86 Respiratory Rate Blood Pressure O2 Sat by Pulse 100 99 98 Oximetry 03/24/21 03/24/21 03/24/21 11:57 12:02 12:07 Temperature Pulse Rate 77 108 H 78 Respiratory Rate Blood Pressure O2 Sat by Pulse 98 100 99 Oximetry 03/24/21 03/24/21 03/24/21 12:12 12:17 12:22 Temperature 98.8 F Pulse Rate 82 79 101 H Respiratory 16 Rate Blood Pressure 107/62 O2 Sat by Pulse 99 98 97 Oximetry 03/24/21 03/24/21 03/24/21 12:27 12:32 12:37 Temperature Pulse Rate 79 74 78 Respiratory Rate Blood Pressure O2 Sat by Pulse 96 96 96 Oximetry 03/24/21 03/24/21 03/24/21 12:42 12:47 12:52 Temperature Pulse Rate 80 88 78 Respiratory Rate Blood Pressure O2 Sat by Pulse 96 97 96 Oximetry 03/24/21 12:57 Temperature Pulse Rate 79 Respiratory Rate Blood Pressure O2 Sat by Pulse 97 Oximetry - Exam Narrative Exam: NAD laying in bed Abdomen: Present: normal appearance FHR: category 1 Uterine Contraction Pattern: Absent - Labs Labs: Abnormal Labs 03/19/21 03/22/21 17:23 11:51 WBC 13.6 H RBC 3.34 L 3.10 L Hgb 9.5 L Hct 29.0 L - Results US- obstetric: report reviewed
--- NOTE | 2021-03-24 19:22 | Progress Note ---
Assessment and Plan -continuous IV fluids -continuous monitoring -delivery at 36wks - Patient Problems (1) Oligohydramnios antepartum Current Visit: Yes Status: Acute Plan to address problem: -continuous fluids -repeat BPP this AM, persistently low fluid -s/p Beta x2 -IOL at 36wks -MFM recommendations reviewed, continue with plan as outlined. PNC per [facility] reviewed on chart. O+/Liz/HIV-HepB neg/RPRNR/OGTTelevated- 3OGTT neg -GBS negative (2) Chronic hypertension affecting Current Visit: Yes Status: Acute Plan to address problem: labetalol 100 q d, held today secondary to hypotension -monitor for s/s of superimposed preeclampsia (3) Advanced maternal age during Current Visit: Yes Status: Acute (4) Herpes infection in Current Visit: Yes Status: Acute (5) Glucose intolerance Current Visit: Yes Status: Acute Subjective - Subjective Principal diagnosis: Oligohydramnios Interval history: 35yo @ 35w3d presents as admit from [facility] evaluation for oligohydramnios with plan for inpatient monitoring and delivery if findings persist. Evaluation secondary to advanced maternal age and chronic hypertension. No new complaints. Patient reports: movement normal, no new complaints, no loss of fluid, no vaginal bleeding, no contractions Objective - Vital Signs Vital Signs: Vital Signs - 12hr 03/24/21 03/24/21 03/24/21 07:20 07:25 07:30 Temperature Pulse Rate 75 72 68 Respiratory Rate Blood Pressure O2 Sat by Pulse 97 100 99 Oximetry 03/24/21 03/24/21 03/24/21 07:35 07:40 07:41 Temperature Pulse Rate 70 76 67 Respiratory Rate Blood Pressure O2 Sat by Pulse 97 97 92 Oximetry 03/24/21 03/24/21 03/24/21 07:50 07:53 07:58 Temperature Pulse Rate 76 91 H 88 Respiratory Rate Blood Pressure O2 Sat by Pulse 0 L 97 98 Oximetry 03/24/21 03/24/21 03/24/21 08:03 08:08 08:13 Temperature Pulse Rate 79 70 76 Respiratory Rate Blood Pressure O2 Sat by Pulse 99 99 99 Oximetry 03/24/21 03/24/21 03/24/21 08:18 08:23 08:28 Temperature Pulse Rate 72 67 76 Respiratory Rate Blood Pressure O2 Sat by Pulse 99 99 98 Oximetry 03/24/21 03/24/21 03/24/21 08:33 08:38 08:47 Temperature Pulse Rate 69 77 81 Respiratory Rate Blood Pressure O2 Sat by Pulse 99 98 99 Oximetry 03/24/21 03/24/21 03/24/21 08:52 08:57 09:01 Temperature Pulse Rate 83 68 96 H Respiratory Rate Blood Pressure O2 Sat by Pulse 98 98 87 Oximetry 03/24/21 03/24/21 03/24/21 09:02 09:07 09:12 Temperature Pulse Rate 84 87 94 H Respiratory Rate Blood Pressure O2 Sat by Pulse 98 98 96 Oximetry 03/24/21 03/24/21 03/24/21 09:17 09:21 09:22 Temperature Pulse Rate 85 90 Respiratory Rate Blood Pressure O2 Sat by Pulse 97 91 99 Oximetry 03/24/21 03/24/21 03/24/21 09:26 09:27 09:32 Temperature 98.4 F Pulse Rate 88 89 86 Respiratory Rate Blood Pressure 106/63 O2 Sat by Pulse 98 98 Oximetry 03/24/21 03/24/21 03/24/21 09:37 09:42 09:47 Temperature Pulse Rate 89 92 H 86 Respiratory Rate Blood Pressure O2 Sat by Pulse 98 98 98 Oximetry 03/24/21 03/24/21 03/24/21 09:52 10:09 10:14 Temperature Pulse Rate 92 H 99 H 80 Respiratory Rate Blood Pressure O2 Sat by Pulse 98 100 100 Oximetry 03/24/21 03/24/21 03/24/21 10:19 10:24 10:29 Temperature Pulse Rate 93 H 82 87 Respiratory Rate Blood Pressure O2 Sat by Pulse 100 100 99 Oximetry 03/24/21 03/24/21 03/24/21 10:34 10:36 10:39 Temperature Pulse Rate 91 H 81 91 H Respiratory Rate Blood Pressure O2 Sat by Pulse 98 99 Oximetry 03/24/21 03/24/21 03/24/21 10:44 10:51 10:56 Temperature Pulse Rate 89 108 H 78 Respiratory Rate Blood Pressure O2 Sat by Pulse 100 97 99 Oximetry 03/24/21 03/24/21 03/24/21 11:01 11:06 11:11 Temperature Pulse Rate 88 80 84 Respiratory Rate Blood Pressure O2 Sat by Pulse 100 100 99 Oximetry 03/24/21 03/24/21 03/24/21 11:22 11:27 11:32 Temperature Pulse Rate 101 H 79 86 Respiratory Rate Blood Pressure O2 Sat by Pulse 98 98 97 Oximetry 03/24/21 03/24/21 03/24/21 11:37 11:42 11:47 Temperature Pulse Rate 81 81 81 Respiratory Rate Blood Pressure O2 Sat by Pulse 100 100 99 Oximetry 03/24/21 03/24/21 03/24/21 11:52 11:57 12:02 Temperature Pulse Rate 86 77 108 H Respiratory Rate Blood Pressure O2 Sat by Pulse 98 98 100 Oximetry 03/24/21 03/24/21 03/24/21 12:07 12:12 12:17 Temperature 98.8 F Pulse Rate 78 82 79 Respiratory 16 Rate Blood Pressure 107/62 O2 Sat by Pulse 99 99 98 Oximetry 03/24/21 03/24/21 03/24/21 12:22 12:27 12:32 Temperature Pulse Rate 101 H 79 74 Respiratory Rate Blood Pressure O2 Sat by Pulse 97 96 96 Oximetry 03/24/21 03/24/21 03/24/21 12:37 12:42 12:47 Temperature Pulse Rate 78 80 88 Respiratory Rate Blood Pressure O2 Sat by Pulse 96 96 97 Oximetry 03/24/21 03/24/21 03/24/21 12:52 12:57 13:02 Temperature Pulse Rate 78 79 77 Respiratory Rate Blood Pressure O2 Sat by Pulse 96 97 97 Oximetry 03/24/21 03/24/21 03/24/21 13:07 13:12 13:19 Temperature Pulse Rate 81 81 112 H Respiratory Rate Blood Pressure O2 Sat by Pulse 98 97 98 Oximetry 03/24/21 03/24/21 03/24/21 13:24 13:29 13:34 Temperature Pulse Rate 73 72 73 Respiratory Rate Blood Pressure O2 Sat by Pulse 100 99 98 Oximetry 03/24/21 03/24/21 03/24/21 13:39 13:44 13:49 Temperature Pulse Rate 76 79 80 Respiratory Rate Blood Pressure O2 Sat by Pulse 98 98 98 Oximetry 03/24/21 03/24/21 03/24/21 13:54 13:59 14:04 Temperature Pulse Rate 67 73 74 Respiratory Rate Blood Pressure O2 Sat by Pulse 98 99 98 Oximetry 03/24/21 03/24/21 03/24/21 14:09 14:14 14:19 Temperature Pulse Rate 82 73 77 Respiratory Rate Blood Pressure O2 Sat by Pulse 97 100 100 Oximetry 03/24/21 03/24/21 03/24/21 14:24 14:29 14:38 Temperature Pulse Rate 71 75 108 H Respiratory Rate Blood Pressure O2 Sat by Pulse 99 100 97 Oximetry 03/24/21 03/24/21 03/24/21 14:43 14:48 14:53 Temperature Pulse Rate 68 68 74 Respiratory Rate Blood Pressure O2 Sat by Pulse 100 98 100 Oximetry 03/24/21 03/24/21 03/24/21 14:58 15:03 15:08 Temperature Pulse Rate 73 74 75 Respiratory Rate Blood Pressure O2 Sat by Pulse 98 99 99 Oximetry 03/24/21 03/24/21 03/24/21 15:13 15:22 15:23 Temperature Pulse Rate 74 80 79 Respiratory Rate Blood Pressure O2 Sat by Pulse 99 100 89 Oximetry 03/24/21 03/24/21 03/24/21 15:27 15:32 15:37 Temperature Pulse Rate 72 74 71 Respiratory Rate Blood Pressure O2 Sat by Pulse 99 98 96 Oximetry 03/24/21 03/24/21 03/24/21 15:42 15:47 15:52 Temperature Pulse Rate 73 69 70 Respiratory Rate Blood Pressure O2 Sat by Pulse 99 99 100 Oximetry 03/24/21 03/24/21 03/24/21 15:57 16:02 16:32 Temperature Pulse Rate 75 66 73 Respiratory Rate Blood Pressure O2 Sat by Pulse 100 100 100 Oximetry 03/24/21 03/24/21 03/24/21 16:33 16:37 16:42 Temperature Pulse Rate 65 89 78 Respiratory Rate Blood Pressure O2 Sat by Pulse 93 100 100 Oximetry 03/24/21 03/24/21 03/24/21 16:47 16:52 16:55 Temperature Pulse Rate 86 84 60 Respiratory Rate Blood Pressure O2 Sat by Pulse 100 100 85 Oximetry 03/24/21 03/24/21 03/24/21 16:57 17:02 17:07 Temperature Pulse Rate 78 81 85 Respiratory Rate Blood Pressure O2 Sat by Pulse 100 100 99 Oximetry 03/24/21 03/24/21 03/24/21 17:12 17:13 17:18 Temperature Pulse Rate 81 47 L 84 Respiratory Rate Blood Pressure O2 Sat by Pulse 100 89 100 Oximetry 05/10/0403/24/21 03/24/21 17:24 17:25 17:30 Temperature Pulse Rate 65 76 Respiratory Rate Blood Pressure O2 Sat by Pulse 100 85 100 Oximetry 03/24/21 03/24/21 03/24/21 17:35 17:40 17:50 Temperature Pulse Rate 74 75 105 H Respiratory Rate Blood Pressure O2 Sat by Pulse 100 99 99 Oximetry 03/24/21 03/24/21 03/24/21 17:55 18:00 18:05 Temperature Pulse Rate 80 78 75 Respiratory Rate Blood Pressure O2 Sat by Pulse 100 100 100 Oximetry 03/24/21 03/24/21 03/24/21 18:10 18:15 18:18 Temperature Pulse Rate 78 80 89 Respiratory Rate Blood Pressure O2 Sat by Pulse 99 100 84 Oximetry 03/24/21 03/24/21 03/24/21 18:20 18:25 18:30 Temperature Pulse Rate 71 67 67 Respiratory Rate Blood Pressure O2 Sat by Pulse 100 100 99 Oximetry 03/24/21 03/24/21 03/24/21 18:35 18:40 18:45 Temperature Pulse Rate 68 69 74 Respiratory Rate Blood Pressure O2 Sat by Pulse 98 99 98 Oximetry 03/24/21 03/24/21 03/24/21 18:50 18:56 19:01 Temperature Pulse Rate 80 84 75 Respiratory Rate Blood Pressure O2 Sat by Pulse 99 98 100 Oximetry 03/24/21 03/24/21 03/24/21 19:06 19:11 19:16 Temperature 98.9 F Pulse Rate 74 74 71 Respiratory 20 Rate Blood Pressure 118/70 O2 Sat by Pulse 100 100 100 Oximetry - Exam Cardiovascular: Regular rate Lungs: Clear to auscultation Abdomen: Present: normal appearance FHR: category 1 Uterine Contraction Monitor Mode: External Uterine Contraction Pattern: Absent - Labs Labs: Abnormal Labs 03/19/21 03/22/21 17:23 11:51 WBC 13.6 H RBC 3.34 L 3.10 L Hgb 9.5 L Hct 29.0 L
[2021-03-25] MEDS: LACTATED RINGERS 1,000 ML IV SCH ×3 (03:32→22:16)
[2021-03-25] MEDS: valACYclovir 500 MG TAB PO SCH (10:07)
--- NOTE | 2021-03-25 13:08 | Progress Note ---
Assessment and Plan A: IUP at 35w4d s/p betamethasone x 2 doses Oligohydramnios Chronic Hypertension Advanced Maternal Age P: Continue current management with plan for delivery at 36 wks. Subjective - Subjective Date of service: 03/25/21 Principal diagnosis: Oligohydramnios, Chronic HTN Interval history: No overnight events. Pt is in good spirits. Denies headache, blurry vision, RUQ pain and scotomata. Patient reports: movement normal, no new complaints, no loss of fluid, no vaginal bleeding, no contractions Objective - Vital Signs Vital Signs: Vital Signs - 12hr 03/25/21 03/25/21 03/25/21 01:09 01:13 01:18 Temperature Pulse Rate 96 H 74 Respiratory Rate Blood Pressure O2 Sat by Pulse 94 98 98 Oximetry 03/25/21 03/25/21 03/25/21 01:23 01:28 01:33 Temperature Pulse Rate 76 73 73 Respiratory Rate Blood Pressure O2 Sat by Pulse 98 98 98 Oximetry 03/25/21 03/25/21 03/25/21 01:38 01:43 01:48 Temperature Pulse Rate 78 74 71 Respiratory Rate Blood Pressure O2 Sat by Pulse 98 97 98 Oximetry 03/25/21 03/25/21 03/25/21 01:53 01:58 02:03 Temperature Pulse Rate 74 95 H 74 Respiratory Rate Blood Pressure O2 Sat by Pulse 98 99 98 Oximetry 03/25/21 03/25/21 03/25/21 02:08 02:13 02:18 Temperature Pulse Rate 75 79 79 Respiratory Rate Blood Pressure O2 Sat by Pulse 98 98 99 Oximetry 03/25/21 03/25/21 03/25/21 02:23 02:28 02:33 Temperature Pulse Rate 93 H 89 83 Respiratory Rate Blood Pressure O2 Sat by Pulse 98 99 97 Oximetry 03/25/21 03/25/21 03/25/21 02:40 02:45 02:50 Temperature Pulse Rate 91 H 65 65 Respiratory Rate Blood Pressure O2 Sat by Pulse 99 98 98 Oximetry 03/25/21 03/25/21 03/25/21 02:55 03:00 03:05 Temperature Pulse Rate 71 69 74 Respiratory Rate Blood Pressure O2 Sat by Pulse 99 98 97 Oximetry 03/25/21 03/25/21 03/25/21 03:10 03:15 03:20 Temperature Pulse Rate 73 73 77 Respiratory Rate Blood Pressure O2 Sat by Pulse 98 97 97 Oximetry 03/25/21 03/25/21 03/25/21 03:25 03:30 03:35 Temperature Pulse Rate 76 86 65 Respiratory Rate Blood Pressure O2 Sat by Pulse 97 99 97 Oximetry 03/25/21 03/25/21 03/25/21 03:40 03:45 03:50 Temperature Pulse Rate 73 70 78 Respiratory Rate Blood Pressure O2 Sat by Pulse 98 98 99 Oximetry 03/25/21 03/25/21 03/25/21 03:55 04:00 04:06 Temperature Pulse Rate 73 87 98 H Respiratory Rate Blood Pressure O2 Sat by Pulse 98 98 99 Oximetry 03/25/21 03/25/21 03/25/21 04:11 04:16 04:21 Temperature Pulse Rate 74 75 65 Respiratory Rate Blood Pressure O2 Sat by Pulse 98 98 98 Oximetry 03/25/21 03/25/21 03/25/21 04:26 04:31 04:36 Temperature Pulse Rate 69 72 72 Respiratory Rate Blood Pressure O2 Sat by Pulse 98 98 98 Oximetry 03/25/21 03/25/21 03/25/21 04:41 04:46 04:51 Temperature Pulse Rate 76 72 71 Respiratory Rate Blood Pressure O2 Sat by Pulse 97 97 98 Oximetry 03/25/21 03/25/21 03/25/21 04:56 05:02 05:07 Temperature Pulse Rate 75 102 H 65 Respiratory Rate Blood Pressure O2 Sat by Pulse 98 99 98 Oximetry 03/25/21 03/25/21 03/25/21 05:12 05:17 05:22 Temperature Pulse Rate 66 63 77 Respiratory Rate Blood Pressure O2 Sat by Pulse 98 98 98 Oximetry 03/25/21 03/25/21 03/25/21 05:27 05:32 05:37 Temperature Pulse Rate 75 72 68 Respiratory Rate Blood Pressure O2 Sat by Pulse 97 98 98 Oximetry 03/25/21 03/25/21 03/25/21 05:42 05:46 05:47 Temperature Pulse Rate 67 98 H 91 H Respiratory Rate Blood Pressure O2 Sat by Pulse 99 91 97 Oximetry 03/25/21 03/25/21 03/25/21 05:52 05:57 06:06 Temperature Pulse Rate 83 69 100 H Respiratory Rate Blood Pressure O2 Sat by Pulse 98 99 100 Oximetry 03/25/21 03/25/2103/25/21 06:11 06:16 06:21 Temperature Pulse Rate 70 70 82 Respiratory Rate Blood Pressure O2 Sat by Pulse 98 97 98 Oximetry 03/25/21 03/25/21 03/25/21 06:22 06:26 06:31 Temperature Pulse Rate 75 69 66 Respiratory Rate Blood Pressure 126/74 O2 Sat by Pulse 98 98 Oximetry 03/25/21 03/25/21 03/25/21 06:36 06:41 06:46 Temperature Pulse Rate 72 71 72 Respiratory Rate Blood Pressure O2 Sat by Pulse 98 98 98 Oximetry 03/25/21 03/25/21 03/25/21 06:51 06:58 07:03 Temperature Pulse Rate 71 64 Respiratory Rate Blood Pressure O2 Sat by Pulse 98 99 99 Oximetry 03/25/21 03/25/21 03/25/21 07:08 07:13 07:18 Temperature Pulse Rate 62 65 74 Respiratory Rate Blood Pressure O2 Sat by Pulse 98 99 99 Oximetry 03/25/21 03/25/21 03/25/21 07:23 07:28 07:33 Temperature Pulse Rate 70 66 68 Respiratory Rate Blood Pressure O2 Sat by Pulse 98 98 98 Oximetry 03/25/21 03/25/21 03/25/21 07:38 07:43 07:48 Temperature Pulse Rate 67 77 78 Respiratory Rate Blood Pressure O2 Sat by Pulse 98 98 98 Oximetry 03/25/21 03/25/21 03/25/21 07:53 07:58 08:03 Temperature Pulse Rate 81 76 73 Respiratory Rate Blood Pressure O2 Sat by Pulse 98 99 98 Oximetry 03/25/21 03/25/21 03/25/21 08:05 08:18 08:19 Temperature Pulse Rate 76 82 Respiratory Rate Blood Pressure O2 Sat by Pulse 85 85 99 Oximetry 03/25/21 03/25/21 03/25/21 08:24 08:29 08:34 Temperature Pulse Rate 97 H 84 79 Respiratory Rate Blood Pressure O2 Sat by Pulse 98 100 100 Oximetry 03/25/21 03/25/21 03/25/21 08:35 08:39 08:44 Temperature 98.3 F Pulse Rate 78 76 75 Respiratory 20 Rate Blood Pressure 121/67 O2 Sat by Pulse 99 100 Oximetry 03/25/21 03/25/21 03/25/21 08:49 09:00 09:05 Temperature Pulse Rate 76 89 78 Respiratory Rate Blood Pressure O2 Sat by Pulse 99 100 99 Oximetry 03/25/21 03/25/21 03/25/21 09:10 09:15 09:20 Temperature Pulse Rate 78 82 81 Respiratory Rate Blood Pressure O2 Sat by Pulse 100 99 99 Oximetry 03/25/21 03/25/21 03/25/21 09:25 09:35 09:40 Temperature Pulse Rate 82 89 88 Respiratory Rate Blood Pressure O2 Sat by Pulse 99 100 99 Oximetry 03/25/21 03/25/21 03/25/21 09:45 09:50 09:55 Temperature Pulse Rate 77 80 79 Respiratory Rate Blood Pressure O2 Sat by Pulse 100 100 99 Oximetry 03/25/21 03/25/21 03/25/21 10:00 10:05 10:10 Temperature Pulse Rate 82 85 79 Respiratory Rate Blood Pressure O2 Sat by Pulse 99 100 99 Oximetry 03/25/21 03/25/21 03/25/21 10:15 11:06 11:15 Temperature Pulse Rate 80 96 H 89 Respiratory Rate Blood Pressure O2 Sat by Pulse 99 100 99 Oximetry 03/25/21 03/25/21 03/25/21 11:20 11:25 11:30 Temperature Pulse Rate 88 84 84 Respiratory Rate Blood Pressure O2 Sat by Pulse 99 99 100 Oximetry 03/25/21 03/25/21 03/25/21 11:35 11:40 11:45 Temperature Pulse Rate 86 85 91 H Respiratory Rate Blood Pressure O2 Sat by Pulse 99 99 99 Oximetry 03/25/21 03/25/21 03/25/21 11:50 11:55 12:00 Temperature Pulse Rate 85 84 98 H Respiratory Rate Blood Pressure O2 Sat by Pulse 98 98 98 Oximetry 03/25/21 03/25/21 03/25/21 12:05 12:10 12:15 Temperature Pulse Rate 107 H 88 90 Respiratory Rate Blood Pressure O2 Sat by Pulse 98 99 99 Oximetry 03/25/21 03/25/21 03/25/21 12:20 12:25 12:30 Temperature Pulse Rate 76 85 88 Respiratory Rate Blood Pressure O2 Sat by Pulse 100 99 98 Oximetry 03/25/21 03/25/21 03/25/21 12:35 12:40 12:45 Temperature Pulse Rate 78 84 89 Respiratory Rate Blood Pressure O2 Sat by Pulse 99 98 98 Oximetry 05/11/0303/25/21 03/25/21 12:50 12:55 13:00 Temperature Pulse Rate 110 H 79 82 Respiratory Rate Blood Pressure O2 Sat by Pulse 96 99 98 Oximetry - Exam Breasts: deferred Abdomen: Present: soft (gravid ). Absent: tenderness Uterus: Present: normal (gravid ) FHR: auscultation normal Uterine Tone Measurement Phase: Resting - Labs Labs: Abnormal Labs 03/19/21 03/22/21 17:23 11:51 WBC 13.6 H RBC 3.34 L 3.10 L Hgb 9.5 L Hct 29.0 L
--- NOTE | 2021-03-25 16:57 | Consultation ---
Consult Note - Parent Education I met with parent(s) and discussed the following:: Need for NICU admission, Temp erature regulation, Possible need for IV fluids/TPN and IV antibiotics, Importance of providing breast milk & encouraged pumping aft delivery, Slow feeding advancement and monitoring of tolerance. NG/OG feeds, Need to monitor for jaundice, Data for survival & survival without significant co-morbidities Parent(s) demonstrated understanding of all the information:: Yes Additional Comment: 35yo mother of a 35 4/7 week male infant who was admitted for oligohydramnios. 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 OB/AMFM plan at present is to induce at 36 weeks. O+, HIV negative, Hep B negative , rubella immune, GC/Chlamydia negative, GBS unknown. Mother has received bethamethasone x2 Assessment and Plan - Assessment Gestation:: 34 Estimated Weight: 5 lbs Baby's gender: Male - Plan Plan: Will attend delivery if needed Please call NICU with questions
[2021-03-26 01:08] LABS: Hematocrit 27.8 % (30.3-42.9); Hemoglobin 9.5 gm/dl (10.1-14.3); Mean Corpuscular HGB Conc 34 % (30-34); Mean Corpuscular Volume 92 fl (79-97); Platelet Count 190 K/mm3 (140-440); Red Blood Count 3.02 M/mm3 (3.65-5.03); Red Cell Distribution Width 13.6 % (13.2-15.2)
[2021-03-26] MEDS: LACTATED RINGERS 1,000 ML IV SCH (06:07)
--- NOTE | 2021-03-26 07:22 | Progress Note ---
Assessment and Plan IUP at 35 5/7 weeks gestation -s/p course of steroids CHTN stable on current labetalol dose Oligohydramnios 03/19/21 : GAYLA 4.7cm 03/22 : GAYLA 3.9cm 03/24 GAYLA 2.3cm , normal dopplers BPP 6/8 - cat I tracing final BPP 8/10 Anemia 1. Continuous monitoring, monitor for Cat III tracing Proceed with delivery if tracing becomes non reassuring ( Cat III), BPP 6/10 or less , AEDF or RF on UA dopplers 2. Continue GAYLA /BPP/Doppler q 2-3 days 3 Delivery is advised at 36 0/7 weeks gestation - sooner if indicated ( see above) 4 continue to monitor BP, Labetalol held 03/24 5. iron replacement Subjective - Subjective Date of service: 03/26/21 Principal diagnosis: Oligohydramnios, Chronic HTN Interval history: She has no complaints Denied cramping , bleeding , LOF , abnl vaginal discharge She was seen by the NICU team and had no additional questions Patient reports: movement normal, no new complaints, no loss of fluid, no vaginal bleeding, no contractions Objective - Vital Signs Vital Signs: Vital Signs - 12hr 03/25/21 03/25/21 03/25/21 19:23 19:28 19:33 Temperature Pulse Rate 88 76 79 Respiratory Rate Blood Pressure Blood Pressure [Left] O2 Sat by Pulse 98 98 99 Oximetry 03/25/21 03/25/21 03/25/21 19:38 19:40 19:43 Temperature 98.4 F Pulse Rate 83 80 79 Respiratory 16 Rate Blood Pressure 121/64 Blood Pressure 121/64 [Left] O2 Sat by Pulse 99 99 99 Oximetry 03/25/21 03/25/21 03/25/21 19:48 19:58 20:03 Temperature Pulse Rate 80 89 84 Respiratory Rate Blood Pressure Blood Pressure [Left] O2 Sat by Pulse 98 95 99 Oximetry 03/25/21 03/25/21 03/25/21 20:08 20:13 20:18 Temperature Pulse Rate 96 H 90 99 H Respiratory Rate Blood Pressure Blood Pressure [Left] O2 Sat by Pulse 99 100 100 Oximetry 03/25/21 03/25/21 03/25/21 20:23 20:33 20:38 Temperature Pulse Rate 84 60 80 Respiratory Rate Blood Pressure Blood Pressure [Left] O2 Sat by Pulse 100 84 99 Oximetry 03/25/21 03/25/21 03/25/21 20:43 20:48 20:53 Temperature Pulse Rate 88 89 88 Respiratory Rate Blood Pressure Blood Pressure [Left] O2 Sat by Pulse 99 99 99 Oximetry 03/25/21 03/25/21 03/25/21 20:58 21:03 21:08 Temperature Pulse Rate 88 81 86 Respiratory Rate Blood Pressure Blood Pressure [Left] O2 Sat by Pulse 98 99 98 Oximetry 03/25/21 03/25/21 03/25/21 21:13 21:18 21:23 Temperature Pulse Rate 85 96 H 79 Respiratory Rate Blood Pressure Blood Pressure [Left] O2 Sat by Pulse 98 96 98 Oximetry 03/25/21 03/25/21 03/25/21 21:28 21:33 21:38 Temperature Pulse Rate 88 82 84 Respiratory Rate Blood Pressure Blood Pressure [Left] O2 Sat by Pulse 98 98 98 Oximetry 03/25/21 03/25/21 03/25/21 21:43 21:53 21:58 Temperature Pulse Rate 80 94 H 89 Respiratory Rate Blood Pressure Blood Pressure [Left] O2 Sat by Pulse 98 97 97 Oximetry 03/25/21 03/25/21 03/25/21 22:03 22:08 22:13 Temperature Pulse Rate 79 78 77 Respiratory Rate Blood Pressure Blood Pressure [Left] O2 Sat by Pulse 97 98 98 Oximetry 03/25/21 03/25/21 03/25/21 22:18 22:27 22:32 Temperature Pulse Rate 88 97 H 84 Respiratory Rate Blood Pressure Blood Pressure [Left] O2 Sat by Pulse 98 90 98 Oximetry 03/25/21 03/25/21 03/25/21 22:37 22:42 22:47 Temperature Pulse Rate 80 84 86 Respiratory Rate Blood Pressure Blood Pressure [Left] O2 Sat by Pulse 99 99 98 Oximetry 03/25/21 03/25/21 03/25/21 22:52 22:57 23:02 Temperature Pulse Rate 78 105 H 80 Respiratory Rate Blood Pressure Blood Pressure [Left] O2 Sat by Pulse 99 98 98 Oximetry 03/25/21 03/25/21 03/25/21 23:07 23:12 23:16 Temperature Pulse Rate 84 79 77 Respiratory Rate Blood Pressure 117/61 Blood Pressure [Left] O2 Sat by Pulse 98 98 Oximetry 03/25/21 03/25/21 03/25/21 23:17 23:22 23:27 Temperature 97.9 F Pulse Rate 79 78 80 Respiratory 15 Rate Blood Pressure Blood Pressure 117/61 [Left] O2 Sat by Pulse 98 98 98 Oximetry 03/25/21 03/25/21 03/25/21 23:32 23:37 23:43 Temperature Pulse Rate 79 81 72 Respiratory Rate Blood Pressure Blood Pressure [Left] O2 Sat by Pulse 98 98 87 Oximetry 03/25/21 03/25/21 03/25/21 23:48 23:53 23:58 Temperature Pulse Rate 95 H 82 73 Respiratory Rate Blood Pressure Blood Pressure [Left] O2 Sat by Pulse 99 99 98 Oximetry 03/26/21 03/26/21 03/26/21 00:03 00:08 00:13 Temperature Pulse Rate 83 77 79 Respiratory Rate Blood Pressure Blood Pressure [Left] O2 Sat by Pulse 97 98 97 Oximetry 03/26/21 03/26/21 03/26/21 00:18 00:23 00:28 Temperature Pulse Rate 79 77 83 Respiratory Rate Blood Pressure Blood Pressure [Left] O2 Sat by Pulse 97 98 99 Oximetry 03/26/21 03/26/21 03/26/21 00:35 00:40 00:45 Temperature Pulse Rate 104 H 77 79 Respiratory Rate Blood Pressure Blood Pressure [Left] O2 Sat by Pulse 98 97 97 Oximetry 03/26/21 03/26/21 03/26/21 00:50 00:55 01:00 Temperature Pulse Rate 77 81 83 Respiratory Rate Blood Pressure Blood Pressure [Left] O2 Sat by Pulse 98 98 98 Oximetry 03/26/21 03/26/21 03/26/21 01:05 01:10 01:17 Temperature Pulse Rate 78 78 122 H Respiratory Rate Blood Pressure Blood Pressure [Left] O2 Sat by Pulse 98 98 90 Oximetry 03/26/21 03/26/21 03/26/21 01:22 01:27 01:32 Temperature Pulse Rate 68 74 71 Respiratory Rate Blood Pressure Blood Pressure [Left] O2 Sat by Pulse 98 98 97 Oximetry 03/26/21 03/26/21 03/26/21 01:37 01:42 01:46 Temperature Pulse Rate 71 76 80 Respiratory Rate Blood Pressure Blood Pressure [Left] O2 Sat by Pulse 97 98 92 Oximetry 03/26/21 03/26/21 03/26/21 01:47 01:52 01:57 Temperature Pulse Rate 83 82 78 Respiratory Rate Blood Pressure Blood Pressure [Left] O2 Sat by Pulse 96 97 97 Oximetry 03/26/21 03/26/21 03/26/21 02:02 02:07 02:12 Temperature Pulse Rate 79 78 83 Respiratory Rate Blood Pressure Blood Pressure [Left] O2 Sat by Pulse 99 97 99 Oximetry 03/26/21 03/26/21 03/26/21 02:17 02:22 02:27 Temperature Pulse Rate 74 71 75 Respiratory Rate Blood Pressure Blood Pressure [Left] O2 Sat by Pulse 98 97 97 Oximetry 03/26/21 03/26/21 03/26/21 02:32 02:37 02:42 Temperature Pulse Rate 72 72 75 Respiratory Rate Blood Pressure Blood Pressure [Left] O2 Sat by Pulse 98 98 97 Oximetry 03/26/21 03/26/21 03/26/21 02:47 02:52 02:57 Temperature Pulse Rate 71 72 75 Respiratory Rate Blood Pressure Blood Pressure [Left] O2 Sat by Pulse 98 98 98 Oximetry 03/26/21 03/26/21 03/26/21 03:02 03:07 03:12 Temperature Pulse Rate 74 72 84 Respiratory Rate Blood Pressure Blood Pressure [Left] O2 Sat by Pulse 98 98 98 Oximetry 03/26/21 03/26/21 03/26/21 03:17 03:22 03:27 Temperature Pulse Rate 93 H 67 74 Respiratory Rate Blood Pressure Blood Pressure [Left] O2 Sat by Pulse 98 98 98 Oximetry 03/26/21 03/26/21 03/26/21 03:32 03:37 03:42 Temperature Pulse Rate 68 74 73 Respiratory Rate Blood Pressure Blood Pressure [Left] O2 Sat by Pulse 98 98 98 Oximetry 03/26/21 03/26/21 03/26/21 03:47 03:52 03:57 Temperature Pulse Rate 68 70 69 Respiratory Rate Blood Pressure Blood Pressure [Left] O2 Sat by Pulse 98 98 98 Oximetry 03/26/21 03/26/21 03/26/21 04:02 04:07 04:12 Temperature Pulse Rate 71 69 70 Respiratory Rate Blood Pressure Blood Pressure [Left] O2 Sat by Pulse 98 97 99 Oximetry 03/26/21 03/26/21 03/26/21 04:17 04:22 04:28 Temperature Pulse Rate 69 78 96 H Respiratory Rate Blood Pressure Blood Pressure [Left] O2 Sat by Pulse 99 98 98 Oximetry 03/26/21 03/26/21 03/26/21 04:33 04:38 04:43 Temperature Pulse Rate 68 79 86 Respiratory Rate Blood Pressure Blood Pressure [Left] O2 Sat by Pulse 99 99 99 Oximetry 03/26/21 03/26/21 03/26/21 04:48 04:53 04:58 Temperature Pulse Rate 69 72 89 Respiratory Rate Blood Pressure Blood Pressure [Left] O2 Sat by Pulse 99 99 98 Oximetry 03/26/21 03/26/21 03/26/21 05:03 05:08 05:13 Temperature Pulse Rate 71 96 H 79 Respiratory Rate Blood Pressure 111/65 Blood Pressure [Left] O2 Sat by Pulse 98 98 100 Oximetry 03/26/21 03/26/21 03/26/21 05:15 05:18 05:23 Temperature 98 F Pulse Rate 77 84 Respiratory 18 Rate Blood Pressure Blood Pressure [Left] O2 Sat by Pulse 99 98 Oximetry 03/26/21 03/26/21 03/26/21 05:28 05:33 05:38 Temperature Pulse Rate 92 H 76 86 Respiratory Rate Blood Pressure Blood Pressure [Left] O2 Sat by Pulse 98 99 99 Oximetry 03/26/21 03/26/21 03/26/21 05:43 05:48 05:53 Temperature Pulse Rate 85 70 78 Respiratory Rate Blood Pressure Blood Pressure [Left] O2 Sat by Pulse 98 98 99 Oximetry 03/26/21 03/26/21 03/26/21 06:01 06:06 06:11 Temperature Pulse Rate 77 74 78 Respiratory Rate Blood Pressure Blood Pressure [Left] O2 Sat by Pulse 100 99 100 Oximetry 03/26/21 03/26/21 03/26/21 06:16 06:21 06:26 Temperature Pulse Rate 72 74 77 Respiratory Rate Blood Pressure Blood Pressure [Left] O2 Sat by Pulse 100 98 98 Oximetry 03/26/21 03/26/21 03/26/21 06:31 06:36 06:41 Temperature Pulse Rate 75 77 79 Respiratory Rate Blood Pressure Blood Pressure [Left] O2 Sat by Pulse 98 98 98 Oximetry 03/26/21 03/26/21 03/26/21 06:46 06:51 06:56 Temperature Pulse Rate 80 80 79 Respiratory Rate Blood Pressure Blood Pressure [Left] O2 Sat by Pulse 98 98 98 Oximetry 03/26/21 03/26/21 07:12 07:17 Temperature Pulse Rate 79 90 Respiratory Rate Blood Pressure Blood Pressure [Left] O2 Sat by Pulse 100 100 Oximetry - Exam Narrative Exam: NAD laying in bed Abdomen: Present: soft FHR: category 1 Uterine Contraction Pattern: Absent - Labs Labs: Abnormal Labs 03/19/21 03/22/21 03/26/21 17:23 11:51 00:26 WBC 13.6 H RBC 3.34 L 3.10 L 3.02 L Hgb 9.5 L 9.5 L Hct 29.0 L 27.8 L Laboratory Results - last 24 hr 03/26/21 03/26/21 00:26 00:26 WBC 8.5 RBC 3.02 L Hgb 9.5 L Hct 27.8 L MCV 92 MCH 31 MCHC 34 RDW 13.6 Plt Count 190 Blood Type O POSITIVE Antibody Screen Negative
--- NOTE | 2021-03-26 07:57 | Progress Note ---
Assessment and Plan - Patient Problems (1) Oligohydramnios antepartum Current Visit: Yes Status: Acute Plan to address problem: Plan for delivery at 36 weeks Subjective - Subjective Date of service: 03/26/21 Principal diagnosis: Oligohydramnios, Chronic HTN Interval history: 35-year-old -0-2-0 at 35+5 weeks admitted for oligohydramnios. Plan is to deliver at 36 weeks. Patient is currently without complaints. tracing remains reassuring Patient reports: movement normal, no new complaints, no loss of fluid, no vaginal bleeding, no contractions Objective - Vital Signs Vital Signs: Vital Signs - 12hr 03/25/21 03/25/21 03/25/21 19:58 20:03 20:08 Temperature Pulse Rate 89 84 96 H Respiratory Rate Blood Pressure Blood Pressure [Left] O2 Sat by Pulse 95 99 99 Oximetry 03/25/21 03/25/21 03/25/21 20:13 20:18 20:23 Temperature Pulse Rate 90 99 H 84 Respiratory Rate Blood Pressure Blood Pressure [Left] O2 Sat by Pulse 100 100 100 Oximetry 03/25/21 03/25/21 03/25/21 20:33 20:38 20:43 Temperature Pulse Rate 60 80 88 Respiratory Rate Blood Pressure Blood Pressure [Left] O2 Sat by Pulse 84 99 99 Oximetry 03/25/21 03/25/21 03/25/21 20:48 20:53 20:58 Temperature Pulse Rate 89 88 88 Respiratory Rate Blood Pressure Blood Pressure [Left] O2 Sat by Pulse 99 99 98 Oximetry 03/25/21 03/25/21 03/25/21 21:03 21:08 21:13 Temperature Pulse Rate 81 86 85 Respiratory Rate Blood Pressure Blood Pressure [Left] O2 Sat by Pulse 99 98 98 Oximetry 03/25/21 03/25/21 03/25/21 21:18 21:23 21:28 Temperature Pulse Rate 96 H 79 88 Respiratory Rate Blood Pressure Blood Pressure [Left] O2 Sat by Pulse 96 98 98 Oximetry 03/25/21 03/25/21 03/25/21 21:33 21:38 21:43 Temperature Pulse Rate 82 84 80 Respiratory Rate Blood Pressure Blood Pressure [Left] O2 Sat by Pulse 98 98 98 Oximetry 03/25/21 03/25/21 03/25/21 21:53 21:58 22:03 Temperature Pulse Rate 94 H 89 79 Respiratory Rate Blood Pressure Blood Pressure [Left] O2 Sat by Pulse 97 97 97 Oximetry 03/25/21 03/25/21 03/25/21 22:08 22:13 22:18 Temperature Pulse Rate 78 77 88 Respiratory Rate Blood Pressure Blood Pressure [Left] O2 Sat by Pulse 98 98 98 Oximetry 03/25/21 03/25/21 03/25/21 22:27 22:32 22:37 Temperature Pulse Rate 97 H 84 80 Respiratory Rate Blood Pressure Blood Pressure [Left] O2 Sat by Pulse 90 98 99 Oximetry 03/25/21 03/25/21 03/25/21 22:42 22:47 22:52 Temperature Pulse Rate 84 86 78 Respiratory Rate Blood Pressure Blood Pressure [Left] O2 Sat by Pulse 99 98 99 Oximetry 03/25/21 03/25/21 03/25/21 22:57 23:02 23:07 Temperature Pulse Rate 105 H 80 84 Respiratory Rate Blood Pressure Blood Pressure [Left] O2 Sat by Pulse 98 98 98 Oximetry 03/25/21 03/25/21 03/25/21 23:12 23:16 23:17 Temperature 97.9 F Pulse Rate 79 77 79 Respiratory 15 Rate Blood Pressure 117/61 Blood Pressure 117/61 [Left] O2 Sat by Pulse 98 98 Oximetry 03/25/21 03/25/21 03/25/21 23:22 23:27 23:32 Temperature Pulse Rate 78 80 79 Respiratory Rate Blood Pressure Blood Pressure [Left] O2 Sat by Pulse 98 98 98 Oximetry 03/25/21 03/25/21 03/25/21 23:37 23:43 23:48 Temperature Pulse Rate 81 72 95 H Respiratory Rate Blood Pressure Blood Pressure [Left] O2 Sat by Pulse 98 87 99 Oximetry 03/25/21 03/25/21 03/26/21 23:53 23:58 00:03 Temperature Pulse Rate 82 73 83 Respiratory Rate Blood Pressure Blood Pressure [Left] O2 Sat by Pulse 99 98 97 Oximetry 03/26/21 03/26/21 03/26/21 00:08 00:13 00:18 Temperature Pulse Rate 77 79 79 Respiratory Rate Blood Pressure Blood Pressure [Left] O2 Sat by Pulse 98 97 97 Oximetry 03/26/21 03/26/21 03/26/21 00:23 00:28 00:35 Temperature Pulse Rate 77 83 104 H Respiratory Rate Blood Pressure Blood Pressure [Left] O2 Sat by Pulse 98 99 98 Oximetry 03/26/21 03/26/21 03/26/21 00:40 00:45 00:50 Temperature Pulse Rate 77 79 77 Respiratory Rate Blood Pressure Blood Pressure [Left] O2 Sat by Pulse 97 97 98 Oximetry 03/26/21 03/26/21 03/26/21 00:55 01:00 01:05 Temperature Pulse Rate 81 83 78 Respiratory Rate Blood Pressure Blood Pressure [Left] O2 Sat by Pulse 98 98 98 Oximetry 03/26/21 03/26/21 03/26/21 01:10 01:17 01:22 Temperature Pulse Rate 78 122 H 68 Respiratory Rate Blood Pressure Blood Pressure [Left] O2 Sat by Pulse 98 90 98 Oximetry 03/26/21 03/26/21 03/26/21 01:27 01:32 01:37 Temperature Pulse Rate 74 71 71 Respiratory Rate Blood Pressure Blood Pressure [Left] O2 Sat by Pulse 98 97 97 Oximetry 03/26/21 03/26/21 03/26/21 01:42 01:46 01:47 Temperature Pulse Rate 76 80 83 Respiratory Rate Blood Pressure Blood Pressure [Left] O2 Sat by Pulse 98 92 96 Oximetry 03/26/21 03/26/21 03/26/21 01:52 01:57 02:02 Temperature Pulse Rate 82 78 79 Respiratory Rate Blood Pressure Blood Pressure [Left] O2 Sat by Pulse 97 97 99 Oximetry 03/26/21 03/26/21 03/26/21 02:07 02:12 02:17 Temperature Pulse Rate 78 83 74 Respiratory Rate Blood Pressure Blood Pressure [Left] O2 Sat by Pulse 97 99 98 Oximetry 03/26/21 03/26/21 03/26/21 02:22 02:27 02:32 Temperature Pulse Rate 71 75 72 Respiratory Rate Blood Pressure Blood Pressure [Left] O2 Sat by Pulse 97 97 98 Oximetry 03/26/21 03/26/21 03/26/21 02:37 02:42 02:47 Temperature Pulse Rate 72 75 71 Respiratory Rate Blood Pressure Blood Pressure [Left] O2 Sat by Pulse 98 97 98 Oximetry 03/26/21 03/26/21 03/26/21 02:52 02:57 03:02 Temperature Pulse Rate 72 75 74 Respiratory Rate Blood Pressure Blood Pressure [Left] O2 Sat by Pulse 98 98 98 Oximetry 0503/26/21 03/26/21 03:07 03:12 03:17 Temperature Pulse Rate 72 84 93 H Respiratory Rate Blood Pressure Blood Pressure [Left] O2 Sat by Pulse 98 98 98 Oximetry 03/26/21 03/26/21 03/26/21 03:22 03:27 03:32 Temperature Pulse Rate 67 74 68 Respiratory Rate Blood Pressure Blood Pressure [Left] O2 Sat by Pulse 98 98 98 Oximetry 03/26/21 03/26/21 03/26/21 03:37 03:42 03:47 Temperature Pulse Rate 74 73 68 Respiratory Rate Blood Pressure Blood Pressure [Left] O2 Sat by Pulse 98 98 98 Oximetry 03/26/21 03/26/21 03/26/21 03:52 03:57 04:02 Temperature Pulse Rate 70 69 71 Respiratory Rate Blood Pressure Blood Pressure [Left] O2 Sat by Pulse 98 98 98 Oximetry 03/26/21 03/26/21 03/26/21 04:07 04:12 04:17 Temperature Pulse Rate 69 70 69 Respiratory Rate Blood Pressure Blood Pressure [Left] O2 Sat by Pulse 97 99 99 Oximetry 03/26/21 03/26/21 03/26/21 04:22 04:28 04:33 Temperature Pulse Rate 78 96 H 68 Respiratory Rate Blood Pressure Blood Pressure [Left] O2 Sat by Pulse 98 98 99 Oximetry 03/26/21 03/26/21 03/26/21 04:38 04:43 04:48 Temperature Pulse Rate 79 86 69 Respiratory Rate Blood Pressure Blood Pressure [Left] O2 Sat by Pulse 99 99 99 Oximetry 03/26/21 03/26/21 03/26/21 04:53 04:58 05:03 Temperature Pulse Rate 72 89 71 Respiratory Rate Blood Pressure Blood Pressure [Left] O2 Sat by Pulse 99 98 98 Oximetry 03/26/21 03/26/21 03/26/21 05:08 05:13 05:15 Temperature 98 F Pulse Rate 96 H 79 Respiratory 18 Rate Blood Pressure 111/65 Blood Pressure [Left] O2 Sat by Pulse 98 100 Oximetry 03/26/21 03/26/21 03/26/21 05:18 05:23 05:28 Temperature Pulse Rate 77 84 92 H Respiratory Rate Blood Pressure Blood Pressure [Left] O2 Sat by Pulse 99 98 98 Oximetry 03/26/21 03/26/21 03/26/21 05:33 05:38 05:43 Temperature Pulse Rate 76 86 85 Respiratory Rate Blood Pressure Blood Pressure [Left] O2 Sat by Pulse 99 99 98 Oximetry 03/26/21 03/26/21 03/26/21 05:48 05:53 06:01 Temperature Pulse Rate 70 78 77 Respiratory Rate Blood Pressure Blood Pressure [Left] O2 Sat by Pulse 98 99 100 Oximetry 03/26/21 03/26/21 03/26/21 06:06 06:11 06:16 Temperature Pulse Rate 74 78 72 Respiratory Rate Blood Pressure Blood Pressure [Left] O2 Sat by Pulse 99 100 100 Oximetry 03/26/21 03/26/21 03/26/21 06:21 06:26 06:31 Temperature Pulse Rate 74 77 75 Respiratory Rate Blood Pressure Blood Pressure [Left] O2 Sat by Pulse 98 98 98 Oximetry 03/26/21 03/26/21 03/26/21 06:36 06:41 06:46 Temperature Pulse Rate 77 79 80 Respiratory Rate Blood Pressure Blood Pressure [Left] O2 Sat by Pulse 98 98 98 Oximetry 03/26/21 03/26/21 03/26/21 06:51 06:56 07:12 Temperature Pulse Rate 80 79 79 Respiratory Rate Blood Pressure Blood Pressure [Left] O2 Sat by Pulse 98 98 100 Oximetry 03/26/21 03/26/21 03/26/21 07:17 07:22 07:27 Temperature Pulse Rate 90 76 78 Respiratory Rate Blood Pressure Blood Pressure [Left] O2 Sat by Pulse 100 100 100 Oximetry 03/26/21 03/26/21 03/26/21 07:32 07:37 07:42 Temperature Pulse Rate 81 81 83 Respiratory Rate Blood Pressure Blood Pressure [Left] O2 Sat by Pulse 99 100 99 Oximetry 03/26/21 03/26/21 07:47 07:52 Temperature Pulse Rate 107 H 76 Respiratory Rate Blood Pressure Blood Pressure [Left] O2 Sat by Pulse 99 99 Oximetry - Labs Labs: Abnormal Labs 03/19/21 03/22/21 03/26/21 17:23 11:51 00:26 WBC 13.6 H RBC 3.34 L 3.10 L 3.02 L Hgb 9.5 L 9.5 L Hct 29.0 L 27.8 L Laboratory Results - last 24 hr 03/26/21 03/26/21 00:26 00:26 WBC 8.5 RBC 3.02 L Hgb 9.5 L Hct 27.8 L MCV 92 MCH 31 MCHC 34 RDW 13.6 Plt Count 190 Blood Type O POSITIVE Antibody Screen Negative
[2021-03-26] MEDS: valACYclovir 500 MG TAB PO SCH (09:30)
--- NOTE | 2021-03-27 08:38 | Progress Note ---
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 Pt is in good spirits but is anxious about her induction. She reports her mother is flying in tomorrow morning around 5 am. She asks that her induction be started around 6 am rather than midnight. Patient reports: movement normal, no new complaints, no loss of fluid, no vaginal bleeding, no contractions Objective - Vital Signs Vital Signs: Vital Signs - 12hr 03/26/21 03/26/21 03/26/21 20:38 20:40 20:41 Temperature 98.3 F Pulse Rate 81 84 Respiratory 17 Rate Blood Pressure 121/76 O2 Sat by Pulse 100 Oximetry 03/26/21 03/26/21 03/26/21 20:48 20:53 20:58 Temperature Pulse Rate 99 H 80 88 Respiratory Rate Blood Pressure O2 Sat by Pulse 91 98 100 Oximetry 03/26/21 03/26/21 03/26/21 21:03 21:08 21:13 Temperature Pulse Rate 82 88 83 Respiratory Rate Blood Pressure O2 Sat by Pulse 99 99 99 Oximetry 03/26/21 03/26/21 03/26/21 21:18 21:23 21:28 Temperature Pulse Rate 82 70 82 Respiratory Rate Blood Pressure O2 Sat by Pulse 100 99 99 Oximetry 03/26/21 03/26/21 03/26/21 21:33 21:40 21:45 Temperature Pulse Rate 88 98 H 98 H Respiratory Rate Blood Pressure O2 Sat by Pulse 99 100 99 Oximetry 03/26/21 03/26/21 03/26/21 21:50 21:55 22:00 Temperature Pulse Rate 77 77 89 Respiratory Rate Blood Pressure O2 Sat by Pulse 99 98 98 Oximetry 03/26/21 03/26/21 03/26/21 22:05 22:10 22:16 Temperature Pulse Rate 83 84 96 H Respiratory Rate Blood Pressure O2 Sat by Pulse 99 100 99 Oximetry 03/26/21 03/26/21 03/26/21 22:21 22:26 22:31 Temperature Pulse Rate 90 80 88 Respiratory Rate Blood Pressure O2 Sat by Pulse 99 99 99 Oximetry 03/26/21 03/26/21 03/26/21 22:36 22:41 22:46 Temperature Pulse Rate 97 H 90 87 Respiratory Rate Blood Pressure O2 Sat by Pulse 99 99 99 Oximetry 03/26/21 03/26/21 03/26/21 22:51 22:56 23:01 Temperature Pulse Rate 84 99 H 52 L Respiratory Rate Blood Pressure O2 Sat by Pulse 98 100 100 Oximetry 03/26/21 03/26/21 03/26/21 23:06 23:11 23:16 Temperature Pulse Rate 85 78 83 Respiratory Rate Blood Pressure O2 Sat by Pulse 97 96 97 Oximetry 03/26/21 03/26/21 03/26/21 23:21 23:26 23:31 Temperature Pulse Rate 77 79 85 Respiratory Rate Blood Pressure O2 Sat by Pulse 96 96 96 Oximetry 03/26/21 03/26/21 03/26/21 23:36 23:37 23:42 Temperature Pulse Rate 85 94 H 97 H Respiratory Rate Blood Pressure O2 Sat by Pulse 96 93 99 Oximetry 03/26/21 03/26/21 03/26/21 23:47 23:52 23:57 Temperature Pulse Rate 91 H 74 84 Respiratory Rate Blood Pressure O2 Sat by Pulse 96 96 96 Oximetry 03/27/21 03/27/21 03/27/21 00:02 00:03 00:07 Temperature Pulse Rate 103 H 103 H 85 Respiratory Rate Blood Pressure O2 Sat by Pulse 95 94 99 Oximetry 03/27/21 03/27/21 03/27/21 00:12 00:17 00:22 Temperature Pulse Rate 82 84 85 Respiratory Rate Blood Pressure O2 Sat by Pulse 98 98 99 Oximetry 03/27/21 03/27/21 03/27/21 00:27 00:32 00:37 Temperature Pulse Rate 81 86 84 Respiratory Rate Blood Pressure O2 Sat by Pulse 97 97 98 Oximetry 03/27/21 03/27/21 03/27/21 00:42 00:47 00:52 Temperature Pulse Rate 83 88 79 Respiratory Rate Blood Pressure O2 Sat by Pulse 98 98 98 Oximetry 03/27/21 03/27/21 03/27/21 00:57 01:02 01:15 Temperature 97.9 F Pulse Rate 84 83 81 Respiratory 17 Rate Blood Pressure 111/65 O2 Sat by Pulse 98 99 Oximetry 05/03/27/21 03/27/21 01:16 01:21 01:26 Temperature Pulse Rate 88 79 72 Respiratory Rate Blood Pressure O2 Sat by Pulse 100 99 99 Oximetry 03/27/21 03/27/21 03/27/21 01:31 01:36 01:41 Temperature Pulse Rate 78 77 79 Respiratory Rate Blood Pressure O2 Sat by Pulse 99 98 98 Oximetry 03/27/21 03/27/21 03/27/21 01:46 01:51 01:56 Temperature Pulse Rate 79 79 79 Respiratory Rate Blood Pressure O2 Sat by Pulse 98 98 98 Oximetry 03/27/21 03/27/21 03/27/21 02:01 02:06 02:11 Temperature Pulse Rate 83 78 81 Respiratory Rate Blood Pressure O2 Sat by Pulse 98 98 98 Oximetry 03/27/21 03/27/21 03/27/21 02:16 02:21 02:26 Temperature Pulse Rate 80 81 80 Respiratory Rate Blood Pressure O2 Sat by Pulse 98 98 98 Oximetry 03/27/21 03/27/21 03/27/21 02:31 02:36 02:43 Temperature Pulse Rate 85 83 83 Respiratory Rate Blood Pressure O2 Sat by Pulse 98 99 100 Oximetry 03/27/21 03/27/21 03/27/21 02:48 02:53 02:58 Temperature Pulse Rate 79 76 72 Respiratory Rate Blood Pressure O2 Sat by Pulse 99 98 98 Oximetry 03/27/21 03/27/21 03/27/21 03:03 03:08 03:13 Temperature Pulse Rate 80 80 81 Respiratory Rate Blood Pressure O2 Sat by Pulse 98 97 98 Oximetry 03/27/21 03/27/21 03/27/21 03:18 03:23 03:28 Temperature Pulse Rate 75 81 79 Respiratory Rate Blood Pressure O2 Sat by Pulse 98 98 99 Oximetry 03/27/21 03/27/21 03/27/21 03:33 03:38 03:43 Temperature Pulse Rate 85 86 83 Respiratory Rate Blood Pressure O2 Sat by Pulse 98 99 99 Oximetry 03/27/21 03/27/21 03/27/21 03:48 03:53 03:58 Temperature Pulse Rate 83 79 85 Respiratory Rate Blood Pressure O2 Sat by Pulse 99 99 99 Oximetry 03/27/21 03/27/21 03/27/21 04:03 04:08 04:13 Temperature Pulse Rate 94 H 87 78 Respiratory Rate Blood Pressure O2 Sat by Pulse 98 98 99 Oximetry 03/27/21 03/27/21 03/27/21 04:18 04:23 04:29 Temperature Pulse Rate 75 82 79 Respiratory Rate Blood Pressure O2 Sat by Pulse 99 98 100 Oximetry 03/27/21 03/27/21 03/27/21 04:34 04:39 04:44 Temperature Pulse Rate 74 66 80 Respiratory Rate Blood Pressure O2 Sat by Pulse 99 99 98 Oximetry 03/27/21 03/27/21 03/27/21 04:49 04:54 04:59 Temperature Pulse Rate 71 73 70 Respiratory Rate Blood Pressure O2 Sat by Pulse 98 98 98 Oximetry 03/27/21 03/27/21 03/27/21 05:04 05:09 05:12 Temperature Pulse Rate 74 107 H 88 Respiratory Rate Blood Pressure O2 Sat by Pulse 99 85 100 Oximetry 03/27/21 03/27/21 03/27/21 05:17 05:22 05:27 Temperature Pulse Rate 72 76 81 Respiratory Rate Blood Pressure O2 Sat by Pulse 100 99 99 Oximetry 03/27/21 03/27/21 03/27/21 05:32 05:37 05:42 Temperature Pulse Rate 78 76 77 Respiratory Rate Blood Pressure O2 Sat by Pulse 99 99 99 Oximetry 03/27/21 03/27/21 03/27/21 05:47 05:52 05:57 Temperature Pulse Rate 77 80 98 H Respiratory Rate Blood Pressure O2 Sat by Pulse 100 100 99 Oximetry 03/27/21 03/27/21 03/27/21 06:02 06:07 06:12 Temperature Pulse Rate 85 98 H 84 Respiratory Rate Blood Pressure O2 Sat by Pulse 100 98 99 Oximetry 03/27/21 03/27/21 03/27/21 06:17 06:22 06:27 Temperature Pulse Rate 95 H 91 H 89 Respiratory Rate Blood Pressure O2 Sat by Pulse 99 99 100 Oximetry 03/27/21 03/27/21 03/27/21 06:32 06:37 06:42 Temperature Pulse Rate 91 H 82 88 Respiratory Rate Blood Pressure O2 Sat by Pulse 100 99 100 Oximetry 03/27/21 03/27/21 03/27/21 06:47 06:52 06:56 Temperature Pulse Rate 93 H 92 H 100 H Respiratory Rate Blood Pressure O2 Sat by Pulse 99 100 87 Oximetry 03/27/21 03/27/2103/27/21 06:57 07:08 07:12 Temperature Pulse Rate 85 89 Respiratory Rate Blood Pressure O2 Sat by Pulse 100 90 98 Oximetry 03/27/21 03/27/21 03/27/21 07:13 07:17 07:22 Temperature 98.7 F Pulse Rate 80 85 82 Respiratory 20 Rate Blood Pressure 112/73 O2 Sat by Pulse 97 98 Oximetry 03/27/21 03/27/21 03/27/21 07:27 07:32 07:37 Temperature Pulse Rate 76 83 81 Respiratory Rate Blood Pressure O2 Sat by Pulse 99 98 98 Oximetry 03/27/21 03/27/21 03/27/21 07:42 07:56 07:57 Temperature Pulse Rate 82 101 H 120 H Respiratory Rate Blood Pressure O2 Sat by Pulse 98 98 92 Oximetry 03/27/21 03/27/21 03/27/21 08:01 08:06 08:11 Temperature Pulse Rate 87 84 85 Respiratory Rate Blood Pressure O2 Sat by Pulse 99 98 98 Oximetry 03/27/21 03/27/21 03/27/21 08:16 08:20 08:21 Temperature Pulse Rate 82 86 90 Respiratory Rate Blood Pressure O2 Sat by Pulse 98 88 99 Oximetry - Exam Breasts: deferred Abdomen: Present: soft (gravid) Uterus: Present: normal (gravid ) FHR: auscultation normal Uterine Contraction Pattern: Irregular Uterine Tone Measurement Phase: Resting Uterine Contraction Intensity: Mild - Labs Labs: Abnormal Labs 03/19/21 03/22/21 03/26/21 17:23 11:51 00:26 WBC 13.6 H RBC 3.34 L 3.10 L 3.02 L Hgb 9.5 L 9.5 L Hct 29.0 L 27.8 L
[2021-03-27] MEDS: valACYclovir 500 MG TAB PO SCH (09:27)
[2021-03-27] MEDS ORDERED: CARBOPROST TROMETHAMINE 250 MCG/1 ML INJ IM PRN (22:07)
[2021-03-27] MEDS ORDERED: OXYTOCIN 10 UNIT/1 ML INJ IM PRN (22:07)
[2021-03-27] MEDS ORDERED: ePHEDrine SULFATE 50 MG/1 ML INJ IV PRN (22:07)
[2021-03-27] MEDS ORDERED: ONDANSETRON 4 MG/2 ML INJ IV PRN (22:07)
[2021-03-27] MEDS ORDERED: MINERAL OIL 30 ML ORAL LIQD PO PRN (22:07)
[2021-03-27] MEDS ORDERED: TERBUTALINE 1 MG/1 ML INJ SUB-Q PRN (22:07)
[2021-03-27] MEDS ORDERED: fentaNYL 100 MCG/2 ML INJ IV PRN (22:07)
[2021-03-27] MEDS ORDERED: NALOXONE 0.4 MG/1 ML INJ IV PRN (22:07)
[2021-03-27] MEDS ORDERED: LOPERAMIDE 2 MG CAP PO PRN (22:07)
[2021-03-27] MEDS ORDERED: miSOPROStol 200 MCG TAB PR PRN (22:07)
[2021-03-27] MEDS ORDERED: LIDOCAINE (2%) 20 MG/1 ML VIAL 20 ML MDV INFILTRATI ONE (22:17)
[2021-03-27] MEDS ORDERED: OXYTOCIN DRIP 30 UNITS/500 ML BAG IV SCH (23:00)
[2021-03-28] MEDS ORDERED: AMPICILLIN/NS 2 GM/100 ML 2 GM/100 ML BAG IV ONE (06:00)
[2021-03-28] MEDS ORDERED: DINOPROSTONE 10 MG VAG SUPP VG ONE ×2 (06:00→07:00)
[2021-03-28] MEDS: LACTATED RINGERS 1,000 ML IV SCH ×2 (06:57→14:39)
[2021-03-28] MEDS ORDERED: OXYTOCIN DRIP 30 UNITS/500 ML BAG IV SCH (07:00)
--- NOTE | 2021-03-28 08:14 | Progress Note ---
Assessment and Plan A: IUP at 36w0d Oligohydramnios Chronic Hypertension GBS unknown on Ampicillin AMA Genital Herpes without lesion or prodrome P: Continue labor induction Closely monitor maternal and status Subjective - Subjective Date of service: 03/28/21 Principal diagnosis: Oligohydramnios, Chronic HTN Interval history: Induction of labor for oligohydramnios at 36 wks started this morning. Cervidil placed at 0645 am. Pt feels cramping but is tolerating it well. Her mother arrived safely in the city and will arrive at the hospital during visiting hours. Patient reports: movement normal, no new complaints, no loss of fluid, no vaginal bleeding, no contractions Objective - Vital Signs Vital Signs: Vital Signs - 12hr 03/27/21 03/27/21 03/27/21 20:35 20:40 20:45 Temperature Pulse Rate 89 88 89 Respiratory Rate Blood Pressure Blood Pressure [Left] O2 Sat by Pulse 100 97 98 Oximetry 03/27/21 03/27/21 03/27/21 20:51 20:56 21:01 Temperature Pulse Rate 90 89 82 Respiratory Rate Blood Pressure Blood Pressure [Left] O2 Sat by Pulse 98 98 100 Oximetry 03/27/21 03/27/21 03/27/21 21:17 21:21 21:26 Temperature Pulse Rate 90 89 93 H Respiratory Rate Blood Pressure Blood Pressure [Left] O2 Sat by Pulse 100 100 100 Oximetry 03/27/21 03/27/21 03/27/21 21:32 21:36 21:42 Temperature Pulse Rate 81 88 92 H Respiratory Rate Blood Pressure Blood Pressure [Left] O2 Sat by Pulse 99 100 99 Oximetry 03/27/21 03/27/21 03/27/21 21:47 21:52 21:57 Temperature Pulse Rate 91 H 93 H 84 Respiratory Rate Blood Pressure Blood Pressure [Left] O2 Sat by Pulse 100 100 100 Oximetry 03/27/21 03/27/21 03/27/21 22:02 22:07 22:12 Temperature Pulse Rate 99 H 90 90 Respiratory Rate Blood Pressure Blood Pressure [Left] O2 Sat by Pulse 100 100 99 Oximetry 03/27/21 03/27/21 03/27/21 22:17 22:23 22:29 Temperature Pulse Rate 106 H 96 H 105 H Respiratory Rate Blood Pressure Blood Pressure [Left] O2 Sat by Pulse 100 99 100 Oximetry 03/27/21 03/27/21 03/27/21 22:33 22:39 22:44 Temperature Pulse Rate 97 H 90 85 Respiratory Rate Blood Pressure Blood Pressure [Left] O2 Sat by Pulse 99 98 98 Oximetry 03/27/21 03/27/21 03/27/21 22:48 22:54 22:58 Temperature Pulse Rate 86 85 82 Respiratory Rate Blood Pressure Blood Pressure [Left] O2 Sat by Pulse 98 98 98 Oximetry 03/27/21 03/27/21 03/27/21 23:04 23:08 23:13 Temperature Pulse Rate 87 93 H 79 Respiratory Rate Blood Pressure 104/64 Blood Pressure [Left] O2 Sat by Pulse 98 99 98 Oximetry 03/27/21 03/27/21 03/27/21 23:18 23:24 23:28 Temperature Pulse Rate 80 80 85 Respiratory Rate Blood Pressure Blood Pressure [Left] O2 Sat by Pulse 98 98 98 Oximetry 03/27/21 03/27/21 03/27/21 23:34 23:38 23:40 Temperature Pulse Rate 92 H 89 102 H Respiratory Rate Blood Pressure Blood Pressure [Left] O2 Sat by Pulse 99 98 92 Oximetry 03/27/21 03/27/21 03/27/21 23:43 23:49 23:53 Temperature Pulse Rate 89 85 95 H Respiratory Rate Blood Pressure Blood Pressure [Left] O2 Sat by Pulse 98 98 98 Oximetry 03/28/21 03/28/21 03/28/21 00:00 00:06 00:10 Temperature Pulse Rate 92 H 72 79 Respiratory Rate Blood Pressure Blood Pressure [Left] O2 Sat by Pulse 99 98 96 Oximetry 03/28/21 03/28/21 03/28/21 00:16 00:20 00:25 Temperature Pulse Rate 83 81 76 Respiratory Rate Blood Pressure Blood Pressure [Left] O2 Sat by Pulse 97 97 97 Oximetry 03/28/21 03/28/21 03/28/21 00:30 00:35 00:40 Temperature Pulse Rate 81 78 82 Respiratory Rate Blood Pressure Blood Pressure [Left] O2 Sat by Pulse 97 97 99 Oximetry 03/28/21 03/28/21 03/28/21 00:46 00:51 00:55 Temperature Pulse Rate 83 82 82 Respiratory Rate Blood Pressure Blood Pressure [Left] O2 Sat by Pulse 98 98 98 Oximetry 03/28/21 03/28/21 03/28/21 01:00 01:05 01:10 Temperature Pulse Rate 83 81 80 Respiratory Rate Blood Pressure Blood Pressure [Left] O2 Sat by Pulse 98 99 98 Oximetry 03/28/21 03/28/21 03/28/21 01:15 01:20 01:25 Temperature Pulse Rate 80 89 99 H Respiratory Rate Blood Pressure Blood Pressure [Left] O2 Sat by Pulse 98 99 98 Oximetry 03/28/21 03/28/21 03/28/21 01:31 01:36 01:40 Temperature Pulse Rate 93 H 78 81 Respiratory Rate Blood Pressure Blood Pressure [Left] O2 Sat by Pulse 99 99 97 Oximetry 03/28/21 03/28/21 03/28/21 01:45 01:51 01:55 Temperature Pulse Rate 80 81 80 Respiratory Rate Blood Pressure Blood Pressure [Left] O2 Sat by Pulse 99 98 97 Oximetry 03/28/21 03/28/21 03/28/21 02:00 02:01 02:05 Temperature Pulse Rate 58 L 74 80 Respiratory Rate Blood Pressure Blood Pressure [Left] O2 Sat by Pulse 89 92 97 Oximetry 03/28/21 03/28/21 03/28/21 02:11 02:15 02:21 Temperature Pulse Rate 82 79 76 Respiratory Rate Blood Pressure Blood Pressure [Left] O2 Sat by Pulse 97 96 97 Oximetry 03/28/21 03/28/21 03/28/21 02:26 02:30 02:35 Temperature Pulse Rate 81 77 74 Respiratory Rate Blood Pressure Blood Pressure [Left] O2 Sat by Pulse 97 97 97 Oximetry 03/28/21 03/28/21 03/28/21 02:41 02:45 02:50 Temperature Pulse Rate 82 79 83 Respiratory Rate Blood Pressure Blood Pressure [Left] O2 Sat by Pulse 97 99 98 Oximetry 03/28/21 03/28/21 03/28/21 02:55 03:01 03:06 Temperature Pulse Rate 80 81 99 H Respiratory Rate Blood Pressure Blood Pressure [Left] O2 Sat by Pulse 98 99 99 Oximetry 03/28/21 03/28/21 03/28/21 03:11 03:15 03:21 Temperature Pulse Rate 85 87 94 H Respiratory Rate Blood Pressure Blood Pressure [Left] O2 Sat by Pulse 98 99 99 Oximetry 03/28/21 03/28/21 03/28/21 03:25 03:26 03:30 Temperature Pulse Rate 83 82 85 Respiratory Rate Blood Pressure Blood Pressure [Left] O2 Sat by Pulse 88 87 99 Oximetry 03/28/21 03/28/21 03/28/21 03:35 03:40 03:46 Temperature Pulse Rate 87 91 H 84 Respiratory Rate Blood Pressure Blood Pressure [Left] O2 Sat by Pulse 99 99 99 Oximetry 03/28/21 03/28/21 03/28/21 03:51 03:56 04:01 Temperature Pulse Rate 85 109 H 80 Respiratory Rate Blood Pressure Blood Pressure [Left] O2 Sat by Pulse 99 98 98 Oximetry 03/28/21 03/28/21 03/28/21 04:06 04:08 05:18 Temperature Pulse Rate 94 H 90 Respiratory Rate Blood Pressure Blood Pressure [Left] O2 Sat by Pulse 99 86 91 Oximetry 03/28/21 03/28/21 03/28/21 05:36 05:37 05:41 Temperature Pulse Rate 108 H 100 H Respiratory Rate Blood Pressure Blood Pressure [Left] O2 Sat by Pulse 79 L 90 100 Oximetry 03/28/21 03/28/21 03/28/21 05:49 05:50 05:55 Temperature Pulse Rate 64 90 84 Respiratory Rate Blood Pressure Blood Pressure [Left] O2 Sat by Pulse 83 L 100 100 Oximetry 03/28/21 03/28/21 03/28/21 06:00 06:05 06:10 Temperature Pulse Rate 91 H 86 86 Respiratory Rate Blood Pressure Blood Pressure [Left] O2 Sat by Pulse 99 99 99 Oximetry 03/28/21 03/28/21 03/28/21 06:15 06:19 06:21 Temperature Pulse Rate 95 H 87 89 Respiratory Rate Blood Pressure Blood Pressure [Left] O2 Sat by Pulse 100 99 91 Oximetry 03/28/21 03/28/21 03/28/21 06:25 06:30 06:34 Temperature Pulse Rate 86 86 100 H Respiratory Rate Blood Pressure Blood Pressure [Left] O2 Sat by Pulse 99 97 99 Oximetry 03/28/21 03/28/21 03/28/21 06:40 06:45 06:46 Temperature Pulse Rate 112 H 107 H 104 H Respiratory Rate Blood Pressure Blood Pressure [Left] O2 Sat by Pulse 98 87 86 Oximetry 03/28/21 03/28/21 03/28/21 06:51 06:54 06:56 Temperature Pulse Rate 81 89 97 H Respiratory Rate Blood Pressure Blood Pressure [Left] O2 Sat by Pulse 98 90 95 Oximetry 03/28/21 03/28/21 03/28/21 06:59 07:01 07:06 Temperature Pulse Rate 86 83 88 Respiratory Rate Blood Pressure Blood Pressure [Left] O2 Sat by Pulse 85 97 99 Oximetry 03/28/21 03/28/21 03/28/21 07:11 07:16 07:21 Temperature Pulse Rate 86 85 82 Respiratory Rate Blood Pressure Blood Pressure [Left] O2 Sat by Pulse 98 97 98 Oximetry 03/28/21 03/28/21 03/28/21 07:26 07:31 07:36 Temperature Pulse Rate 87 92 H 93 H Respiratory Rate Blood Pressure Blood Pressure [Left] O2 Sat by Pulse 98 98 98 Oximetry 03/28/21 03/28/21 03/28/21 07:41 07:46 07:48 Temperature 97.9 F Pulse Rate 91 H 89 89 Respiratory 18 Rate Blood Pressure Blood Pressure 112/53 [Left] O2 Sat by Pulse 99 99 98 Oximetry 03/28/21 03/28/21 03/28/21 07:49 07:51 07:56 Temperature Pulse Rate 92 H 87 95 H Respiratory Rate Blood Pressure 112/53 Blood Pressure [Left] O2 Sat by Pulse 98 98 Oximetry 03/28/21 03/28/21 03/28/21 08:01 08:06 08:07 Temperature Pulse Rate 91 H 86 93 H Respiratory Rate Blood Pressure Blood Pressure [Left] O2 Sat by Pulse 98 95 92 Oximetry - Exam Breasts: deferred Abdomen: Present: soft (gravid ) Uterus: Present: normal (gravid ) FHR: auscultation normal Uterine Contraction Monitor Mode: External Uterine Contraction Pattern: Irregular Uterine Tone Measurement Phase: Resting Extremities: normal - Labs Labs: Abnormal Labs 03/19/21 03/22/21 03/26/21 17:23 11:51 00:26 WBC 13.6 H RBC 3.34 L 3.10 L 3.02 L Hgb 9.5 L 9.5 L Hct 29.0 L 27.8 L
[2021-03-28] MEDS ORDERED: AMPICILLIN/NS 1 GM/50 ML 1 GM/50 ML BAG IV SCH (10:00)
[2021-03-28] MEDS: BUTORPHANOL 2 MG/1 ML INJ IV PRN ×2 (15:21→19:31)
[2021-03-29] MEDS ORDERED: BICITRA ORAL LIQD 30ML PO ONE (07:02)
[2021-03-29] MEDS ORDERED: METOCLOPRAMIDE 10 MG/2 ML INJ IV ONE (07:02)
[2021-03-29] MEDS ORDERED: FAMOTIDINE 20 MG/2 ML INJ IV ONE (07:02)
[2021-03-29] MEDS ORDERED: LACTATED RINGERS 1,000 ML IV SCH (07:15)
[2021-03-29] MEDS ORDERED: METHYLERGONOVINE MALEATE 0.2 MG/ML VIAL IM ONE (07:41)
[2021-03-29] MEDS ORDERED: OXYTOCIN DRIP 30 UNITS/500 ML BAG IV SCH ×2 (08:00→12:17)
[2021-03-29] MEDS ORDERED: ceFAZolin/Water 2 GM/20 ML 2 GM/20 ML SYRINGE IV NR (08:00)
[2021-03-29] MEDS ORDERED: ONDANSETRON 4 MG/2 ML INJ ONE (08:03)
[2021-03-29] MEDS ORDERED: BUPIVACAINE/PF (0.5%) 5 MG/1 ML 30 ML VIAL INFILTRATI ONE (08:03)
[2021-03-29] MEDS ORDERED: KETOROLAC 30 MG/1 ML INJ ONE (08:03)
[2021-03-29] MEDS ORDERED: dexAMETHasone 20 MG/5 ML VIAL ONE (08:03)
--- NOTE | 2021-03-29 08:41 | Progress Note ---
Assessment and Plan - Patient Problems (1) Oligohydramnios antepartum Current Visit: Yes Status: Acute Qualifiers: Fetus number: single or unspecified fetus Qualified Code(s): O41.00X0 - Oligohydramnios, unspecified trimester, not applicable or unspecified Plan to address problem: Discontinue Pitocin Discussed intolerance of labor with pt, and possibility of C/S, pt is agreeable Notified physician of repeated late decels and intolerance of Pitocin titration Physician enroute to evaluate pt (2) Chronic hypertension affecting Current Visit: Yes Status: Acute (3) Advanced maternal age during Current Visit: Yes Status: Acute (4) Herpes infection in Current Visit: Yes Status: Acute Subjective - Subjective Date of service: 03/29/21 (Note by Zainab Humphrey CNM, [id number]) Principal diagnosis: Oligohydramnios, Chronic HTN Interval history: Cervidil removed last night at 1900. Low-dose Pitocin initiated, not tolerated well, repeated late decelerations Patient reports: movement normal, contractions (irregular), no new complaints, no loss of fluid, no vaginal bleeding Objective - Vital Signs Vital Signs: Vital Signs - 12hr 03/28/21 03/28/21 03/28/21 20:33 20:38 20:43 Temperature Pulse Rate 94 H 88 102 H Blood Pressure O2 Sat by Pulse 98 98 99 Oximetry 03/28/21 03/28/21 03/28/21 21:14 21:15 21:20 Temperature Pulse Rate 50 L 89 75 Blood Pressure O2 Sat by Pulse 82 L 85 96 Oximetry 03/28/21 03/28/21 03/28/21 21:25 21:30 21:35 Temperature Pulse Rate 82 77 75 Blood Pressure O2 Sat by Pulse 96 99 99 Oximetry 03/28/21 03/28/21 03/28/21 21:40 21:45 21:50 Temperature Pulse Rate 81 104 H 81 Blood Pressure O2 Sat by Pulse 99 98 98 Oximetry 03/28/21 03/28/21 03/28/21 21:55 22:00 22:05 Temperature Pulse Rate 84 87 82 Blood Pressure O2 Sat by Pulse 97 98 97 Oximetry 03/28/21 03/28/21 03/28/21 22:10 22:15 22:20 Temperature Pulse Rate 78 102 H 101 H Blood Pressure O2 Sat by Pulse 97 98 98 Oximetry 03/28/21 03/28/21 03/28/21 22:25 22:30 22:35 Temperature Pulse Rate 87 108 H 104 H Blood Pressure O2 Sat by Pulse 99 99 100 Oximetry 03/28/21 03/28/21 03/28/21 22:45 22:50 22:55 Temperature Pulse Rate 100 H 85 94 H Blood Pressure O2 Sat by Pulse 99 99 99 Oximetry 03/28/21 03/28/21 03/28/21 23:00 23:05 23:10 Temperature Pulse Rate 90 88 103 H Blood Pressure O2 Sat by Pulse 99 99 100 Oximetry 03/28/21 03/28/21 03/28/21 23:15 23:20 23:25 Temperature Pulse Rate 94 H 82 85 Blood Pressure O2 Sat by Pulse 99 99 99 Oximetry 03/28/21 03/28/21 03/28/21 23:30 23:35 23:39 Temperature Pulse Rate 95 H 84 85 Blood Pressure 107/63 O2 Sat by Pulse 98 99 Oximetry 03/28/21 03/28/21 03/28/21 23:40 23:45 23:50 Temperature Pulse Rate 83 92 H 84 Blood Pressure O2 Sat by Pulse 99 99 99 Oximetry 03/28/21 03/29/21 03/29/21 23:55 00:00 00:05 Temperature Pulse Rate 81 94 H 84 Blood Pressure O2 Sat by Pulse 99 98 97 Oximetry 03/29/21 03/29/21 03/29/21 00:10 00:15 00:20 Temperature Pulse Rate 86 87 72 Blood Pressure O2 Sat by Pulse 97 97 97 Oximetry 03/29/21 03/29/21 03/29/21 00:25 00:30 00:32 Temperature Pulse Rate 94 H 80 88 Blood Pressure 120/68 O2 Sat by Pulse 97 96 94 Oximetry 03/29/21 03/29/21 03/29/21 00:35 00:46 00:51 Temperature Pulse Rate 95 H 79 75 Blood Pressure O2 Sat by Pulse 98 98 98 Oximetry 03/29/21 03/29/21 03/29/21 00:56 01:01 01:06 Temperature Pulse Rate 70 72 67 Blood Pressure O2 Sat by Pulse 97 96 97 Oximetry 03/29/21 03/29/21 03/29/21 01:11 01:16 01:21 Temperature Pulse Rate 70 70 78 Blood Pressure O2 Sat by Pulse 96 97 96 Oximetry 03/29/21 03/29/21 03/29/21 01:26 01:30 01:31 Temperature 98.4 F Pulse Rate 86 79 Blood Pressure O2 Sat by Pulse 98 98 Oximetry 03/29/21 03/29/21 03/29/21 01:33 01:36 01:41 Temperature Pulse Rate 87 74 76 Blood Pressure 120/84 O2 Sat by Pulse 93 98 98 Oximetry 03/29/21 03/29/21 03/29/21 01:46 01:51 01:56 Temperature Pulse Rate 78 77 75 Blood Pressure O2 Sat by Pulse 97 98 98 Oximetry 03/29/21 03/29/21 03/29/21 02:01 02:06 02:11 Temperature Pulse Rate 75 88 100 H Blood Pressure O2 Sat by Pulse 98 97 95 Oximetry 03/29/21 03/29/21 03/29/21 02:16 02:21 02:28 Temperature Pulse Rate 74 77 103 H Blood Pressure O2 Sat by Pulse 98 97 83 L Oximetry 03/29/21 03/29/21 03/29/21 02:29 02:32 02:34 Temperature Pulse Rate 103 H 86 73 Blood Pressure 119/72 O2 Sat by Pulse 83 L 98 Oximetry 03/29/21 03/29/21 03/29/21 02:39 02:44 02:49 Temperature Pulse Rate 72 71 74 Blood Pressure O2 Sat by Pulse 97 99 99 Oximetry 03/29/21 03/29/21 03/29/21 02:54 02:59 03:04 Temperature Pulse Rate 75 73 76 Blood Pressure O2 Sat by Pulse 99 99 99 Oximetry 03/29/21 03/29/21 03/29/21 03:09 03:14 03:19 Temperature Pulse Rate 73 74 76 Blood Pressure O2 Sat by Pulse 99 99 100 Oximetry 03/29/21 03/29/21 03/29/21 03:24 03:29 03:31 Temperature Pulse Rate 76 78 73 Blood Pressure 107/69 O2 Sat by Pulse 100 99 Oximetry 03/29/21 03/29/21 03/29/21 03:34 03:39 03:44 Temperature Pulse Rate 73 74 74 Blood Pressure O2 Sat by Pulse 99 99 99 Oximetry 03/29/21 03/29/21 03/29/21 03:49 03:54 03:59 Temperature Pulse Rate 77 74 74 Blood Pressure O2 Sat by Pulse 100 100 98 Oximetry 03/29/21 03/29/21 03/29/21 04:04 04:09 04:14 Temperature Pulse Rate 92 H 93 H 90 Blood Pressure O2 Sat by Pulse 99 98 98 Oximetry 03/29/21 03/29/21 03/29/21 04:23 04:28 04:31 Temperature Pulse Rate 93 H 81 85 Blood Pressure 117/69 O2 Sat by Pulse 97 97 Oximetry 03/29/21 03/29/21 03/29/21 04:33 04:38 04:43 Temperature Pulse Rate 81 72 73 Blood Pressure O2 Sat by Pulse 98 97 97 Oximetry 03/29/21 03/29/21 03/29/21 04:48 04:53 04:58 Temperature Pulse Rate 71 75 75 Blood Pressure O2 Sat by Pulse 97 97 98 Oximetry 03/29/21 03/29/21 03/29/21 05:03 05:08 05:13 Temperature Pulse Rate 88 92 H 74 Blood Pressure 123/78 O2 Sat by Pulse 97 98 100 Oximetry 03/29/21 03/29/21 03/29/21 05:18 05:23 05:28 Temperature Pulse Rate 73 70 71 Blood Pressure O2 Sat by Pulse 100 99 99 Oximetry 03/29/21 03/29/21 03/29/21 05:33 05:34 05:38 Temperature Pulse Rate 69 73 79 Blood Pressure 114/63 O2 Sat by Pulse 99 98 Oximetry 03/29/21 03/29/21 03/29/21 05:43 05:48 05:53 Temperature Pulse Rate 78 71 72 Blood Pressure O2 Sat by Pulse 99 99 99 Oximetry 03/29/21 03/29/21 03/29/21 05:58 06:03 06:08 Temperature Pulse Rate 72 72 78 Blood Pressure 114/71 O2 Sat by Pulse 98 98 98 Oximetry 03/29/21 03/29/21 03/29/21 06:13 06:18 06:23 Temperature Pulse Rate 89 86 93 H Blood Pressure O2 Sat by Pulse 100 98 99 Oximetry 03/29/21 03/29/21 03/29/21 06:28 06:33 06:38 Temperature Pulse Rate 71 89 75 Blood Pressure 117/81 O2 Sat by Pulse 98 99 99 Oximetry 03/29/21 03/29/21 03/29/21 06:43 06:48 06:53 Temperature Pulse Rate 74 81 83 Blood Pressure O2 Sat by Pulse 99 99 99 Oximetry 03/29/21 03/29/21 03/29/21 07:04 07:05 07:10 Temperature Pulse Rate 76 72 72 Blood Pressure O2 Sat by Pulse 0 L 100 99 Oximetry 03/29/21 03/29/21 03/29/21 07:15 07:16 07:20 Temperature Pulse Rate 72 72 75 Blood Pressure O2 Sat by Pulse 99 92 100 Oximetry - Exam Breasts: deferred Cardiovascular: Regular rate Lungs: Normal air movement FHR: category 3 Uterine Contraction Monitor Mode: External Cervical Dilatation: 3 Cervical Effacement Percentage: 50 station: -3 Uterine Contraction Frequency (min): 3-6 Uterine Contraction Pattern: Irregular Uterine Tone Measurement Phase: Resting Uterine Contraction Intensity: Mild - Labs Labs: Abnormal Labs 03/19/21 03/22/21 03/26/21 17:23 11:51 00:26 WBC 13.6 H RBC 3.34 L 3.10 L 3.02 L Hgb 9.5 L 9.5 L Hct 29.0 L 27.8 L
[2021-03-29] MEDS ORDERED: NalbUPHINE 10 MG/1 ML INJ IV PRN (08:43)
[2021-03-29] MEDS ORDERED: ONDANSETRON 4 MG/2 ML INJ IV PRN ×2 (08:43→12:17)
[2021-03-29] MEDS ORDERED: HYDROmorphone 1 MG/1 ML INJ IV PRN (08:43)
[2021-03-29] MEDS ORDERED: NALOXONE 0.4 MG/1 ML INJ IV PRN ×2 (08:43→12:17)
[2021-03-29] MEDS ORDERED: diphenhydrAMINE 50 MG/ML VIAL IV PRN (08:43)
[2021-03-29] MEDS ORDERED: PROMETHAZINE 25 MG RECT SUPP PR PRN (08:43)
[2021-03-29] MEDS ORDERED: PROMETHAZINE 25 MG TAB PO PRN (08:43)
--- NOTE | 2021-03-29 08:44 | Anesthesia Day of Surgery ---
Anesthesia Day of Surgery - Day of Surgery Patient Examined: Yes Patient H&P Reviewed: Yes Patient is NPO: Yes Beta Blockers: No Cardiac Clearance: No Pulmonary Clearance: No Everette's Test: N/A
--- NOTE | 2021-03-29 08:44 | Anesthesia Consultation ---
Anesthesia Consult and Med Hx Date of service: 03/29/21 - Airway Anesthetic Teeth Evaluation: Good ROM Head & Neck: Adequate Mental/Hyoid Distance: Adequate Mallampati Class: Class II Intubation Access Assessment: Probably Good - Pulmonary Exam CTA: Yes - Cardiac Exam Cardiac Exam: RRR - Pre-Operative Health Status ASA Pre-Surgery Classification: ASA2 Proposed Anesthetic Plan: Spinal Nerve Block: TAP - Pulmonary Hx Smoking: No Hx Asthma: No Hx Respiratory Symptoms: No COPD: No Hx Pneumonia: No Hx Sleep Apnea: No - Cardiovascular System Hx Hypertension: No Hx Heart Attack/AMI: No Hx Angina: No - Central Nervous System Hx Seizures: No CVA: No Hx Psychiatric Problems: No - Gastrointestinal Hx Gastroesophageal Reflux Disease: Yes (well controlled) - Endocrine Hx Renal Disease: No Hx End Stage Renal Disease: No Hx Liver Disease: No Hx Insulin Dependent Diabetes: No Hx Non-Insulin Dependent Diabetes: No Hx Thyroid Disease: No Hx Hypothyroidism: No Hx Hyperthyroidism: No - Hematic Hx Anemia: No Hx Sickle Cell Disease: No - Other Systems Hx Alcohol Use: No Hx Obesity: No
--- NOTE | 2021-03-29 08:46 | Progress Note ---
Spinal Anesthesia Block - Spinal Anesthesia Block Start Time: 08:20 Stop Time: 08:33 Performed by:: JENNIFER MONTES ([facility]) Procedure: Spinal anesthesia block is being performed for [C/S]. H&P, labs have been reviewed. Patient's questions and concerns have been answered. Informed consent has been performed. Timeout has was performed. Patient in sitting position on side of bed. Sterile prep and drape was performed. 3 mL 1% lidocaine skin wheal at L [3]-L [4]. Needle introducer advanced. 25-gauge spinal needle advanced without success. 3 mL 1% lidocaine skin wheal at L [2]-L [3]. Needle introducer advanced. 25-gauge spinal needle advanced, [+] CSF [-] blood. [Marcaine 10mg and Precedex 5mcg] Spinal dose was given. All needles removed. Patient tolerated procedure well.
[2021-03-29] MEDS ORDERED: OXYTOCIN 10 UNIT/1 ML INJ ONE (09:16)
--- NOTE | 2021-03-29 10:00 | Procedure Note ---
OB Delivery Note - Delivery Date of Delivery: 03/29/21 Surgeon: ALLAN STEVENSON Estimated blood loss: other (800 mL) - Section Preop diagnosis: nonreassuring FHR tracing Postop diagnosis: same section procedure: section, primary low transverse Disposition: PACU - A at 1 minute: 8 at 5 minutes: 9 Infant Gender: Male (2524g (5lb 9oz) @ 0907 am)
--- NOTE | 2021-03-29 10:07 | Operative Report ---
Operative Report Operative Report: Date of procedure: February 27, 2021 Preoperative diagnosis: 1)IUP at 36w1d 2) Oligohydramnios 3) Nonreassuring status- repetitive late decelerations 4) Chronic HTN 5) AMA Postoperative diagnosis: Same Procedure: Primary low transverse section Surgeon: Winnie Fernandez M.D. Anesthesia: Regional Findings: 1) Viable male , Apgars 8 and 9, weight 2524 g, (5 lb 9 oz) in cephalic presentation 2) Normal-appearing uterus ovaries and tubes Estimated blood loss: 800 mL IV fluids:1200 mL Urine output: 200 mL, clear at the end of the procedure Drains: Casanova to gravity Specimens: Placenta to pathology Medications: Additional 10 units of pitocin in IV fluids Complications:None. Counts correct x 3 Disposition: Stable to PACU Indication for procedure: Pt is a 35 year old female at 36w1d who underwent induction of labor secondary to oligohydramnios. She began having repetitive late decelerations remote from delivery so the decision was made to proceed with section. Operation in detail: After the risks, benefits, alternatives and complications were explained to the patient she gave informed consent for the procedure. She was subsequently taken to the operating room where regional anesthesia was noted to be adequate. She was placed in the dorsal supine position with leftward tilt and prepped and draped in a normal sterile fashion. heart tones were noted prior to incision. A timeout was performed. A Pfannenstiel skin incision was made with the knife and carried down to the layer of the fascia with the Bovie. The fascia was incised in the midline and the fascial incision was extended bilaterally with the Bovie. The fascial incision was then stretched. The rectus muscles were then in the midline and partially transected for adequate visualization. The peritoneum was then entered bluntly. The peritoneal incision was extended with good visualization of the bladder. The peritoneal incision was then stretched. An Ismael retractor was placed. The bladder blade was then placed. The vesicouterine peritoneum was grasped with smooth pick ups and incised with Metzenbaum scissors . A bladder flap was then created digitally and the bladder blade was replaced. A transverse incision was made in the lower uterine segment with a knife and extended bilaterally with the bandage scissors. Amniotomy was performed with egress of clear fluid. head delivered with ease, followed by shoulders and body. bulb suctioned at delivery. Cord clamped and cut. handed to NICU staff in attendance. Cord blood was collected. The placenta was then delivered manually. The uterus was then exteriorized and cleared of all clots and debris. The hysterotomy was then reapproximated with 0 Vicryl in a running locked fashion. A second layer of the same suture was used in imbricating fashion. The hysterotomy was inspected and hemostasis was noted. The gutters were irrigated and cleared of all clots and debris. The hysterotomy was again inspected and noted to be hemostatic. Surgicel was placed over the hysterotomy. The Ismael retractor was removed. The uterus was placed back into the peritoneal cavity. The gutters were irrigated and cleared of all clots and degree. The peritoneum was reapproximated with 2-0 Vicryl in a running fashion incorporating the rectus muscles. Surgicel was placed over the rectus muscles. The fascia was reapproximated with 0 Vicryl in a running fashion. The subcutaneous tissue was r eapproximated with 3-0 Vicryl in a running fashion. The skin was reapproximated with 4-0 Vicryl in a subcuticular fashion. The incision was then covered with steri strips and a pressure dressing. The procedure was then ended. The patient tolerated the procedure well and was taken to the PACU in stable condition. All instrument, lap, and needle counts were correct 3.
--- NOTE | 2021-03-29 10:31 | Progress Note ---
Regional Anesthesia Block - Regional Anesthesia Block Start Time: 10:06 Stop Time: 10:12 Performed By:: JENNIFER MONTES ([facility] ) Procedure: Patient consented for TAP block for post surgical pain management. Patient identified, monitors placed, and time out performed. Mid axillary TAP identified bilaterally via ultrasound. Skin prepped bilaterally with [chlorhexidine] and [20g stimuplex] needle advanced to the TAP. 30ml [Marcaine 0.25% with 25mcg Precedex and Decadron 5mg] injected under ultrasound guidance on the [left] side. 30ml [Marcaine 0.25% with 25mcg Precedex and Decadron 5mg] injected under ultrasound guidance on the [right] side. Negative aspiration every 5mL, Patient tolerated the procedure well. No apparent complications seen.
[2021-03-29] MEDS ORDERED: MAGNESIUM HYDROXIDE (MOM) ORAL LIQD UDC PO PRN (12:17)
[2021-03-29] MEDS ORDERED: WITCH HAZEL/ GLYCERIN PAD TP PRN (12:17)
[2021-03-29] MEDS ORDERED: ACETAMINOPHEN 325 MG TAB PO PRN (12:17)
[2021-03-29] MEDS ORDERED: D5W/LACTATED RINGERS 1,000 ML IV SCH (12:17)
[2021-03-29] MEDS ORDERED: SIMETHICONE 80 MG CHEW TAB PO PRN (12:17)
[2021-03-29] MEDS ORDERED: LANOLIN/ZINC/DIMETHICONE (LANSINOH) 7 GM TP PRN (12:17)
[2021-03-29] MEDS ORDERED: IBUPROFEN 800 MG TAB PO PRN (12:17)
[2021-03-29] MEDS: ceFAZolin/NS 1 GM/50 ML 1 GM/50 ML BAG IV SCH ×2 (14:05→21:17)
[2021-03-29] MEDS: KETOROLAC 30 MG/1 ML INJ IV PRN ×2 (16:51→21:16)
[2021-03-30 01:27] LABS: Hematocrit 28.8 % (30.3-42.9); Hemoglobin 9.8 gm/dl (10.1-14.3)
[2021-03-30] MEDS: oxyCODONE /ACETAMINOPHEN 5-325MG TAB PO PRN ×2 (05:04→14:57)
[2021-03-30] MEDS ORDERED: TETANUS,DIPH,PERTUSS(ACELL) VACCINE 0.5 ML SYRINGE IM ONE (06:08)
--- NOTE | 2021-03-30 07:55 | Progress Note ---
Assessment and Plan - Patient Problems (1) Oligohydramnios antepartum Current Visit: Yes Status: Acute Qualifiers: Fetus number: single or unspecified fetus Qualified Code(s): O41.00X0 - Oligohydramnios, unspecified trimester, not applicable or unspecified (2) Chronic hypertension affecting Current Visit: Yes Status: Acute Plan to address problem: Labetalol on hold presently. Restart if BP returns to severe range. (3) Advanced maternal age during Current Visit: Yes Status: Acute (4) Herpes infection in Current Visit: Yes Status: Acute (5) S/P section Current Visit: Yes Status: Acute Plan to address problem: Routine postop care. Abdominal Binder. Encourage ambulation. Subjective - Subjective Date of service: 03/30/21 Principal diagnosis: POD#1 s/p primary at 36 wks, Oligohydramnios, Chronic HTN Interval history: No issues overnight. Patient reports: appetite normal, voiding normally, pain well controlled, flatus, ambulating normally, no bowel movement : doing well Objective - Vital Signs Latest vital signs: Vital Signs Temp Pulse Resp BP BP Pulse Ox 03/30/21 06:02 98.9 F 88 18 108/59 97 03/30/21 05:04 12 03/30/21 00:59 98.7 F 71 18 121/64 97 03/29/21 21:46 14 03/29/21 21:16 14 03/29/21 20:28 99.0 F 86 20 139/75 98 03/29/21 16:38 98.4 F 86 18 147/72 98 03/29/21 11:54 98.2 F 100 H 18 153/85 100 03/29/21 11:15 97.9 F 68 15 100 03/29/21 11:00 97.7 F 62 14 114/73 98 03/29/21 10:45 97.5 F L 62 16 119/74 97 03/29/21 10:30 97.4 F L 68 14 126/72 100 03/29/21 10:15 97.8 F 66 14 124/75 98 03/29/21 10:10 71 16 123/70 98 03/29/21 10:05 97.6 F 82 14 118/61 100 03/29/21 10:00 97.6 F 98 H 18 124/45 100 Intake and Output 03/29/21 03/30/21 03/30/21 22:59 06:59 14:59 Intake Total 480 Output Total 1400 Balance -920 Intake: Intake, Free Water 480 Output: Urine 1400 Indwelling Catheter 1400 Other: Total, Output Amount 400 - Exam Breasts: Present: deferred Abdomen: Present: soft Uterus: Present: fundal height at umbilicus Extremities: Present: normal Incision: Present: dressed - Labs Labs: Abnormal lab results 03/30/21 Range/Units 00:46 Hgb 9.8 L (10.1-14.3) gm/dl Hct 28.8 L (30.3-42.9) %
[2021-03-30] MEDS ORDERED: MEASLES, MUMPS & RUBELLA 12,500 UNIT/0.5 ML VACCINE SUB-Q ONE (10:08)
[2021-03-30] MEDS: IBUPROFEN 800 MG TAB PO SCH ×2 (10:40→22:26)
[2021-03-30] MEDS: FERROUS SULFATE 325 MG TAB PO SCH (10:41)
--- NOTE | 2021-03-30 12:49 | Post Anesthesia Evaluation ---
- Post Anesthesia Evaluation Patient Participated: Yes Airway Patent: Yes Stable Respiratory Function: Yes Nausea/Vomiting: No Temp > 96.8F: Yes Pain Manageable: Yes Adequeate Hydration: Yes Anesthesia Complications: No Block Receding Appropriately: Yes Patient on Ventilator: No
[2021-03-31] MEDS: IBUPROFEN 800 MG TAB PO SCH ×2 (02:00→18:31)
[2021-03-31] MEDS: oxyCODONE /ACETAMINOPHEN 5-325MG TAB PO PRN ×2 (05:18→17:25)
--- NOTE | 2021-03-31 08:30 | Progress Note ---
Assessment and Plan A: POD2 s/p Primary C/S at 36wks EGA for Oligo and CHTN AMA HSV2 Acute Iron Deficiency Anemia d/t blood-loss. Constipation P: Continue with routine care BP normotensive, continue to hold Labetalol unless BP ranges return to severe range Patient receiving Oral Fe supplementation Initiate Milk of Mag BID for relief of constipation Subjective - Subjective Date of service: 03/31/21 Principal diagnosis: POD#1 s/p primary at 36 wks, Oligohydramnios, Chronic HTN Interval history: POD2 s/p Primary C/S. Patient is feeling tired but well overall. Reporting adequate pain control, no issues with ambulation and voiding, +flatus, however patient has yet to have a bowel movement. Patient reports: appetite normal, voiding normally, pain well controlled, flatus, ambulating normally, no bowel movement : doing well Objective - Vital Signs Latest vital signs: Vital Signs Temp Pulse Resp BP BP Pulse Ox 03/30/21 23:29 98.5 F 82 20 128/81 97 03/30/21 17:10 97.8 F 91 H 20 128/73 Intake and Output 03/30/21 03/31/21 03/31/21 23:59 07:59 15:59 Intake Total 240 480 Balance 240 480 Intake: Oral 240 120 Intake, Free Water 360 Other: Total, Intake Amount 240 120 # Voids Void 2 - Exam Uterus: Present: normal, fundal height below umbilicus
[2021-03-31] MEDS ORDERED: MAGNESIUM HYDROXIDE (MOM) ORAL LIQD UDC PO SCH (09:00)
[2021-03-31] MEDS: FERROUS SULFATE 325 MG TAB PO SCH (11:40)
[2021-03-31] MEDS: MAGNESIUM HYDROXIDE (MOM) ORAL LIQD UDC PO PRN (11:40)
[2021-04-01] MEDS: IBUPROFEN 800 MG TAB PO SCH ×2 (00:22→06:08)
[2021-04-01] MEDS: MAGNESIUM HYDROXIDE (MOM) ORAL LIQD UDC PO PRN (01:53)
[2021-04-01] MEDS: oxyCODONE /ACETAMINOPHEN 5-325MG TAB PO PRN (01:53)
[2021-04-01] MEDS: FERROUS SULFATE 325 MG TAB PO SCH (09:28)
[2021-04-01 13:48] VITALS: BP 140/84
--- NOTE | 2021-04-16 22:23 | Discharge Summary ---
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 Primary C/S secondary to intolerance. Condition at discharge: Stable Disposition: TO HOME OR SELFCARE - Discharge Diagnoses (1) S/P section Status: Acute (2) Chronic hypertension affecting Status: Acute (3) Herpes infection in Status: Acute Plan - Discharge Medications Prescriptions: Ferrous Sulfate [Feosol 325 MG tab] 325 mg PO BID #60 tablet Ibuprofen [Motrin] 800 mg PO Q8HR PRN #30 tablet PRN Reason: Pain, Moderate (4-6) oxyCODONE /ACETAMINOPHEN [Percocet 5/325] 1 tab PO Q6HR PRN #40 tablet PRN Reason: Pain - Provider Discharge Summary Activity: routine, no sex for 6 weeks, no heavy lifting 4 weeks, no strenuous exercise Diet: routine Instructions: routine Additional instructions: [] Smoking cessation referral if applicable(refer to patient education folder for contact #) [] Refer to [facility] Booklet Call your doctor immediately for: * Fever > 100.5 * Heavy vaginal bleeding ( >1 pad per hour) * Severe persistent headache * Shortness of breath * Reddened, hot, painful area to leg or breast * Drainage or odor from incision. * Keep incision clean and dry at all times and follow doctor's instructions regarding bathing/showering - Follow up plan Follow up: ONESIMO GARZA MD [Primary Care Provider] - 7 Days Forms: [facility] Discharge Summary, Work/School Excuse Out Patient
== END 2021-04-01 14:15 | disposition home or self-care (01) | DRG 787 ==
LOC: TRG 15:16 → LD 15:19 → TRG 03-19 13:50 → LD 03-19 13:50 → OB 03-29 11:42
PROVIDERS: ADMIT Obstetrics & Gynecology; ATTEND Obstetrics & Gynecology
PROC: 10D00Z1 Extraction of Products of Conception, Low, Open Approach (ICD-10-PCS; principal; 2021-03-29)
PROC: 3E0234Z Introduction of Serum, Toxoid and Vaccine into Muscle, Percutaneous Approach (ICD-10-PCS; 2021-03-30)
PROC: 3E0134Z Introduction of Serum, Toxoid and Vaccine into Subcutaneous Tissue, Percutaneous Approach (ICD-10-PCS; 2021-03-30)
DX: O41.03X0 Oligohydramnios, third trimester, not applicable or unspecified (principal); D62 Acute posthemorrhagic anemia; O99.830 Other infection carrier state complicating pregnancy; O98.32 Other infections with a predominantly sexual mode of transmission complicating childbirth; O10.92 Unspecified pre-existing hypertension complicating childbirth; O98.52 Other viral diseases complicating childbirth; O76 Abnormality in fetal heart rate and rhythm complicating labor and delivery; K59.00 Constipation, unspecified; O90.9 Complication of the puerperium, unspecified; Z20.822 Contact with and (suspected) exposure to COVID-19; Z3A.34 34 weeks gestation of pregnancy; O09.523 Supervision of elderly multigravida, third trimester; E74.39 Other disorders of intestinal carbohydrate absorption; Z37.0 Single live birth; A60.09 Herpesviral infection of other urogenital tract; Z88.8 Allergy status to other drugs, medicaments and biological substances; Z23 Encounter for immunization
CPT/HCPCS: 36415; 59200; 76815; 76819; 76820; 81001; 84112; 85014; 85018; 85027; 86592; 86850; 86900; 86901; 87116; 88307; 96360; 96361; 99211; G0378; G0463; J0290; J0595; J0690; J0702; J1100; J1885; J2405; J2590; J2765; J3490; J7120; J7121; U0003